=== PATIENT | female | born 1940 | race Caucasian/White ===

== ENCOUNTER → 2016-09-09 | Outpatient (REF) | payer MEDICARE, OTHER ==
[~2016-09-09] MED LIST: /BENA10TA PO; /CARB20TAB OR; /LAMO10TA OR; /LAMO20TA OR; ACET-654 PO; ASPI325T OR; CALCCHW12 OR; CARB100C PO; CLOP75TA2 PO; OMEP20CA3 PO; PRIM125TAB PO; PRIM250T3 OR
[2016-09-09 19:38] LABS: MEAN CORPUSCULAR HEMOGLOBIN 31.2 pg (27.0-33.0); MEAN CORPUSCULAR HGB CONC 32.9 g/dl (32.0-36.5); MEAN CORPUSCULAR VOLUME 94.8 fl (80.0-96.0); RED CELL DISTRIBUTION WIDTH 12.9 % (11.5-14.5); WHITE BLOOD COUNT 5.6 K/mm3 (4.0-10.0)
[2016-09-09 20:20] LABS: ALBUMIN 3.6 GM/DL (3.2-5.2); ALBUMIN/GLOBULIN RATIO 1.09 (1.00-1.93); BILIRUBIN,TOTAL 0.3 MG/DL (0.2-1.0); CALCIUM LEVEL 9.4 MG/DL (8.8-10.2); CARBAMAZEPINE (TEGRETOL) LEVEL 5.9 UG/ML (4.0-10.0); CREATININE FOR GFR 0.97 MG/DL (0.55-1.02); FREE T4 1.08 NG/DL (0.76-1.46); GLOMERULAR FILTRATION RATE 59.3 (>39); POTASSIUM SERUM 4.7 MEQ/L (3.5-5.1); TOTAL PROTEIN 6.9 GM/DL (6.4-8.2)
[2016-09-12 00:06] LABS: PHENOBARBITAL (PRIMIDONE) 19 ug/mL (15-40)
== END ==
LOC: M SFHCADAM 11:38
PROVIDERS: ATTEND Family Medicine
DX: R53.83 Other fatigue (principal); I11.9 Hypertensive heart disease without heart failure; E04.2 Nontoxic multinodular goiter; G40.89 Other seizures; E78.2 Mixed hyperlipidemia; M81.0 Age-related osteoporosis without current pathological fracture; E55.9 Vitamin D deficiency, unspecified
CPT/HCPCS: 80053; 80061; 80156; 80175; 80188; 82306; 84439; 84443; 85027; G0463

== ENCOUNTER → 2017-01-28 | Outpatient (REF) | payer MEDICARE, OTHER ==
[2017-01-31 14:13] LABS: PHENOBARBITAL (PRIMIDONE) 21 ug/mL (15-40)
== END ==
LOC: M LABNEURO 18:00 → M LAB REF 18:00
PROVIDERS: ATTEND Physician Assistant Medical
DX: Z51.81 Encounter for therapeutic drug level monitoring (principal); Z79.899 Other long term (current) drug therapy; R56.9 Unspecified convulsions

== ENCOUNTER → 2017-03-12 | Outpatient (CLI) | payer MEDICARE, OTHER | LOC: M ADAMS 10:59 | DX: R07.81 Pleurodynia (principal); M85.88 Other specified disorders of bone density and structure, other site; Z87.81 Personal history of (healed) traumatic fracture | CPT/HCPCS: 71101 ==

== ENCOUNTER → 2017-07-09 | Outpatient (REF) | payer MEDICARE, OTHER ==
[2017-07-09 12:55] LABS: HEMATOCRIT 38.5 % (36.0-47.0); HEMOGLOBIN 12.8 g/dl (12.0-15.5); MEAN CORPUSCULAR HGB CONC 33.2 g/dl (32.0-36.5); MEAN CORPUSCULAR VOLUME 93.2 fl (80.0-96.0); PLATELET COUNT, AUTOMATED 265 10^3/uL (150-450); RED BLOOD COUNT 4.13 10^6/uL (4.00-5.40); RED CELL DISTRIBUTION WIDTH 12.7 % (11.5-14.5); WHITE BLOOD COUNT 7.9 10^3/uL (4.0-10.0)
[2017-07-09 14:12] LABS: ALBUMIN 3.8 GM/DL (3.2-5.2); ALBUMIN/GLOBULIN RATIO 1.15 (1.00-1.93); ALKALINE PHOSPHATASE 164 U/L (45-117); ALT/SGPT 12 U/L (12-78); ANION GAP 6 MEQ/L (8-16); AST/SGOT 10 U/L (7-37); BILIRUBIN,TOTAL 0.3 MG/DL (0.2-1.0); BLOOD UREA NITROGEN 26 MG/DL (7-18); CALCIUM LEVEL 9.7 MG/DL (8.8-10.2); CARBON DIOXIDE LEVEL 31 MEQ/L (21-32); CHLORIDE LEVEL 102 MEQ/L (98-107); CREATININE FOR GFR 1.11 MG/DL (0.55-1.30); FREE T4 1.11 NG/DL (0.76-1.46); GLOMERULAR FILTRATION RATE 50.6 (>39); GLUCOSE, FASTING 76 MG/DL (70-100); POTASSIUM SERUM 5.1 MEQ/L (3.5-5.1); SODIUM LEVEL 139 MEQ/L (136-145); TOTAL PROTEIN 7.1 GM/DL (6.4-8.2)
== END ==
LOC: M SFHCADAM 10:37
DX: I11.9 Hypertensive heart disease without heart failure (principal); G40.89 Other seizures; E04.2 Nontoxic multinodular goiter
CPT/HCPCS: 84443

== ENCOUNTER → 2017-09-16 | Outpatient (REF) | payer MEDICARE, OTHER ==
[2017-09-16 19:02] LABS: CARBAMAZEPINE (TEGRETOL) LEVEL 5.3 UG/ML (4.0-10.0)
[2017-09-19 16:49] LABS: LAMOTRIGINE (LAMICTAL) 1.4 ug/mL (2.0-20.0); PHENOBARBITAL (PRIMIDONE) 21 ug/mL (15-40)
== END ==
LOC: M LABDRWCV 17:57
DX: R56.9 Unspecified convulsions (principal); Z51.81 Encounter for therapeutic drug level monitoring; Z79.899 Other long term (current) drug therapy
CPT/HCPCS: 80156

== ENCOUNTER 2018-04-06 18:04 | Emergency (ER) | payer MEDICARE, OTHER ==
[~2018-04-06] VITALS: Ht 172.7 cm; Wt 81.8 kg
[2018-04-06] MEDS ORDERED: MORPHINE 2 MG/ML 1ML SYRINGE (J2270) SC ONE (19:45)
[2018-04-06] MEDS ORDERED: MORPHINE 2 MG/ML 1ML SYRINGE (J2270) IV ONE ×2 (20:00→23:45)
[2018-04-06 21:29] LABS: HEMOGLOBIN 12.4 g/dl (12.0-15.5); MEAN CORPUSCULAR HEMOGLOBIN 30.7 pg (27.0-33.0); MEAN CORPUSCULAR HGB CONC 32.6 g/dl (32.0-36.5); MEAN CORPUSCULAR VOLUME 94.1 fl (80.0-96.0); PLATELET COUNT, AUTOMATED 264 10^3/uL (150-450); RED BLOOD COUNT 4.04 10^6/uL (4.00-5.40)
[2018-04-06 21:40] LABS: CALCIUM LEVEL 9.4 MG/DL (8.8-10.2); CREATININE FOR GFR 0.98 MG/DL (0.55-1.30); GLOMERULAR FILTRATION RATE 58.3 (>39); POTASSIUM SERUM 4.5 MEQ/L (3.5-5.1)
[2018-04-06 23:45] VITALS: BP 136/90
--- NOTE | 2018-04-07 08:33 | REP ---
Chest one-view HISTORY: Preop Comparison: 02/06/2013 The lungs are clear. The cardiac silhouette is enlarged. The pulmonary vasculature is normal in appearance. Impression: Cardiomegaly. Electronically Signed by Jonnathan Navarro MD 04/07/2018 08:25 A
--- NOTE | 2018-04-07 08:41 | REP ---
LEFT FEMUR, FOUR VIEWS: HISTORY: Fall. The patient is status post left total hip replacement. An intramedullary venkata is present. There is a fracture of the distal femur. There is lateral displacement of the distal fracture fragment. There is no dislocation. There is moderate narrowing of the knee joint space. The bony structure is osteopenic. IMPRESSION: Fracture of the distal femur. Electronically Signed by Jonnathan Navarro MD 04/07/2018 08:42 A
--- NOTE | 2018-04-07 08:44 | REP ---
LEFT HIP, AP PELVIS: HISTORY: Fall. The patient is status post left total hip replacement. There is no fracture. Calcification is present lateral to the left acetabulum. This represents ligamentous or tendon calcification or an old avulsion fracture fragment. There is moderate narrowing of the right hip joint space. There is no dislocation. The bony structure is osteopenic. IMPRESSION: The patient is status post left total hip replacement. Electronically Signed by Jonnathan Navarro MD 04/07/2018 08:55 A
== END 2018-04-07 00:14 | disposition short-term general hospital (02) ==
LOC: EDBD 18:04 → M ED 18:04
DX: S72.402A Unspecified fracture of lower end of left femur, initial encounter for closed fracture (principal); W05.0XXA Fall from non-moving wheelchair, initial encounter; Y92.9 Unspecified place or not applicable
CPT/HCPCS: 71045; 73502; 73552; 80048; 85027; 86850; 86900; 86901; 96374; 96376; 99285; J2270

== ENCOUNTER → 2018-06-08 | Outpatient (REF) | payer MEDICARE, OTHER, BC ==
[~2018-06-08] MED LIST changes: -/CARB20TAB OR; -/LAMO10TA OR; -/LAMO20TA OR; +CARB1TAB20 OR; +LAMI1TAB7 OR; +LAMI1TAB9 OR
[2018-06-08 09:19] LABS: HEMATOCRIT 34.3 % (36.0-47.0); HEMOGLOBIN 11.1 g/dl (12.0-15.5); MEAN CORPUSCULAR HEMOGLOBIN 29.8 pg (27.0-33.0); MEAN CORPUSCULAR HGB CONC 32.4 g/dl (32.0-36.5); MEAN CORPUSCULAR VOLUME 92.2 fl (80.0-96.0); PLATELET COUNT, AUTOMATED 256 10^3/uL (150-450); RED BLOOD COUNT 3.72 10^6/uL (4.00-5.40); WHITE BLOOD COUNT 6.9 10^3/uL (4.0-10.0)
[2018-06-08 09:40] LABS: BLOOD UREA NITROGEN 25 MG/DL (7-18); CALCIUM LEVEL 9.3 MG/DL (8.8-10.2); CARBON DIOXIDE LEVEL 27 MEQ/L (21-32); CHLORIDE LEVEL 101 MEQ/L (98-107); CREATININE FOR GFR 0.78 MG/DL (0.55-1.30); GLOMERULAR FILTRATION RATE > 60.0 (>39); GLUCOSE, FASTING 81 MG/DL (70-100); POTASSIUM SERUM 4.9 MEQ/L (3.5-5.1); SODIUM LEVEL 135 MEQ/L (136-145)
== END ==
PROVIDERS: ATTEND Family Medicine
DX: I10 Essential (primary) hypertension (principal)

== ENCOUNTER → 2018-06-15 | Outpatient (REF) ==
[2018-06-15 09:35] LABS: HEMATOCRIT 32.7 % (36.0-47.0); HEMOGLOBIN 10.8 g/dl (12.0-15.5); MEAN CORPUSCULAR HEMOGLOBIN 29.9 pg (27.0-33.0); MEAN CORPUSCULAR VOLUME 90.6 fl (80.0-96.0); PLATELET COUNT, AUTOMATED 241 10^3/uL (150-450); RED BLOOD COUNT 3.61 10^6/uL (4.00-5.40); WHITE BLOOD COUNT 7.1 10^3/uL (4.0-10.0)
[2018-06-15 10:01] LABS: BLOOD UREA NITROGEN 20 MG/DL (7-18); CALCIUM LEVEL 9.3 MG/DL (8.8-10.2); CARBON DIOXIDE LEVEL 27 MEQ/L (21-32); CHLORIDE LEVEL 100 MEQ/L (98-107); CREATININE FOR GFR 0.71 MG/DL (0.55-1.30); GLOMERULAR FILTRATION RATE > 60.0 (>39); GLUCOSE, FASTING 85 MG/DL (70-100); POTASSIUM SERUM 4.5 MEQ/L (3.5-5.1); SODIUM LEVEL 133 MEQ/L (136-145)
== END ==
PROVIDERS: ATTEND Family Medicine
DX: I10 Essential (primary) hypertension (principal)

== ENCOUNTER 2018-06-18 16:20 | Emergency (ER) | payer MEDICARE, OTHER ==
[~2018-06-18] VITALS: Ht 167.6 cm; Wt 92.7 kg
[2018-06-18] MEDS ORDERED: ONDANSETRON 4MG/2ML VIAL (J2405) IV ONE ×2 (16:30→17:00)
[2018-06-18] MEDS ORDERED: LABETALOL HCL 100 MG/20 ML VIAL IV PRN (16:45)
--- NOTE | 2018-06-18 17:07 | REP ---
CT of the brain without IV contrast: Comparison is 02/06/2013. There is a craniotomy bone flap in the right frontal temporal area, similar to the prior study. There is no hemorrhage. There is no edema, mass effect or midline shift. The sulci and ventricles are enlarged compatible with diffuse volume loss. This is unchanged. There are areas of decreased attenuation in the subcortical periventricular white matter compatible with chronic microvascular ischemia, unchanged. There is diffuse volume loss, unchanged. There is a lacunar infarct in the thalamus on the left, unchanged. Impression: There is no hemorrhage, acute infarct or mass. There are is a diffuse volume loss and chronic microvascular ischemia, unchanged. 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 There is a right frontotemporal craniotomy bone flap, unchanged. Electronically Signed by Roe Rojas MD 06/18/2018 04:58 P
--- NOTE | 2018-06-18 17:14 | REP ---
Acute abdominal series five views including AP chest, two supine views of the abdomen and a cross-table lateral view of the abdomen: AP chest: Comparison is 04/06/2018. The lung galvin are clear. There is cardiomegaly, unchanged. The rafaela, mediastinum, skeletal structures are unchanged. The study is performed with the patient supine, and is insensitive for free subdiaphragmatic air. Impression: No acute cardiopulmonary findings. The study is insensitive for free subdiaphragmatic air. Abdomen, supine and cross-table lateral views: The bowel gas pattern is normal. On the lateral view there is a large linear density mimicking an air-fluid level, likely an artifact. No air-fluid levels are identified otherwise. There is a left hip arthroplasty. Impression: No evidence of bowel obstruction. Normal bowel gas pattern. Unusual linear density on the cross-table lateral review, likely an artifact. Electronically Signed by Roe Rojas MD 06/18/2018 05:06 P
[2018-06-18] MEDS ORDERED: TUBE5INJ ID (17:24)
[2018-06-18] MEDS ORDERED: LISI10TA4 PO (17:24)
[2018-06-18] MEDS ORDERED: BAYE325T12 PO (17:24)
[2018-06-18] MEDS ORDERED: OMEP20CA3 PO (17:24)
[2018-06-18] MEDS ORDERED: RANI150T14 PO (17:24)
[2018-06-18] MEDS ORDERED: SENN18TA PO (17:24)
[2018-06-18] MEDS ORDERED: ACET-897 PO (17:24)
[2018-06-18] MEDS ORDERED: CARB20TAXR PO (17:24)
[2018-06-18] MEDS ORDERED: DULC10SU2 PR (17:24)
[2018-06-18] MEDS ORDERED: LAMI1TAB7 PO (17:24)
[2018-06-18] MEDS ORDERED: PRIM250T8 PO (17:24)
[2018-06-18] MEDS ORDERED: IRON65TA2 PO (17:24)
[2018-06-18] MEDS ORDERED: PROC25SU24 PR (17:24)
[2018-06-18] MEDS ORDERED: OYST250T6 PO (17:24)
[2018-06-18] MEDS ORDERED: MOM30SS PO (17:24)
[2018-06-18] MEDS ORDERED: LOVE1INJ2 SC (17:24)
[2018-06-18] MEDS ORDERED: COLA100C5 PO (17:24)
[2018-06-18] MEDS ORDERED: CLOT1CRE27 TOP (17:24)
[2018-06-18] MEDS ORDERED: ACET-907 PO (17:24)
[2018-06-18] MEDS ORDERED: ENEMENE PR (17:24)
[2018-06-18 17:56] LABS: ALBUMIN 3.8 GM/DL (3.2-5.2); ALT/SGPT 23 U/L (12-78); BILIRUBIN,DIRECT < 0.1 MG/DL (0.0-0.2); BILIRUBIN,TOTAL 0.4 MG/DL (0.2-1.0); BLOOD UREA NITROGEN 22 MG/DL (7-18); CALCIUM LEVEL 9.4 MG/DL (8.8-10.2); CARBON DIOXIDE LEVEL 26 MEQ/L (21-32); CHLORIDE LEVEL 98 MEQ/L (98-107); CPK CREATINE PHOSPHOKINASE 116 U/L (26-192); CREATININE FOR GFR 0.72 MG/DL (0.55-1.30); GLOMERULAR FILTRATION RATE > 60.0 (>39); GLUCOSE, FASTING 135 MG/DL (70-100); LIPASE 60 U/L (73-393); MB/CK RELATIVE INDEX 1.47 (< OR =4); POTASSIUM SERUM 4.8 MEQ/L (3.5-5.1); SODIUM LEVEL 134 MEQ/L (136-145); TOTAL PROTEIN 7.6 GM/DL (6.4-8.2); TROPONIN I < 0.02 NG/ML (< 0.10)
[2018-06-18 18:02] LABS: BASO % 0.2 % (0.0-1.0); HEMATOCRIT 39.4 % (36.0-47.0); HEMOGLOBIN 13.4 g/dl (12.0-15.5); LYMPH # 0.5 10^3/uL (1.5-4.5); LYMPH % 6.2 % (24.0-44.0); MEAN CORPUSCULAR HEMOGLOBIN 30.3 pg (27.0-33.0); MEAN CORPUSCULAR VOLUME 89.1 fl (80.0-96.0); MONO # 0.2 10^3/uL (0.0-0.8); MONO % 2.7 % (0.0-5.0); NEUTROPHILS # 7.8 10^3/uL (1.8-7.7); NEUTROPHILS % 90.6 % (36.0-66.0); PLATELET COUNT, AUTOMATED 279 10^3/uL (150-450); RED BLOOD COUNT 4.42 10^6/uL (4.00-5.40); WHITE BLOOD COUNT 8.6 10^3/uL (4.0-10.0)
--- NOTE | 2018-06-18 19:41 | ECGEPIP ---
Stationary ECG Study [facility] - ED Test Date: 2018-06-18 Pat Name: TERRIE FONSECA Department: Room: - Gender: F [employer] Chief Scientist: TC : 1940 Requested By: KRYSTLE Bey Order Number: [id number] Reading MD: Reuben Bosch Measurements Intervals [place] Rate: 83 P: 54 MS: 231 QRS: -40 QRSD: 101 T: 41 QT: 378 QTc: 445 Interpretive Statements SINUS RHYTHM WITH FIRST DEGREE AV BLOCK WITH OCCASIONAL VENTRICULAR PREMATURE COMP COMPLEXES MARKED LEFT AXIS DEVIATION PATTERN CONSISTENT WITH PULMONARY DISEASE INCOMPLETE RIGHT BUNDLE BRANCH BLOCK INFERIOR INFARCT AGE UNDETERMINED DELAYED R WAVE PROGRESSION CW 02/06/13 RATE INCREASED Electronically Signed On 06-18-2018 19:41:21 EDT by Reuben Bosch
[2018-06-18 20:05] VITALS: BP 122/66
[2018-06-18 21:33] LABS: ERYTHROCYTE SEDIMENTATION RATE 24 mm/hr (0-30)
== END 2018-06-18 20:17 | disposition home or self-care (01) ==
LOC: M ED 16:20 → EDBD 16:20 → M ED 20:17
DX: R51 Headache (principal); Z79.899 Other long term (current) drug therapy; Z88.8 Allergy status to other drugs, medicaments and biological substances; J30.89 Other allergic rhinitis
CPT/HCPCS: 36415; 51702; 70450; 74021; 80048; 80076; 81001; 82550; 82553; 83690; 84484; 85025; 85652; 93005; 93041; 96374; 96375; 99285; J2405

== ENCOUNTER → 2018-06-21 | Outpatient (REF) | payer MEDICARE, OTHER ==
[~2018-06-21] MED LIST changes: +ACET-897 PO; +ACET-907 PO; +BAYE325T12 PO; +CARB20TAXR PO; +CLOT1CRE27 TOP; +COLA100C5 PO; +DULC10SU2 PR; +ENEMENE PR; +IRON65TA2 PO; +LAMI1TAB7 PO; +LISI10TA4 PO; +LOVE1INJ2 SC; +MOM30SS PO; +OYST250T6 PO; +PRIM250T8 PO; +PROC25SU24 PR; +RANI150T14 PO; +SENN18TA PO; +TUBE5INJ ID
[2018-06-23 14:11] LABS: LAMOTRIGINE (LAMICTAL) 2.6 ug/mL (2.0-20.0)
== END ==
PROVIDERS: ATTEND Family Medicine
DX: R56.9 Unspecified convulsions (principal)

== ENCOUNTER → 2018-06-22 | Outpatient (REF) | payer MEDICARE, OTHER ==
[2018-06-22 09:21] LABS: HEMATOCRIT 37.1 % (36.0-47.0); MEAN CORPUSCULAR HEMOGLOBIN 30.2 pg (27.0-33.0); MEAN CORPUSCULAR HGB CONC 32.3 g/dl (32.0-36.5); MEAN CORPUSCULAR VOLUME 93.5 fl (80.0-96.0); PLATELET COUNT, AUTOMATED 261 10^3/uL (150-450); RED BLOOD COUNT 3.97 10^6/uL (4.00-5.40); WHITE BLOOD COUNT 5.9 10^3/uL (4.0-10.0)
[2018-06-22 09:33] LABS: BLOOD UREA NITROGEN 32 MG/DL (7-18); CALCIUM LEVEL 9.4 MG/DL (8.8-10.2); CARBON DIOXIDE LEVEL 29 MEQ/L (21-32); CHLORIDE LEVEL 103 MEQ/L (98-107); CREATININE FOR GFR 0.89 MG/DL (0.55-1.30); GLOMERULAR FILTRATION RATE > 60.0 (>39); GLUCOSE, FASTING 91 MG/DL (70-100); POTASSIUM SERUM 4.2 MEQ/L (3.5-5.1); SODIUM LEVEL 139 MEQ/L (136-145)
== END ==
PROVIDERS: ATTEND Family Medicine
DX: R56.9 Unspecified convulsions (principal)

== ENCOUNTER → 2018-07-07 | Outpatient (REF) | payer MEDICARE, OTHER ==
[2018-07-07 09:15] LABS: HEMATOCRIT 34.2 % (36.0-47.0); HEMOGLOBIN 11.2 g/dl (12.0-15.5); MEAN CORPUSCULAR HEMOGLOBIN 30.6 pg (27.0-33.0); MEAN CORPUSCULAR HGB CONC 32.7 g/dl (32.0-36.5); MEAN CORPUSCULAR VOLUME 93.4 fl (80.0-96.0); PLATELET COUNT, AUTOMATED 196 10^3/uL (150-450); RED BLOOD COUNT 3.66 10^6/uL (4.00-5.40); WHITE BLOOD COUNT 5.5 10^3/uL (4.0-10.0)
[2018-07-07 09:33] LABS: BLOOD UREA NITROGEN 26 MG/DL (7-18); CALCIUM LEVEL 8.9 MG/DL (8.8-10.2); CARBON DIOXIDE LEVEL 29 MEQ/L (21-32); CHLORIDE LEVEL 105 MEQ/L (98-107); CREATININE FOR GFR 0.89 MG/DL (0.55-1.30); GLOMERULAR FILTRATION RATE > 60.0 (>39); GLUCOSE, FASTING 83 MG/DL (70-100); POTASSIUM SERUM 4.8 MEQ/L (3.5-5.1); SODIUM LEVEL 140 MEQ/L (136-145)
== END ==
PROVIDERS: ATTEND Family Medicine
DX: I10 Essential (primary) hypertension (principal)

== ENCOUNTER → 2018-07-27 | Outpatient (CLI) | payer MEDICARE, OTHER ==
--- NOTE | 2018-07-27 15:15 | REP ---
Clinical: Status post fixation for intertrochanteric femur fracture. Technique: AP and cross-table lateral views of the left femur. Findings: The patient is known to be status post satisfactory open reduction and fixation. Overlying postsurgical changes noted. Anatomical alignment of the remaining osseous structures as well as the orthopedic hardware noted. Impression: Status post satisfactory open reduction and fixation. Electronically Signed by Shivam Pérez MD 07/27/2018 03:07 P
== END ==
LOC: M RAD 12:44
PROVIDERS: ATTEND Family Medicine
DX: Z47.89 Encounter for other orthopedic aftercare (principal)

== ENCOUNTER → 2018-08-04 | Outpatient (REF) | payer MEDICARE, OTHER ==
[2018-08-04 10:06] LABS: HEMATOCRIT 36.9 % (36.0-47.0); HEMOGLOBIN 12.1 g/dl (12.0-15.5); MEAN CORPUSCULAR HGB CONC 32.8 g/dl (32.0-36.5); MEAN CORPUSCULAR VOLUME 94.6 fl (80.0-96.0); PLATELET COUNT, AUTOMATED 236 10^3/uL (150-450)
[2018-08-04 10:42] LABS: BLOOD UREA NITROGEN 21 MG/DL (7-18); CALCIUM LEVEL 9.7 MG/DL (8.8-10.2); CARBON DIOXIDE LEVEL 29 MEQ/L (21-32); CHLORIDE LEVEL 101 MEQ/L (98-107); CREATININE FOR GFR 0.81 MG/DL (0.55-1.30); GLOMERULAR FILTRATION RATE > 60.0 (>39); GLUCOSE, FASTING 128 MG/DL (70-100); POTASSIUM SERUM 4.8 MEQ/L (3.5-5.1); SODIUM LEVEL 137 MEQ/L (136-145)
== END ==
PROVIDERS: ATTEND Family Medicine
DX: I10 Essential (primary) hypertension (principal)

== ENCOUNTER → 2018-09-01 | Outpatient (REF) | payer MEDICARE, OTHER ==
[2018-09-01 09:34] LABS: HEMOGLOBIN 11.6 g/dl (12.0-15.5); MEAN CORPUSCULAR HEMOGLOBIN 31.7 pg (27.0-33.0); MEAN CORPUSCULAR HGB CONC 33.1 g/dl (32.0-36.5); MEAN CORPUSCULAR VOLUME 95.6 fl (80.0-96.0); PLATELET COUNT, AUTOMATED 221 10^3/uL (150-450); RED BLOOD COUNT 3.66 10^6/uL (4.00-5.40); WHITE BLOOD COUNT 5.1 10^3/uL (4.0-10.0)
[2018-09-01 09:39] LABS: BLOOD UREA NITROGEN 20 MG/DL (7-18); CALCIUM LEVEL 9.6 MG/DL (8.8-10.2); CARBON DIOXIDE LEVEL 28 MEQ/L (21-32); CHLORIDE LEVEL 103 MEQ/L (98-107); CREATININE FOR GFR 0.77 MG/DL (0.55-1.30); GLOMERULAR FILTRATION RATE > 60.0 (>39); GLUCOSE, FASTING 84 MG/DL (70-100); POTASSIUM SERUM 4.6 MEQ/L (3.5-5.1); SODIUM LEVEL 137 MEQ/L (136-145)
== END ==
PROVIDERS: ATTEND Family Medicine
DX: I10 Essential (primary) hypertension (principal)

== ENCOUNTER → 2018-09-09 | Outpatient (CLI) | payer MEDICARE ==
[~2018-09-09] MED LIST changes: +OMEP20CA4 PO
--- NOTE | 2018-09-09 18:49 | REP ---
Left femur: Four views: History: Displaced supracondylar fracture. Findings: Four views left femur are compared with prior study from July 27, 2018. The patient status post right hip replacement with intramedullary venkata in place. In addition a laterally applied screw plate fixation device is seen fixing the distal femur where there is evidence of a healing comminuted distal femoral fracture. This is anatomically aligned. No periosteal callus formation is visible. There is diffuse osteopenia. Electronically Signed by Homero Morgan MD 09/10/2018 08:04 A
== END ==
LOC: M RAD 12:55
PROVIDERS: ATTEND Family Medicine
DX: S72.402D Unspecified fracture of lower end of left femur, subsequent encounter for closed fracture with routine healing (principal); X58.XXXD Exposure to other specified factors, subsequent encounter; Y92.89 Other specified places as the place of occurrence of the external cause

== ENCOUNTER → 2018-09-13 | Outpatient (REF) ==
[2018-09-13 13:50] LABS: HEMATOCRIT 37.9 % (36.0-47.0); HEMOGLOBIN 12.6 g/dl (12.0-15.5); MEAN CORPUSCULAR HEMOGLOBIN 31.4 pg (27.0-33.0); MEAN CORPUSCULAR HGB CONC 33.2 g/dl (32.0-36.5); MEAN CORPUSCULAR VOLUME 94.5 fl (80.0-96.0); PLATELET COUNT, AUTOMATED 263 10^3/uL (150-450); RED BLOOD COUNT 4.01 10^6/uL (4.00-5.40); WHITE BLOOD COUNT 6.7 10^3/uL (4.0-10.0)
[2018-09-13 14:09] LABS: C REACTIVE PROTEIN QUANTITATIV 2.57 MG/DL (0.00-0.30); CALCIUM LEVEL 9.6 MG/DL (8.8-10.2); GLOMERULAR FILTRATION RATE 56.9 (>39); POTASSIUM SERUM 4.7 MEQ/L (3.5-5.1); URIC ACID 5.6 MG/DL (2.6-6.0)
[2018-09-13 14:21] LABS: ERYTHROCYTE SEDIMENTATION RATE 32 mm/hr (0-30)
--- NOTE | 2018-09-13 17:00 | REP ---
RIGHT 1ST TOE: Single portable view of the right 1st toe was performed. There is no fracture or dislocation. There is no overt osseous destruction or evidence of periosteal reaction. IMPRESSION: No evidence of fracture or dislocation. No definite radiographic sign of osteomyelitis. Electronically Signed by Roe Garner MD 09/14/2018 05:24 P
== END ==
PROVIDERS: ATTEND Family Medicine
DX: R23.8 Other skin changes (principal)

== ENCOUNTER → 2018-09-13 | Outpatient (REF) | PROVIDERS: ATTEND Family Medicine | DX: L53.9 Erythematous condition, unspecified (principal) ==

== ENCOUNTER → 2018-09-15 | Outpatient (REF) ==
[2018-09-15 10:11] LABS: HEMATOCRIT 37.7 % (36.0-47.0); HEMOGLOBIN 12.2 g/dl (12.0-15.5); MEAN CORPUSCULAR HEMOGLOBIN 30.7 pg (27.0-33.0); MEAN CORPUSCULAR HGB CONC 32.4 g/dl (32.0-36.5); MEAN CORPUSCULAR VOLUME 94.7 fl (80.0-96.0); PLATELET COUNT, AUTOMATED 247 10^3/uL (150-450); RED BLOOD COUNT 3.98 10^6/uL (4.00-5.40)
[2018-09-15 10:33] LABS: C REACTIVE PROTEIN QUANTITATIV 1.91 MG/DL (0.00-0.30); CALCIUM LEVEL 9.3 MG/DL (8.8-10.2); CREATININE FOR GFR 0.98 MG/DL (0.55-1.30); GLOMERULAR FILTRATION RATE 58.3 (>39); POTASSIUM SERUM 4.5 MEQ/L (3.5-5.1)
[2018-09-15 10:36] LABS: ERYTHROCYTE SEDIMENTATION RATE 21 mm/hr (0-30)
== END ==
PROVIDERS: ATTEND Family Medicine
DX: L53.9 Erythematous condition, unspecified (principal)

== ENCOUNTER → 2018-11-03 | Outpatient (REF) | payer MEDICARE, OTHER ==
[2018-11-03 11:28] LABS: HEMATOCRIT 37.9 % (36.0-47.0); HEMOGLOBIN 12.5 g/dl (12.0-15.5); MEAN CORPUSCULAR HEMOGLOBIN 30.6 pg (27.0-33.0); MEAN CORPUSCULAR VOLUME 92.9 fl (80.0-96.0); PLATELET COUNT, AUTOMATED 263 10^3/uL (150-450); RED BLOOD COUNT 4.08 10^6/uL (4.00-5.40); WHITE BLOOD COUNT 6.4 10^3/uL (4.0-10.0)
[2018-11-03 11:59] LABS: BLOOD UREA NITROGEN 17 MG/DL (7-18); CALCIUM LEVEL 9.4 MG/DL (8.8-10.2); CARBON DIOXIDE LEVEL 27 MEQ/L (21-32); CHLORIDE LEVEL 103 MEQ/L (98-107); CREATININE FOR GFR 0.94 MG/DL (0.55-1.30); GLOMERULAR FILTRATION RATE > 60.0 (>39); GLUCOSE, FASTING 125 MG/DL (70-100); POTASSIUM SERUM 4.2 MEQ/L (3.5-5.1); SODIUM LEVEL 140 MEQ/L (136-145)
== END ==
PROVIDERS: ATTEND Physician Assistant
DX: I10 Essential (primary) hypertension (principal)

== ENCOUNTER → 2018-12-01 | Outpatient (REF) ==
[2018-12-01 08:58] LABS: HEMATOCRIT 36.5 % (36.0-47.0); HEMOGLOBIN 11.9 g/dl (12.0-15.5); MEAN CORPUSCULAR HEMOGLOBIN 30.5 pg (27.0-33.0); MEAN CORPUSCULAR HGB CONC 32.6 g/dl (32.0-36.5); MEAN CORPUSCULAR VOLUME 93.6 fl (80.0-96.0); PLATELET COUNT, AUTOMATED 244 10^3/uL (150-450); WHITE BLOOD COUNT 5.7 10^3/uL (4.0-10.0)
[2018-12-01 09:19] LABS: BLOOD UREA NITROGEN 16 MG/DL (7-18); CALCIUM LEVEL 9.3 MG/DL (8.8-10.2); CARBON DIOXIDE LEVEL 30 MEQ/L (21-32); CHLORIDE LEVEL 103 MEQ/L (98-107); CREATININE FOR GFR 0.79 MG/DL (0.55-1.30); GLOMERULAR FILTRATION RATE > 60.0 (>39); GLUCOSE, FASTING 84 MG/DL (70-100); POTASSIUM SERUM 4.3 MEQ/L (3.5-5.1); SODIUM LEVEL 140 MEQ/L (136-145)
== END ==
PROVIDERS: ATTEND Family Medicine
DX: I10 Essential (primary) hypertension (principal)

== ENCOUNTER → 2018-12-02 | Outpatient (REF) ==
[~2018-12-02] MED LIST changes: +OMEP1CAP73 PO; -OMEP20CA4 PO; +PRIM50TA6 PO; +TRAM50TA2 PO; +XARE10TA PO
[2018-12-02 13:41] LABS: HEMATOCRIT 41.6 % (36.0-47.0); HEMOGLOBIN 13.6 g/dl (12.0-15.5); MEAN CORPUSCULAR HEMOGLOBIN 30.6 pg (27.0-33.0); MEAN CORPUSCULAR HGB CONC 32.7 g/dl (32.0-36.5); MEAN CORPUSCULAR VOLUME 93.5 fl (80.0-96.0); PLATELET COUNT, AUTOMATED 271 10^3/uL (150-450); RED BLOOD COUNT 4.45 10^6/uL (4.00-5.40); WHITE BLOOD COUNT 7.8 10^3/uL (4.0-10.0)
[2018-12-02 14:04] LABS: ALBUMIN 3.8 GM/DL (3.2-5.2); ALT/SGPT 16 U/L (12-78); BILIRUBIN,TOTAL 0.3 MG/DL (0.2-1.0); BLOOD UREA NITROGEN 17 MG/DL (7-18); CALCIUM LEVEL 9.7 MG/DL (8.8-10.2); CARBON DIOXIDE LEVEL 30 MEQ/L (21-32); CHLORIDE LEVEL 100 MEQ/L (98-107); CREATININE FOR GFR 0.87 MG/DL (0.55-1.30); GLOMERULAR FILTRATION RATE > 60.0 (>39); GLUCOSE, FASTING 129 MG/DL (70-100); POTASSIUM SERUM 4.2 MEQ/L (3.5-5.1); SODIUM LEVEL 136 MEQ/L (136-145); TOTAL PROTEIN 7.1 GM/DL (6.4-8.2)
== END ==
PROVIDERS: ATTEND Physician Assistant
DX: R11.10 Vomiting, unspecified (principal)

== ENCOUNTER → 2018-12-20 | Outpatient (REF) ==
[~2018-12-20] MED LIST changes: -OMEP1CAP73 PO; +OMEP20CA4 PO; -PRIM50TA6 PO; -TRAM50TA2 PO; -XARE10TA PO
--- NOTE | 2018-12-20 12:16 | REP ---
CHEST, SINGLE VIEW: Single view of the chest is performed and compared to a prior study of 06/18/2018. There is mild cardiomegaly. No acute infiltrate is seen. Mediastinal silhouette us unremarkable except for some tortuosity of the thoracic aorta. IMPRESSION: No acute infiltrate. Electronically Signed by Roe Garnre MD 12/21/2018 05:33 P
== END ==
PROVIDERS: ATTEND Family Medicine
DX: I51.7 Cardiomegaly (principal)

== ENCOUNTER → 2019-01-26 | Outpatient (REF) ==
[2019-01-26 10:37] LABS: ALBUMIN 3.5 GM/DL (3.2-5.2); ALT/SGPT 15 U/L (12-78); BILIRUBIN,DIRECT < 0.1 MG/DL (0.0-0.2); BILIRUBIN,TOTAL 0.6 MG/DL (0.2-1.0); CARBAMAZEPINE (TEGRETOL) LEVEL 3.2 UG/ML (4.0-10.0); TOTAL PROTEIN 6.7 GM/DL (6.4-8.2)
[2019-01-31 14:10] LABS: LAMOTRIGINE (LAMICTAL) None Detected ug/mL (2.0-20.0)
== END ==
PROVIDERS: ATTEND Physician Assistant
DX: Z51.81 Encounter for therapeutic drug level monitoring (principal)

== ENCOUNTER → 2019-02-02 | Outpatient (REF) ==
[2019-02-02 09:05] LABS: HEMATOCRIT 37.3 % (36.0-47.0); HEMOGLOBIN 12.1 g/dl (12.0-15.5); MEAN CORPUSCULAR HEMOGLOBIN 30.9 pg (27.0-33.0); MEAN CORPUSCULAR HGB CONC 32.4 g/dl (32.0-36.5); MEAN CORPUSCULAR VOLUME 95.2 fl (80.0-96.0); PLATELET COUNT, AUTOMATED 265 10^3/uL (150-450); RED BLOOD COUNT 3.92 10^6/uL (4.00-5.40)
[2019-02-02 09:27] LABS: BLOOD UREA NITROGEN 19 MG/DL (7-18); CALCIUM LEVEL 9.2 MG/DL (8.8-10.2); CARBON DIOXIDE LEVEL 28 MEQ/L (21-32); CHLORIDE LEVEL 106 MEQ/L (98-107); GLOMERULAR FILTRATION RATE > 60.0 (>32); GLUCOSE, FASTING 95 MG/DL (70-100); POTASSIUM SERUM 4.3 MEQ/L (3.5-5.1); SODIUM LEVEL 140 MEQ/L (136-145)
== END ==
PROVIDERS: ATTEND Family Medicine
DX: I10 Essential (primary) hypertension (principal)

== ENCOUNTER 2019-02-20 23:11 | Inpatient (IN) | payer MEDICARE, OTHER ==
[~2019-02-20] VITALS: Ht 167.6 cm; Wt 99.1 kg
[2019-02-20] MEDS: carBAMazepine XR 200 MG TAB PO SCH (21:00)
[2019-02-20] MEDS: DOCUSATE SODIUM 100 MG CAP PO SCH (21:00)
[2019-02-20] MEDS: SENNA 8.6 MG TAB (SENOKOT) PO SCH (21:00)
[2019-02-20] MEDS: OMEPRAZOLE 20 MG CAP PO SCH (21:00)
[~2019-02-20 23:11] MED LIST changes: +OMEP-172 PO; -OMEP20CA4 PO
[2019-02-21] VITALS (8 sets, daily range): BP systolic 111–180; BP diastolic 67–98
[2019-02-21] MEDS ORDERED: PRIM50TA6 PO (00:26)
[2019-02-21] MEDS ORDERED: fentaNYL 100 MCG/2 ML INJECTION (J3010) IV ONE (01:00)
[2019-02-21] MEDS ORDERED: MORPHINE 2 MG/ML 1ML VIAL (J2270) IV PRN (01:45)
[2019-02-21] MEDS ORDERED: BISACODYL 10 MG SUPP PR PRN (01:45)
[2019-02-21] MEDS ORDERED: ACETAMINOPHEN TAB 650MG DOSE (2X325MG) PO PRN (01:45)
[2019-02-21] MEDS ORDERED: MOM 30ML SUSPENSION UDC PO PRN (01:45)
--- NOTE | 2019-02-21 01:54 | HPEPDOC ---
General Date of Admission 02/21/19 Date of Service: Feb 21, 2019 Chief Complaint The patient is a 78-year-old female admitted with a reason for visit of Hip Pain. Source: Patient, Old records Exam Limitations: No limitations Timing/Duration: 4-6 hours Severity: Moderate History of Present Illness Patient is 78 years old female with past medical history of hypertension, dementia, epilepsy, hyperlipidemia presented hospital after fall. Patient today fell down from the bed and broke her right distal femur. In emergency room patient was found to have on x-ray displaced fracture of the right distal femur. Orthopedic surgeon recommended to admit patient for possible surgical intervention. Patient stated that she has right lower extremity pain 5 out of 10. Patient denies fever, chills, nausea, palpitations, vomiting, shortness of breath, diarrhea or dysuria Home Medications Scheduled Acetaminophen (Tylenol Extra Strength) 500 Mg Tablet, 1,000 MG PO BID, (Reported) Aspirin (Aspirin) 325 Mg Tablet, 325 MG PO DAILY, (Reported) Calcium Carbonate/Vitamin D3 (Calcium 250-Vit D3 125 Tablet) 1 Each Tablet, 1 TAB PO BID, (Reported) Carbamazepine (Carbamazepine ER) 200 Mg Tab.er.12h, 200 MG PO BID, (Reported) Docusate Sodium (Colace) 100 Mg Capsule, 100 MG PO BID, (Reported) Lamotrigine (Lamictal) 100 Mg Tablet, 100 MG PO DAILY, (Reported) Lisinopril (Lisinopril) 10 Mg Tablet, 10 MG PO DAILY, (Reported) Omeprazole (Omeprazole) 20 Mg Capsule.dr, 20 MG PO BID, (Reported) Primidone (Primidone) 250 Mg Tablet, 250 MG PO BID, (Reported) Primidone (Primidone) 50 Mg Tablet, 50 MG PO DAILY, (Reported) TAKES AT NOON Ranitidine HCl (Ranitidine HCl) 150 Mg Tablet, 1 TAB PO BID, (Reported) Senna (Senna Lax) 8.6 Mg Tablet, 2 TAB PO QHS, (Reported) Scheduled PRN Acetaminophen (Tylenol) 325 Mg Tablet, 650 MG PO QID PRN for PAIN / FEVER, (Reported) Bisacodyl (Dulcolax) 10 Mg Supp.rect, 10 MG NE DAILY PRN for CONSTIPATION, (Reported) Milk Of Magnesia (Milk of Magnesia) 2,400 Mg/10 Ml Oral.susp, 10 ML PO DAILY PRN for CONSTIPATION, (Reported) Sodium Phosphate,[place]-Dibasic (Enema) 133 Ml Enema, 1 RAYNA NE DAILY PRN for CONSTIPATION, (Reported) Allergies Coded Allergies: alendronate sodium (Verified Allergy, Intermediate, DYSPHAGIA SECONDARY TO A SCHATZKI'S RING, 02/20/19) calcitonin (Verified Allergy, Mild, HEADACHE, 02/20/19) HAY FEVER (Verified Allergy, Unknown, 02/20/19) Past Medical History Medical History SEIZURES (DR BRAMBILA) ELEVATED CHOLESTEROL/ ELEV HDL GERD/ SCHATZI'S RING UGI 08/01 (NOT MENTIONED IN 08/10 UGI REPORT); DILATED VIA EGD 10/11 ESOPAGEAL DYSMOTILITY (UGI 08/10) + TYLER R HIP HAIRLINE FX HYPONATREMIA (LOUAH-WKRY-KWTY TEGRETOL) VITAMIN D DEFIENCY OSTEOPOROSIS--RECLAST GIVEN IN PAST (), HELD 2013 DOSE DUE TO DENTAL EXTRACTIONS 2012; DENTIST IN ME SCARED PT AWAY FROM FURTHER TX SCC OF LEFT INDEX FINGER ASPIRATION ON THIN LIQUIDS--SWALLOWING EVAL 08/10 MULTINODULAR GOITER US 08/10--NEG FNA 2003 NEUROPATHY LEGS--NCS DR BRAMBILA ADMITTED 02/11: AMS, PROB TEGRETOL TOXICITY HTN VIT B12 DEFIC (BORDERLINE) 03/15-- NORMALIZED ON ORAL TX BY 06/13, 10/14 DDD L/S SPINE, MINIMAL CENTRAL SPINAL STENOSIS L - MRI 03/15; DDD ANS SMALLL COMRPESSION FX L2 ON MRI 01/16 AT [facility] NEURO CHASE/OAB ? TIA 02/11 PEIP[facility] NEUROPATHY ON NCS/EMG AT NEURO PER 10/14 NOTE Surgical History L HIP FRACTURE REPAIR, R ARM FRACTURE REPAIR, REPAIR FRACTURED SKULL 06/2000 L HIP REPAIR 03/1997 DECLINED COLONOSCOPY 2006,2009, 2010 RIGHT HAND AND ARM FRACTURE REPAIR FINGER SURGERY ON RIGHT HAND Family History FATHER: 71 YRS, NATURAL CAUSES, DIAGNOSED WITH OTHER MOTHER: 84 YRS, NATURAL CAUSES, DIAGNOSED WITH OTHER 2 BROTHERS - 1 HEART DISEASE 1 WAR 1 SISTER BREAST CA, NO KNOWN FAMILY HISTORY OF ANY UROLOGICALLY RELATED DISEASES/CANCERS. Social History * Smoker: former Smoker Alcohol: Denies Drugs: denies A-FIB/CHADSVASC A-FIB History Current/History of A-Fib/PAF?: No Current PO Anticoag Therapy: No Review of Systems Constitutional: Denies: Chills Eyes: Denies: Pain, Vision change ENT: Denies: Head Aches Skin: Denies: Rash, Lesions Pulmonary: Denies: Dyspnea, Cough Cardiovascular: Denies: Chest Pain, Palpitations Gastrointestinal: Denies: Nausea Genitourinary: Denies: Dysuria, Frequency Hematologic: Denies: Bruising Endocrine: Denies: Polydipsia, Polyphagia Musculoskeletal: Reports: Leg Pain; Denies: Neck Pain Neurological: Denies: Weakness Psych: Reports: Mood Normal Physical Examination General Exam: Positive: Alert, Cooperative Eye Exam: Positive: PERRLA, Conjunctiva & lids normal Neck Exam: Positive: Supple; Negative: JVD Chest Exam: Positive: Clear to auscultation Heart Exam: Positive: Rate Normal Telemetry: Positive: No significant arrhythmia Abdomen Exam: Positive: Normal bowel sounds Extremity Exam: Positive: Tenderness (right femur); Negative: Clubbing, Cyanosis Skin Exam: Positive: Nl turgor and temperature Neuro Exam: Positive: Cranial Nerves 3-12 NL Psych Exam: Positive: Mental status NL Vital Signs Vital Signs Date Time Temp Pulse Resp B/P (MAP) Pulse Ox O2 Delivery O2 Flow Rate FiO2 02/21/19 00:41 89 94 02/21/19 00:00 167/89 (115) 02/20/19 23:33 96.8 19 Room Air Assessment/Plan Patient is 78 years old female with past medical history of hypertension, dementia, epilepsy, hyperlipidemia presented hospital after fall. Patient today fell down from the bed and broke her right distal femur. In emergency room patient was found to have on x-ray displaced fracture of the right distal femur. Orthopedic surgeon recommended to admit patient for possible surgical inter vention. Patient stated that she has right lower extremity pain 5 out of 10. Patient denies fever, chills, nausea, palpitations, vomiting, shortness of breath, diarrhea or dysuria Problems (1) Right femoral fracture Status: Acute Problem Text: Secondary to mechanical fall Pain management IV fluid Nothing by mouth for now Orthopedics surgeon recommendation: admit patient for possible surgical intervention in the morning Plan / VTE VTE Prophylaxis Ordered?: Yes ELSIE VAZQUEZ DO Feb 21, 2019 01:54
[2019-02-21 01:58] LABS: BASO % 0.2 % (0.0-1.0); EOS % 0.3 % (0.0-3.0); HEMATOCRIT 30.3 % (36.0-47.0); HEMOGLOBIN 9.9 g/dl (12.0-15.5); LYMPH # 1.4 10^3/uL (1.5-5.0); LYMPH % 15.5 % (24.0-44.0); MEAN CORPUSCULAR HEMOGLOBIN 30.6 pg (27.0-33.0); MEAN CORPUSCULAR HGB CONC 32.7 g/dl (32.0-36.5); MEAN CORPUSCULAR VOLUME 93.5 fl (80.0-96.0); MONO # 0.5 10^3/uL (0.0-0.8); MONO % 5.5 % (0.0-5.0); NEUTROPHILS # 7.3 10^3/uL (1.5-8.5); NEUTROPHILS % 78.2 % (36.0-66.0); PLATELET COUNT, AUTOMATED 217 10^3/uL (150-450); RED BLOOD COUNT 3.24 10^6/uL (4.00-5.40); WHITE BLOOD COUNT 9.3 10^3/uL (4.0-10.0)
[2019-02-21 02:08] LABS: INR 1.06; PROTHROMBIN TIME 13.5 SECONDS (11.8-14.0)
[2019-02-21 02:22] LABS: BLOOD UREA NITROGEN 16 MG/DL (7-18); CALCIUM LEVEL 7.4 MG/DL (8.8-10.2); CARBON DIOXIDE LEVEL 24 MEQ/L (21-32); CHLORIDE LEVEL 112 MEQ/L (98-107); CK-MB VALUE MASS < 1.0 NG/ML (<3.6); CPK CREATINE PHOSPHOKINASE 44 U/L (26-192); CREATININE FOR GFR 0.52 MG/DL (0.55-1.30); GLOMERULAR FILTRATION RATE > 60.0 (>32); GLUCOSE, FASTING 98 MG/DL (70-100); MB/CK RELATIVE INDEX 2.27 (< OR =4); POTASSIUM SERUM 3.6 MEQ/L (3.5-5.1); SODIUM LEVEL 143 MEQ/L (136-145); TROPONIN I < 0.02 NG/ML (< 0.10)
--- NOTE | 2019-02-21 02:44 | REPVR ---
PROCEDURE INFORMATION: Exam: CT Right Lower Extremity Without Contrast; Thigh Exam date and time: 02/21/2019 2:10 AM Age: 78 years old Clinical indication: Other: FX; Additional info: Fracture TECHNIQUE: Imaging protocol: CT of the Right lower extremity without contrast was performed. Exam focused on the thigh. Radiation optimization: All CT scans at this facility use at least one of these dose optimization techniques: automated exposure control; mA and/or kV adjustment per patient size (includes targeted exams where dose is matched to clinical indication); or iterative reconstruction. COMPARISON: CR Femur RIGHT 02/21/2019 12:09 AM FINDINGS: Bones/joints: Osteopenia. Acute distracted comminuted distal right femoral shaft fracture. Severe osteoarthritis in the right knee. Small knee joint effusion. Intra-articular loose bodies. Degenerative changes in the right hip. Soft tissues: Normal. IMPRESSION: Acute distracted comminuted distal right femoral shaft fracture. Severe osteoarthritis in the right knee. Small knee joint effusion. Intra-articular loose bodies. Electronically signed by: Santhosh Flores On 02/21/2019 02:44:08 AM
[2019-02-21] MEDS: NS 1,000 ML IV SCH ×2 (03:00→12:00)
[2019-02-21] MEDS ORDERED: ceFAZolin SOD 2 GM in IV 1 EA IV SCH (06:00)
[2019-02-21 06:17] LABS: HEMATOCRIT 30.9 % (36.0-47.0); HEMOGLOBIN 10.1 g/dl (12.0-15.5); MEAN CORPUSCULAR HEMOGLOBIN 30.9 pg (27.0-33.0); MEAN CORPUSCULAR HGB CONC 32.7 g/dl (32.0-36.5); MEAN CORPUSCULAR VOLUME 94.5 fl (80.0-96.0); PLATELET COUNT, AUTOMATED 217 10^3/uL (150-450); RED BLOOD COUNT 3.27 10^6/uL (4.00-5.40); WHITE BLOOD COUNT 8.5 10^3/uL (4.0-10.0)
[2019-02-21 06:44] LABS: BLOOD UREA NITROGEN 16 MG/DL (7-18); CALCIUM LEVEL 8.7 MG/DL (8.8-10.2); CARBON DIOXIDE LEVEL 27 MEQ/L (21-32); CHLORIDE LEVEL 105 MEQ/L (98-107); CREATININE FOR GFR 0.71 MG/DL (0.55-1.30); GLOMERULAR FILTRATION RATE > 60.0 (>32); GLUCOSE, FASTING 107 MG/DL (70-100); SODIUM LEVEL 138 MEQ/L (136-145)
[2019-02-21] MEDS: carBAMazepine XR 200 MG TAB PO SCH ×2 (08:04→22:47)
[2019-02-21] MEDS: PRIMIDONE 250 MG TAB PO SCH ×2 (08:04→22:47)
[2019-02-21] MEDS: OMEPRAZOLE 20 MG CAP PO SCH ×2 (08:05→22:46)
[2019-02-21] MEDS: lisinopriL 10 MG TAB PO SCH (08:05)
[2019-02-21] MEDS: lamoTRIgine 100MG TAB PO SCH (08:05)
[2019-02-21] MEDS: DOCUSATE SODIUM 100 MG CAP PO SCH ×2 (08:05→22:47)
--- NOTE | 2019-02-21 08:05 | REP ---
Clinical: Trauma. Femur fracture. Technique: AP, lateral, bilateral oblique views of the right knee. Findings: Age-related osteopenia and degenerative changes are appreciated. There is an oblique fracture of the distal femoral metadiaphysis. Overlying soft tissue swelling noted. Impression: Distal femur fracture. Advanced osteopenia and arthritic changes to the knee. Electronically Signed by Shivam Pérez MD 02/21/2019 07:56 A
--- NOTE | 2019-02-21 08:06 | REP ---
Clinical: Trauma. Fall. Technique: AP and cross-table lateral views of the right femur. Findings: There is a displaced oblique fracture of the distal femoral metadiaphysis with overlying soft tissue swelling. Age-related osteopenia and advanced degenerative changes to the knee noted. Impression: Distal femoral shaft fracture. Osteopenia and degenerative changes to the knee. Electronically Signed by Shivam Pérez MD 02/21/2019 07:57 A
--- NOTE | 2019-02-21 08:09 | REP ---
Clinical: Trauma. Fall. . Comparison: 12/20/2018 . Findings: The mediastinum and cardiac silhouette are stable and within normal limits for portable technique. Stable cardiomegaly. The lung galvin are clear without acute consolidation, effusion, or pneumothorax. Skeletal structures are intact. Impression: No acute cardiopulmonary process appreciated. Electronically Signed by Shivam Pérez MD 02/21/2019 08:00 A
--- NOTE | 2019-02-21 08:09 | REP ---
Clinical: Trauma. Fall. Technique: Frontal view of the pelvis with neutral and frog lateral views of the right hip. Findings: Age-related osteopenia and arthritic degenerative changes are appreciated along with prior left hip replacement. No obvious acute fracture or dislocation identified. Impression: No acute fracture dislocation. Electronically Signed by Shivam Pérez MD 02/21/2019 08:01 A
--- NOTE | 2019-02-21 08:41 | ECGEPIP ---
[facility] - ED Test Date: 2019-02-21 Pat Name: TERRIE FONSECA Department: Room: [place] [address] Gender: Female Senior Research Project Manager: MADELEINE : 1940 Requested By: RAQUEL Parker Order Number: [id number] Reading MD: Richard Mckeon Measurements Intervals [place] Rate: 88 P: 45 OR: 213 QRS: -51 QRSD: 81 T: 38 QT: 361 QTc: 437 Interpretive Statements SINUS RHYTHM WITH FIRST DEGREE AV BLOCK POSSIBLE RIGHT VENTRICULAR CONDUCTION DELAY INFERIOR MYOCARDIAL INFARCTION, PROBABLY OLD WITH POSTERIOR EXTENSION SIMILAR TO 06/18/18 Electronically Signed on 02-21-2019 8:40:46 EST by Richard Mckeon
[2019-02-21] MEDS ORDERED: ASPIRIN 325 MG TAB PO SCH (09:00)
[2019-02-21] MEDS ORDERED: HEPARIN SOD (PORCINE) 5000 UNITS/ML VIAL SC SCH (09:00)
--- NOTE | 2019-02-21 10:47 | IPNPDOC ---
Date Seen The patient was seen on 02/21/19. Progress Note SUBJECTIVE: Patient was seen and examined this morning laying comfortably in bed. She states she fell while trying to get out of bed while in [place] with her . She states she still has some pain in the right leg is worse when she moves it. She agrees to proceed with surgical intervention today. She has no additional questions. OBJECTIVE PHYSICAL EXAMINATION: VITAL SIGNS: Please see below. GENERAL: Alert, comfortable, in no acute distress HEENT: Normocephalic, atraumatic, PERRLA, EOMI, moist mucous membranes NECK: Supple, trachea midline, no lymphadenopathy, no JVD noted CARDIOVASCULAR: Regular rate and rhythm, normal S1 and S2. No murmurs, rubs, or gallops RESPIRATORY: Clear to auscultation bilaterally with equal air entry bilaterally. No wheezing, rhonchi, or rales. ABDOMEN: Obese, soft, nontender, nondistended, bowel sounds present. EXTREMITIES: Nonpitting swelling in the right leg compared to the left. No cyanosis. Pulses 2/4 in bilateral upper and lower extremities NEUROLOGIC: Alert and oriented [address], not oriented to time. Cranial nerves 2-12 grossly intact. No focal deficits appreciated PSYCHIATRIC: Mood and affect appropriate LABORATORY DATA, IMAGING STUDIES, MICROBIOLOGY: Please see below. ASSESSMENT AND PLAN: This is a 78-year-old female with [facility] for surgical intervention for right distal femur fracture after a mechanical fall #Right femoral fracture. Orthopedic surgery consult that, plan for surgical procedure this afternoon Continue with pain management, IV fluids while NPO PT/OT after surgery. #Seizure disorder. Continue home Lamictal, Mysoline, Tegretol #HTN -continue home lisinopril #GERD Continue home omeprazole DVT Prophylaxis: On hold for surgery, continue with heparin postoperatively DISPOSITION: pending surgical intervention ATTENDING NOTE I have personally evaluated and examined the patient. Discussed with residents/student regarding plan of care and agree with the above assessment and plan. VS, I&O, 24H, Fishbone Vital Signs/I&O Vital Signs Date Time Temp Pulse Resp B/P (MAP) Pulse Ox O2 Delivery O2 Flow Rate FiO2 02/21/19 08:20 18 02/21/19 08:05 169/84 02/21/19 05:50 97.7 96 97 Room Air I&O- Last 24 Hours up to 6 AM 02/21/19 05:59 Intake Total 0 ml Balance 0 ml Laboratory Data 24H LABS Laboratory Tests 2 02/21/19 01:45: Immature Granulocyte % (Auto) 0.3, Neutrophils (%) (Auto) 78.2H, Lymphocytes (%) (Auto) 15.5L, Monocytes (%) (Auto) 5.5H, Eosinophils (%) (Auto) 0.3, Basophils (%) (Auto) 0.2, Neutrophils # (Auto) 7.3, Lymphocytes # (Auto) 1.4L, Monocytes # (Auto) 0.5, Eosinophils # (Auto) 0.0, Basophils # (Auto) 0.0, Nucleated Red Blood Cells % (auto) 0.0, Anion Gap 7L, Glomerular Filtration Rate > 60.0, Calcium Level 7.4L, Total Creatine Kinase 44, Creatine Kinase MB < 1.0, Creatine Kinase MB Relative Index 2.27, Troponin I < 0.02 02/21/19 01:46: Prothrombin Time 13.5, Prothromb Time International Ratio 1.06 02/21/19 06:03: Nucleated Red Blood Cells % (auto) 0.0, Anion Gap 6L, Glomerular Filtration Rate > 60.0, Calcium Level 8.7#L CBC/BMP Laboratory Tests 02/21/19 01:45 02/21/19 06:03 HIRA RUBIN D.O. Feb 21, 2019 10:47 FRANKO BUTLER MD Feb 21, 2019 16:39
--- NOTE | 2019-02-21 11:33 | CR ---
DATE OF CONSULTATION: 02/21/2019 CHIEF COMPLAINT: Right knee pain. The patient presents to the ER today after having a fall from her bed and she immediately appreciated 10 out of 10 sharp knee pain with inability to ambulate that was made worse with any sort of movement and alleviated with rest, immobilization and pain medications. She denies any pain elsewhere. Denies any fevers, chills, nausea or vomiting. A complete 10 system review was significant for the pertinent positives and negatives in the HPI. All other systems were negative. HOME MEDICATIONS: - aspirin - carbamazepine - lamotrigine - lisinopril - omeprazole - primidone - ranitidine - senna ALLERGIES: 1. ALENDRONATE. 2. CALCITONIN. 3. Hay fever. PAST MEDICAL HISTORY: Seizures. Cholesterol. Gastroesophageal reflux disease (GERD). Esophageal dysmotility. Positive TYLER. Hyponatremia. Vitamin D deficiency. Osteoporosis. 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 Multinodular goiter. Neuropathy in her legs. B12 deficiency. SURGICAL HISTORY: Left hip fracture. Arm fracture. Finger surgery right hand. REVIEW OF SYSTEMS: Complete 10 system review was significant for the pertinent positives and negatives in the HPI. All other systems were negative. PHYSICAL EXAMINATION: Patient is awake, alert, oriented, well dressed. Appropriate affect. Breathing in room air. Normocephalic, atraumatic. Bilateral upper extremity examination: No tenderness to palpation. Full active range of motion of the shoulders, wrists, and elbows without any pain or discomfort. Skin is intact. Radial pulse 2+, regular rate. Positive anterior interosseous nerve (AIN), and posterior interosseous nerve (PIN), and ulnar motor nerve functions. Sensation intact to light touch, superficial sensory branches of the radial nerve, median nerve, and ulnar nerve. Left lower extremity: Negative logroll. No tenderness to palpation. Positive extensor hallucis longus (EHL), tibialis and gastroc motor function. Sensation intact to light touch in superficial, perineal, deep perineal. Skin is intact. Previous incision is well healed. Posterior tibial pulse 2+, regular rate. Right lower extremity: Tenderness to palpation about the knee with significant swelling. Skin is intact. Posterior tibial pulse 2+, regular rate. Sensation intact to light touch in superficial peroneal, deep peroneal, sural, saphenous, and tibial distributions. Positive extensor hallucis longus (EHL), patella, tibia and gastroc motor function. IMAGING: Reviewed, demonstrating a comminuted distal femur and femoral shaft fracture. IMPRESSION/PLAN: I discussed with the patient that the diagnosis was right femur shaft and distal femur fracture. I discussed with the patient that this is something that I recommend operative fixation in order to improve her mobilization and also to manage pain control, and unfortunately dislocating fractures have a tendency to migrate and become open fractures. This would help decrease those risks. We discussed the risks and benefits of this and consent was obtained both by the patient and verbally by the over the phone for intramedullary rodding of the right femur. Risks and benefits discussed including, but not limited to, infection, damage to surrounding structures, malunion, nonunion, incomplete relief. The patient will be bedrest. We appreciate admission to medicine service and clearance for surgery and work on pain control.
[2019-02-21] MEDS: PRIMIDONE 50 MG TAB PO SCH (11:49)
[2019-02-21] MEDS ORDERED: PROPOFOL 200 MG/20 ML VIAL As Ordered ONE (13:24)
[2019-02-21] MEDS ORDERED: LIDOCAINE 2% INJ 100 MG/5 ML SDV (FOR ANES.) As Ordered ONE (13:24)
[2019-02-21] MEDS ORDERED: MIDAZOLAM INJ 2 MG/2 ML VIAL (J2250) As Ordered ONE (13:25)
[2019-02-21] MEDS ORDERED: ONDANSETRON 4MG/2ML VIAL (J2405) As Ordered ONE (13:25)
[2019-02-21] MEDS ORDERED: fentaNYL 100 MCG/2 ML INJECTION (J3010) As Ordered ONE ×2 (13:25→15:19)
[2019-02-21] MEDS ORDERED: ROCURONIUM BROMIDE 50 MG/5 ML VIAL As Ordered ONE ×2 (13:51→15:45)
[2019-02-21] MEDS ORDERED: dexameTHASONE 4 MG/ML 1ML VIAL (J1100) As Ordered ONE (13:52)
[2019-02-21] MEDS ORDERED: ceFAZolin 2 GM/D5W 50 ML IV BAG (J0690 PER 500MG) As Ordered ONE (14:36)
[2019-02-21] MEDS ORDERED: SUGAMMADEX SODIUM 500 MG/5 ML VIAL (BRIDION) As Ordered ONE (15:13)
[2019-02-21] MEDS ORDERED: ACETAMINOPHEN 1000MG 100ML IV BTL (OFIRMEV) (J0131 PER 10MG) As Ordered ONE (15:13)
--- NOTE | 2019-02-21 17:43 | REP ---
Clinical: Status post open reduction and fixation. Technique: Intraoperative fluoroscopic imaging using portable C-arm technique. Findings: Satisfactory open reduction and fixation for distal femoral shaft fracture. Total fluoroscopic time 4 minutes 26 seconds. Impression: Satisfactory open reduction and fixation. Electronically Signed by Shivam Pérez MD 02/21/2019 05:35 P
[2019-02-21] MEDS ORDERED: oxyCODONE 5MG TAB PO PRN (17:45)
[2019-02-21] MEDS ORDERED: fentaNYL 100 MCG/2 ML INJECTION (J3010) IV PRN (17:45)
[2019-02-21] MEDS ORDERED: ONDANSETRON 4MG/2ML VIAL (J2405) IV PRN (17:45)
[2019-02-21] MEDS ORDERED: LR 1,000 ML IV SCH (17:45)
--- NOTE | 2019-02-21 18:29 | RO ---
DATE OF PROCEDURE: 02/21/2019 PREOPERATIVE DIAGNOSIS: Right distal femur shaft fracture. POSTOPERATIVE DIAGNOSIS: Right distal femur shaft fracture. PROCEDURE: Right intramedullary nailing of right femur shaft with distal femur component. SURGEON: Dr. Giovany Csoby ANESTHESIA: General PREOPERATIVE ANTIBIOTICS: 2 grams Ancef. COMPLICATIONS: None. BLOOD LOSS: 250 mL. PROMOTION WRITER: Dr. Mukul Green who was essential during dacosta retraction in portions of the procedure. INDICATIONS: This is an 78-year-old female who suffered an unstable right distal femur shaft fracture. We discussed with the family about these fractures. Patients not necessarily ambulatory due have an unfortunate consequence os eroding through the skin if treated nonoperatively along with it is a comfort care measure. Patient and family express understanding and agree with the plan and wish to proceed. DESCRIPTION: Patient was brought to the OR in supine position under general anesthesia. At which point the right leg was prepped and draped and draped in the usual fashion. We had time out confirming site, side and surgery and once this was done we placed the patient on the radiolucent triangle and used traction and reduction to obtain an acceptable reduction. We then made a longitudinal incision medial to the medial patella and tendon. We then used the drill tip guidewire confirmed on AP and lateral for the start point. Once we were happy with this we used the entry reamer and then we passed the guidewire all the way down to the greater trochanter. We wanted to end the nail just proximal to the lesser troch which was approximately 380 mm. We then while holding reduction, sequentially reamed up to 12.5 and did a size 11 nail. Once the nail was passed we used the lateral cross block with the jig. We then placed another cross block through the helical blade slot. We also placed two additional blocking screws to help get metaphyseal fixation more distally. We then held reduction of the nail in the shaft and locked the shaft proximally with [id number] technique with two side screws and confirmed these on AP and lateral. Once we were happy with this we assessed the fracture reduction and we were happy with this as well. We took final films on AP and lateral throughout the entire femur. We felt that we had adequate reduction in fixation at which point we irrigated all the wounds and closed the patella tendon and retinaculum with 0 Vicryl and subcutaneous tissue throughout with 2-0 Vicryl and marge for skin. Patient was dressed with gauze and Tegaderm. Patient was awakened and taken to postanesthesia care unit in stable condition. POSTOPERATIVE PLAN: The patient will be touch down weightbearing right lower extremity and antibiotic prophylaxis and start DVT prophylaxis. Appreciate medicine management of pain and placement.
[2019-02-21] MEDS: SENNA 8.6 MG TAB (SENOKOT) PO SCH (22:46)
[2019-02-21] MEDS: ceFAZolin SOD 1 GM in D5W MINI-BAG PLUS 50 ML IV SCH (22:47)
[2019-02-22] MEDS: NS 1,000 ML IV SCH ×3 (03:51→17:33)
[2019-02-22 05:00] VITALS: BP 136/74
[2019-02-22] MEDS: ceFAZolin SOD 1 GM in D5W MINI-BAG PLUS 50 ML IV SCH ×2 (06:49→15:05)
[2019-02-22] MEDS: ACETAMINOPHEN 500 MG TAB PO SCH ×3 (06:50→21:45)
[2019-02-22 07:02] LABS: HEMATOCRIT 26.2 % (36.0-47.0); HEMOGLOBIN 8.5 g/dl (12.0-15.5); MEAN CORPUSCULAR HEMOGLOBIN 31.4 pg (27.0-33.0); MEAN CORPUSCULAR HGB CONC 32.4 g/dl (32.0-36.5); MEAN CORPUSCULAR VOLUME 96.7 fl (80.0-96.0); PLATELET COUNT, AUTOMATED 222 10^3/uL (150-450); RED BLOOD COUNT 2.71 10^6/uL (4.00-5.40); WHITE BLOOD COUNT 9.1 10^3/uL (4.0-10.0)
[2019-02-22 07:15] LABS: BLOOD UREA NITROGEN 13 MG/DL (7-18); CALCIUM LEVEL 8.1 MG/DL (8.8-10.2); CARBON DIOXIDE LEVEL 26 MEQ/L (21-32); CHLORIDE LEVEL 104 MEQ/L (98-107); CREATININE FOR GFR 0.72 MG/DL (0.55-1.30); GLOMERULAR FILTRATION RATE > 60.0 (>32); GLUCOSE, FASTING 98 MG/DL (70-100); MAGNESIUM LEVEL 1.9 MG/DL (1.8-2.4); POTASSIUM SERUM 4.2 MEQ/L (3.5-5.1); SODIUM LEVEL 138 MEQ/L (136-145)
[2019-02-22] MEDS: DOCUSATE SODIUM 100 MG CAP PO SCH ×2 (09:18→21:44)
[2019-02-22] MEDS: lisinopriL 10 MG TAB PO SCH (09:18)
[2019-02-22] MEDS: lamoTRIgine 100MG TAB PO SCH (09:18)
[2019-02-22] MEDS: OMEPRAZOLE 20 MG CAP PO SCH ×2 (09:18→21:44)
[2019-02-22] MEDS: PRIMIDONE 250 MG TAB PO SCH ×2 (09:19→21:44)
[2019-02-22] MEDS: carBAMazepine XR 200 MG TAB PO SCH ×2 (09:19→21:44)
--- NOTE | 2019-02-22 09:22 | IPN ---
DATE: 02/22/2019 CHIEF COMPLAINT: Postoperative day 1 right distal femur fracture, retrograde nail. HISTORY OF PRESENT ILLNESS: This 78-year-old female seen today in the [facility] [address] for postop day 1 distal femur fracture open reduction fixation. She is doing well. She has no concerns or complaints. PHYSICAL EXAM: This is a well-appearing 78-year-old female. She is alert and oriented times three. Mood and affect pleasant and positive. She is lying supine on the bed. Vital signs stable, 3 liters nasal prongs. No chest pain, shortness of breath. Dressings distally have some moderate strike through. Thigh compartments are soft. She is able to wiggle her toes, dorsiflex, plantar flex. Foot is warm and well perfused with good pedal pulses. Normal sensation throughout the foot. Laboratory examination reveals hemoglobin 8.5 down from 10.1. ASSESSMENT/PLAN: This 78-year-old female is touchdown weightbearing. She is on Xarelto 10 mg p.o. once daily for VTE prophylaxis. We will see how things go with physical therapy and Lee Ann her nurse practitioner will aid in discharge planning and management.
--- NOTE | 2019-02-22 10:04 | IPNPDOC ---
Date Seen The patient was seen on 02/22/19. Progress Note SUBJECTIVE: Patient was seen and examined this morning laying comfortably in bed. She states she is feeling well this morning and denies any pain in her right leg. She says she just finished breakfast without any nausea or vomiting. She denies any issues or complaints today. OBJECTIVE PHYSICAL EXAMINATION: VITAL SIGNS: Please see below. GENERAL: Alert, comfortable, in no acute distress HEENT: Normocephalic, atraumatic, moist mucous membranes NECK: Supple, trachea midline, no lymphadenopathy, no JVD noted CARDIOVASCULAR: Regular rate and rhythm, normal S1 and S2. No murmurs, rubs, or gallops RESPIRATORY: Clear to auscultation bilaterally with equal air entry bilaterally. No wheezing, rhonchi, or rales. ABDOMEN: Obese, soft, nontender, nondistended, bowel sounds present. EXTREMITIES: Nonpitting swelling in the right leg compared to the left. No cyanosis. Pulses 2/4 in bilateral upper and lower extremities NEUROLOGIC: Alert and oriented [address], not oriented to time. Cranial nerves 2-12 grossly intact. No focal deficits appreciated PSYCHIATRIC: Mood and affect appropriate LABORATORY DATA, IMAGING STUDIES, MICROBIOLOGY: Please see below. ASSESSMENT AND PLAN: This is a 78-year-old female with [facility] for surgical intervention for right distal femur fracture after a mechanical fall #Right femoral fracture. POD#1 right distal femur fracture repair with retrograde nail Continue with pain management tolerating regular diet - PT/OT evaluations pending #Seizure disorder. Continue home Lamictal, Mysoline, Tegretol #HTN -continue home lisinopril #GERD Continue home omeprazole DVT Prophylaxis: Xarelto 10mg daily DISPOSITION: pending PT/OT clearance ATTENDING NOTE I have personally evaluated and examined the patient. Discussed with resident/student regarding plan of care and agree with the above assessment and plan. VS, I&O, 24H, Fishbone Vital Signs/I&O Vital Signs Date Time Temp Pulse Resp B/P (MAP) Pulse Ox O2 Delivery O2 Flow Rate FiO2 02/22/19 09:18 136/74 02/22/19 05:00 97.3 94 18 98 Nasal Cannula 3.0 I&O- Last 24 Hours up to 6 AM 02/22/19 06:00 Intake Total 1850 ml Output Total 0 ml Balance 1850 ml Laboratory Data 24H LABS Laboratory Tests 2 02/22/19 06:06: Nucleated Red Blood Cells % (auto) 0.0, Anion Gap 8, Glomerular Filtration Rate > 60.0, Calcium Level 8.1L, Magnesium Level 1.9 CBC/BMP Laboratory Tests 02/22/19 06:06 HIRA RUBIN D.O. Feb 22, 2019 10:04 FRANKO BUTLER MD Feb 22, 2019 14:24
[2019-02-22] MEDS: PRIMIDONE 50 MG TAB PO SCH (12:01)
[2019-02-22 14:00] VITALS: BP 124/69
[2019-02-22] MEDS: RIVAROXABAN 10 MG TAB (XARELTO) PO SCH (17:33)
[2019-02-22] MEDS: SENNA 8.6 MG TAB (SENOKOT) PO SCH (21:44)
[2019-02-22 22:00] VITALS: BP 124/68
[2019-02-23] MEDS: NS 1,000 ML IV SCH ×3 (01:17→21:23)
[2019-02-23] MEDS: ACETAMINOPHEN 500 MG TAB PO SCH ×3 (05:12→21:23)
[2019-02-23 06:00] VITALS: BP 125/69
[2019-02-23] MEDS ORDERED: TRAM50TA2 PO (07:35)
[2019-02-23] MEDS ORDERED: XARE10TA PO (07:35)
[2019-02-23 07:37] LABS: HEMATOCRIT 26.2 % (36.0-47.0); HEMOGLOBIN 8.1 g/dl (12.0-15.5); MEAN CORPUSCULAR HEMOGLOBIN 30.3 pg (27.0-33.0); MEAN CORPUSCULAR HGB CONC 30.9 g/dl (32.0-36.5); MEAN CORPUSCULAR VOLUME 98.1 fl (80.0-96.0); PLATELET COUNT, AUTOMATED 219 10^3/uL (150-450); RED BLOOD COUNT 2.67 10^6/uL (4.00-5.40); WHITE BLOOD COUNT 6.7 10^3/uL (4.0-10.0)
[2019-02-23 07:55] LABS: BLOOD UREA NITROGEN 12 MG/DL (7-18); CALCIUM LEVEL 8.3 MG/DL (8.8-10.2); CARBON DIOXIDE LEVEL 24 MEQ/L (21-32); CHLORIDE LEVEL 108 MEQ/L (98-107); CREATININE FOR GFR 0.63 MG/DL (0.55-1.30); GLOMERULAR FILTRATION RATE > 60.0 (>32); GLUCOSE, FASTING 121 MG/DL (70-100); POTASSIUM SERUM 3.9 MEQ/L (3.5-5.1); SODIUM LEVEL 139 MEQ/L (136-145)
[2019-02-23] MEDS: PRIMIDONE 250 MG TAB PO SCH ×2 (08:55→21:21)
[2019-02-23] MEDS: DOCUSATE SODIUM 100 MG CAP PO SCH ×2 (08:55→21:21)
[2019-02-23] MEDS: traMADol 50 MG TAB PO PRN ×2 (08:55→17:05)
[2019-02-23] MEDS: lisinopriL 10 MG TAB PO SCH (08:55)
[2019-02-23] MEDS: OMEPRAZOLE 20 MG CAP PO SCH ×2 (08:55→21:23)
[2019-02-23] MEDS: lamoTRIgine 100MG TAB PO SCH (08:55)
[2019-02-23] MEDS: carBAMazepine XR 200 MG TAB PO SCH ×2 (08:55→21:23)
--- NOTE | 2019-02-23 09:28 | IPNPDOC ---
Date Seen The patient was seen on 02/23/19. Progress Note SUBJECTIVE: Patient was seen and examined this morning laying comfortably in bed. She states she continues to feel well and her right leg pain is well controlled. She denies any new issues. OBJECTIVE PHYSICAL EXAMINATION: VITAL SIGNS: Please see below. GENERAL: Alert, comfortable, in no acute distress HEENT: Normocephalic, atraumatic, moist mucous membranes NECK: Supple, trachea midline, no lymphadenopathy, no JVD noted CARDIOVASCULAR: Regular rate and rhythm, normal S1 and S2. No murmurs, rubs, or gallops RESPIRATORY: Clear to auscultation bilaterally with equal air entry bilaterally. No wheezing, rhonchi, or rales. ABDOMEN: Obese, soft, nontender, nondistended, bowel sounds present. EXTREMITIES: Nonpitting swelling in the right leg compared to the left. No cyanosis. Pulses 2/4 in bilateral upper and lower extremities NEUROLOGIC: Alert and oriented [address], not oriented to time. No focal deficits appreciated PSYCHIATRIC: Mood and affect appropriate LABORATORY DATA, IMAGING STUDIES, MICROBIOLOGY: Please see below. ASSESSMENT AND PLAN: This is a 78-year-old female with [facility] for surgical intervention for right distal femur fracture after a mechanical fall #Right femoral fracture. POD#2 right distal femur fracture repair with retrograde nail Continue with pain management tolerating regular diet - PT/OT evaluation showed pt is at her baseline function #Seizure disorder. Continue home Lamictal, Mysoline, Tegretol #HTN -continue home lisinopril #GERD Continue home omeprazole DVT Prophylaxis: Xarelto 10mg daily postoperatively per ortho DISPOSITION: likely discharge back to [facility] tomorrow ATTENDING NOTE I have personally evaluated and examined the patient. Discussed with r esident/student regarding plan of care and agree with the above assessment and plan. VS, I&O, 24H, Fishbone Vital Signs/I&O Vital Signs Date Time Temp Pulse Resp B/P (MAP) Pulse Ox O2 Delivery O2 Flow Rate FiO2 02/23/19 09:25 18 02/23/19 08:55 Room Air 02/23/19 08:55 125/69 02/23/19 06:00 97.5 94 97 02/22/19 22:00 3.0 I&O- Last 24 Hours up to 6 AM 02/23/19 06:00 Intake Total 1170 ml Balance 1170 ml Laboratory Data 24H LABS Laboratory Tests 2 02/23/19 07:23: Nucleated Red Blood Cells % (auto) 0.0, Anion Gap 7L, Glomerular Filtration Rate > 60.0, Calcium Level 8.3L CBC/BMP Laboratory Tests 02/23/19 07:23 HIRA RUBIN D.O. Feb 23, 2019 09:28 FRANKO BUTLER MD Feb 23, 2019 10:40
[2019-02-23] MEDS: PRIMIDONE 50 MG TAB PO SCH (13:02)
[2019-02-23 14:00] VITALS: BP 127/72
[2019-02-23] MEDS: RIVAROXABAN 10 MG TAB (XARELTO) PO SCH (17:01)
[2019-02-23 20:14] VITALS: BP 127/78
[2019-02-23] MEDS: SENNA 8.6 MG TAB (SENOKOT) PO SCH (21:21)
[2019-02-24] MEDS: ACETAMINOPHEN 500 MG TAB PO SCH (05:02)
[2019-02-24 05:33] VITALS: BP 156/82
[2019-02-24 08:12] LABS: HEMATOCRIT 24.1 % (36.0-47.0); HEMOGLOBIN 7.6 g/dl (12.0-15.5); MEAN CORPUSCULAR HEMOGLOBIN 30.6 pg (27.0-33.0); MEAN CORPUSCULAR HGB CONC 31.5 g/dl (32.0-36.5); MEAN CORPUSCULAR VOLUME 97.2 fl (80.0-96.0); PLATELET COUNT, AUTOMATED 253 10^3/uL (150-450); RED BLOOD COUNT 2.48 10^6/uL (4.00-5.40)
[2019-02-24] MEDS: PRIMIDONE 250 MG TAB PO SCH (08:19)
[2019-02-24 08:20] VITALS: BP 156/82
[2019-02-24] MEDS: lamoTRIgine 100MG TAB PO SCH (08:20)
[2019-02-24] MEDS: NS 1,000 ML IV SCH (08:20)
[2019-02-24] MEDS: DOCUSATE SODIUM 100 MG CAP PO SCH (08:20)
[2019-02-24] MEDS: carBAMazepine XR 200 MG TAB PO SCH (08:20)
[2019-02-24] MEDS: OMEPRAZOLE 20 MG CAP PO SCH (08:20)
[2019-02-24] MEDS: traMADol 50 MG TAB PO PRN (08:20)
[2019-02-24] MEDS: lisinopriL 10 MG TAB PO SCH (08:20)
[2019-02-24 08:30] LABS: BLOOD UREA NITROGEN 8 MG/DL (7-18); CALCIUM LEVEL 8.1 MG/DL (8.8-10.2); CARBON DIOXIDE LEVEL 24 MEQ/L (21-32); CHLORIDE LEVEL 113 MEQ/L (98-107); CREATININE FOR GFR 0.63 MG/DL (0.55-1.30); GLOMERULAR FILTRATION RATE > 60.0 (>32); GLUCOSE, FASTING 94 MG/DL (70-100); POTASSIUM SERUM 3.7 MEQ/L (3.5-5.1); SODIUM LEVEL 143 MEQ/L (136-145)
--- NOTE | 2019-02-24 10:28 | DS.PDOC ---
Discharge Summary General Date of Admission Feb 21, 2019 at 01:32 Date of Discharge 02/24/2019 Attending Physician: FRANKO BUTLER MD Discharge Summary PROCEDURES PERFORMED DURING STAY: None. ADMITTING DIAGNOSES: 1. Right distal femur fracture. 2. Seizure disorder. 3. Hypertension. 4. GERD DISCHARGE DIAGNOSES: 1. Right distal femur fracture. 2. Seizure disorder. 3. Hypertension. 4. GERD COMPLICATIONS/CHIEF COMPLAINT: Right Femoral Fracture. HISTORY OF PRESENT ILLNESS: 78 years old female with past medical history of hypertension, dementia, epilepsy, hyperlipidemia presented hospital after fall. Patient today fell down from the bed and broke her right distal femur. In emerge ncy room patient was found to have on x-ray displaced fracture of the right distal femur. Orthopedic surgeon recommended to admit patient for possible surgical intervention. Patient stated that she has right lower extremity pain 5 out of 10. Patient denies fever, chills, nausea, palpitations, vomiting, shortness of breath, diarrhea or dysuria. In the emergency department, imaging revealed a right distal femur fracture. HOSPITAL COURSE: The patient was admitted to the hospital and orthopedic surgery was consult to consider surgical intervention. The orthopedic suggested proceeding with operative fixation in order to improve mobilization, manage pain control, and prevent migration of the fracture to an open fracture. The patient and her agreed to move forward with open reduction fixation. The patient has had a good surgical candidate and was cleared medically for surgery. The procedure was successful and the patient tolerated it well. Post-operatively, her pain was well controlled. She was started on Xarelto for DVT prophylaxis per orthopedic surgery. She was evaluated by physical therapy and occupational therapy who declared she was at her baseline functioning, as she uses a Jennifer lift and is deep and for all her ADLs at baseline. The patient was noted to have a downtrend in her H/H which was thought to be dilutional as she remained on IV fluids during her admission and there was no clear source of bleeding post- operatively. This can be followed up on in the outpatient setting. On the day of discharge, the patient was found to be stable and safe for discharge back to [facility] assisted living. DISCHARGE MEDICATIONS: Please see below. ALLERGIES: Please see below. PHYSICAL EXAMINATION ON DISCHARGE: VITAL SIGNS: Please see below. GENERAL: Alert, comfortable, in no acute distress HEENT: Normocephalic, atraumatic, moist mucous membranes NECK: Supple, trachea midline, no lymphadenopathy, no JVD noted CARDIOVASCULAR: Regular rate and rhythm, normal S1 and S2. No murmurs, rubs, or gallops RESPIRATORY: Clear to auscultation bilaterally with equal air entry bilaterally. No wheezing, rhonchi, or rales. ABDOMEN: Obese, soft, nontender, nondistended, bowel sounds present. EXTREMITIES: Nonpitting swelling in the right leg compared to the left. No cyanosis. Pulses 2/4 in bilateral upper and lower extremities SKIN: Warm, pink, dry NEUROLOGIC: Alert and oriented [address], not oriented to time. No focal deficits appreciated PSYCHIATRIC: Mood and affect appropriate LABORATORY DATA: Please see below. IMAGING: (impression per radiologist report) Hip/pelvis XR 02/21: No acute fracture dislocation. Femur XR 02/21: Distal femoral shaft fracture. Osteopenia and degenerative changes to the knee. Chest XR 02/21: No acute cardiopulmonary process appreciated. Knee XR 02/21: Distal femur fracture. Advanced osteopenia and arthritic changes to the knee. Extremity CT 02/21: Acute distracted comminuted distal right femoral shaft fracture. Severe osteoarthritis in the right knee. Small knee joint effusion. Intra-articular loose bodies. Fluoroscopy guidance 02/21: Satisfactory open reduction and fixation. PROGNOSIS: Fair ACTIVITY: As tolerated. DIET: As tolerated. DISCHARGE PLAN: Return to [facility], at baseline functioning DISPOSITION: [facility] Assisted Living DISCHARGE INSTRUCTIONS: 1. Follow-up with your PCP in 7-10 days 2. Follow up with Orthopedic surgery as scheduled 3. If your symptoms return or your condition worsens, please call your PCP or return to the ED for further evaluation. ITEMS TO FOLLOWUP ON ON OUTPATIENT: 1. Right distal femur fracture s/p internal repair 2. Downtrending H/H during admission, consider f/u CBC to make sure this has remained stable 3. Osteopenia seen on xray films DISCHARGE CONDITION: Stable. TIME SPENT ON DISCHARGE: 35 minutes. I have personally evaluated and examined the patient. Discussed with resident/student regarding plan of care and agree with the above assessment and plan. Vital Signs/I&Os Vital Signs Date Time Temp Pulse Resp B/P (MAP) Pulse Ox O2 Delivery O2 Flow Rate FiO2 02/24/19 08:50 18 Room Air 02/24/19 08:20 156/82 02/24/19 05:33 98.3 102 94 02/22/19 22:00 3.0 I&O- Last 24 Hours up to 6 AM 02/24/19 06:00 Intake Total 3750 ml Balance 3750 ml Laboratory Data Labs 24H Laboratory Tests 2 02/24/19 07:46: Nucleated Red Blood Cells % (auto) 0.4H, Anion Gap 6L, Glomerular Filtration Rate > 60.0, Calcium Level 8.1L CBC/BMP Laboratory Tests 02/24/19 07:46 Discharge Medications Scheduled Acetaminophen (Tylenol Extra Strength) 500 Mg Tablet, 1,000 MG PO BID, (Reported) Aspirin (Aspirin) 325 Mg Tablet, 325 MG PO DAILY, (Reported) Calcium Carbonate/Vitamin D3 (Calcium 250-Vit D3 125 Tablet) 1 Each Tablet, 1 TAB PO BID, (Reported) Carbamazepine (Carbamazepine ER) 200 Mg Tab.er.12h, 200 MG PO BID, (Reported) Docusate Sodium (Colace) 100 Mg Capsule, 100 MG PO BID, (Reported) Lamotrigine (Lamictal) 100 Mg Tablet, 100 MG PO DAILY, (Reported) Lisinopril (Lisinopril) 10 Mg Tablet, 10 MG PO DAILY, (Reported) Omeprazole (Omeprazole) 20 Mg Capsule.dr, 20 MG PO BID, (Reported) Primidone (Primidone) 250 Mg Tablet, 250 MG PO BID, (Reported) Primidone (Primidone) 50 Mg Tablet, 50 MG PO DAILY, (Reported) TAKES AT NOON Ranitidine HCl (Ranitidine HCl) 150 Mg Tablet, 1 TAB PO BID, (Reported) Rivaroxaban (Xarelto) 10 Mg Tablet, 10 MG PO DAILY Senna (Senna Lax) 8.6 Mg Tablet, 2 TAB PO QHS, (Reported) Scheduled PRN Acetaminophen (Tylenol) 325 Mg Tablet, 650 MG PO QID PRN for PAIN / FEVER, (Reported) Bisacodyl (Dulcolax) 10 Mg Supp.rect, 10 MG SD DAILY PRN for CONSTIPATION, (R eported) Milk Of Magnesia (Milk of Magnesia) 2,400 Mg/10 Ml Oral.susp, 10 ML PO DAILY PRN for CONSTIPATION, (Reported) Sodium Phosphate,[place]-Dibasic (Enema) 133 Ml Enema, 1 RAYNA SD DAILY PRN for CONSTIPATION, (Reported) Tramadol HCl (Tramadol HCl) 50 Mg Tablet, 1-2 TAB PO Q4H PRN for PAIN Allergies Coded Allergies: alendronate sodium (Verified Allergy, Intermediate, DYSPHAGIA SECONDARY TO A SCHATZKI'S RING, 02/20/19) calcitonin (Verified Allergy, Mild, HEADACHE, 02/20/19) HAY FEVER (Verified Allergy, Unknown, 02/20/19) HIRA RUBIN D.O. Feb 24, 2019 10:28 FRANKO BUTLER MD Feb 24, 2019 10:49
[2019-02-24] MEDS: PRIMIDONE 50 MG TAB PO SCH (11:31)
== END 2019-02-24 12:45 | DRG 482 ==
LOC: EDBD 23:11 → M ED 23:11 → M ED INP 02-21 01:32 → M MS5PR 02-21 02:45
PROVIDERS: ADMIT Internal Medicine; ATTEND Student in an Organized Health Care Education/Training Program
PROC: 0QS604Z Reposition Right Upper Femur with Internal Fixation Device, Open Approach (ICD-10-PCS; principal; 2019-02-21 14:30)
DX: S72.401A Unspecified fracture of lower end of right femur, initial encounter for closed fracture (principal); G40.909 Epilepsy, unspecified, not intractable, without status epilepticus; K21.9 Gastro-esophageal reflux disease without esophagitis; I10 Essential (primary) hypertension; F03.90 Unspecified dementia, unspecified severity, without behavioral disturbance, psychotic disturbance, mood disturbance, and anxiety; E78.5 Hyperlipidemia, unspecified; Z79.899 Other long term (current) drug therapy; Z79.82 Long term (current) use of aspirin; Z88.8 Allergy status to other drugs, medicaments and biological substances; E53.8 Deficiency of other specified B group vitamins; M81.0 Age-related osteoporosis without current pathological fracture; G62.9 Polyneuropathy, unspecified; E04.1 Nontoxic single thyroid nodule; C44.602 Unspecified malignant neoplasm of skin of right upper limb, including shoulder; E78.00 Pure hypercholesterolemia, unspecified

== ENCOUNTER → 2019-02-28 | Outpatient (REF) ==
[~2019-02-28] MED LIST changes: +PRIM50TA6 PO; +TRAM50TA2 PO; +XARE10TA PO
[2019-02-28 11:46] LABS: HEMATOCRIT 31.2 % (36.0-47.0); HEMOGLOBIN 9.5 g/dl (12.0-15.5); MEAN CORPUSCULAR HEMOGLOBIN 31.1 pg (27.0-33.0); MEAN CORPUSCULAR HGB CONC 30.4 g/dl (32.0-36.5); MEAN CORPUSCULAR VOLUME 102.3 fl (80.0-96.0); PLATELET COUNT, AUTOMATED 421 10^3/uL (150-450); RED BLOOD COUNT 3.05 10^6/uL (4.00-5.40); WHITE BLOOD COUNT 7.5 10^3/uL (4.0-10.0)
[2019-02-28 12:11] LABS: BLOOD UREA NITROGEN 17 MG/DL (7-18); CALCIUM LEVEL 8.8 MG/DL (8.8-10.2); CARBON DIOXIDE LEVEL 26 MEQ/L (21-32); CHLORIDE LEVEL 104 MEQ/L (98-107); CREATININE FOR GFR 0.78 MG/DL (0.55-1.30); GLOMERULAR FILTRATION RATE > 60.0 (>32); GLUCOSE, FASTING 120 MG/DL (70-100); PHENOBARBITAL LEVEL 18.7 UG/ML (15.0-40.0); POTASSIUM SERUM 4.6 MEQ/L (3.5-5.1); SODIUM LEVEL 139 MEQ/L (136-145)
== END ==
PROVIDERS: ATTEND Family Medicine
DX: Z79.899 Other long term (current) drug therapy (principal); R56.9 Unspecified convulsions

== ENCOUNTER → 2019-03-07 | Outpatient (REF) ==
[2019-03-07 15:29] LABS: HEMATOCRIT 33.6 % (36.0-47.0); HEMOGLOBIN 10.3 g/dl (12.0-15.5); MEAN CORPUSCULAR HEMOGLOBIN 31.1 pg (27.0-33.0); MEAN CORPUSCULAR HGB CONC 30.7 g/dl (32.0-36.5); MEAN CORPUSCULAR VOLUME 101.5 fl (80.0-96.0); PLATELET COUNT, AUTOMATED 418 10^3/uL (150-450); RED BLOOD COUNT 3.31 10^6/uL (4.00-5.40); WHITE BLOOD COUNT 6.5 10^3/uL (4.0-10.0)
[2019-03-07 15:55] LABS: CALCIUM LEVEL 8.8 MG/DL (8.8-10.2); CREATININE FOR GFR 0.97 MG/DL (0.55-1.30); GLOMERULAR FILTRATION RATE 58.8 (>32); POTASSIUM SERUM 4.8 MEQ/L (3.5-5.1)
== END ==
PROVIDERS: ATTEND Family Medicine
DX: D64.9 Anemia, unspecified (principal)

== ENCOUNTER → 2019-03-22 | Outpatient (REF) ==
[~2019-03-22] MED LIST changes: -OMEP-172 PO; +OMEP1CAP73 PO
[2019-03-24 14:07] LABS: LAMOTRIGINE (LAMICTAL) None Detected ug/mL (2.0-20.0)
== END ==
PROVIDERS: ATTEND Family Medicine
DX: Z79.899 Other long term (current) drug therapy (principal)

== ENCOUNTER → 2019-04-04 | Outpatient (REF) ==
[2019-04-04 10:11] LABS: HEMOGLOBIN 12.4 g/dl (12.0-15.5); MEAN CORPUSCULAR HEMOGLOBIN 30.2 pg (27.0-33.0); MEAN CORPUSCULAR VOLUME 97.6 fl (80.0-96.0); PLATELET COUNT, AUTOMATED 265 10^3/uL (150-450); WHITE BLOOD COUNT 6.6 10^3/uL (4.0-10.0)
[2019-04-04 10:29] LABS: BLOOD UREA NITROGEN 21 MG/DL (7-18); CALCIUM LEVEL 9.2 MG/DL (8.8-10.2); CARBAMAZEPINE (TEGRETOL) LEVEL 6.1 UG/ML (4.0-10.0); CARBON DIOXIDE LEVEL 28 MEQ/L (21-32); CHLORIDE LEVEL 105 MEQ/L (98-107); CREATININE FOR GFR 0.85 MG/DL (0.55-1.30); GLOMERULAR FILTRATION RATE > 60.0 (>32); GLUCOSE, FASTING 119 MG/DL (70-100); POTASSIUM SERUM 4.2 MEQ/L (3.5-5.1); SODIUM LEVEL 140 MEQ/L (136-145)
== END ==
PROVIDERS: ATTEND Family Medicine
DX: I10 Essential (primary) hypertension (principal)

== ENCOUNTER → 2019-04-08 | Outpatient (REF) ==
[2019-04-08 14:07] LABS: HEMATOCRIT 40.8 % (36.0-47.0); MEAN CORPUSCULAR HEMOGLOBIN 31.2 pg (27.0-33.0); MEAN CORPUSCULAR HGB CONC 31.9 g/dl (32.0-36.5); MEAN CORPUSCULAR VOLUME 97.8 fl (80.0-96.0); PLATELET COUNT, AUTOMATED 268 10^3/uL (150-450); RED BLOOD COUNT 4.17 10^6/uL (4.00-5.40); WHITE BLOOD COUNT 5.8 10^3/uL (4.0-10.0)
[2019-04-08 14:27] LABS: BLOOD UREA NITROGEN 23 MG/DL (7-18); CALCIUM LEVEL 9.1 MG/DL (8.8-10.2); CARBON DIOXIDE LEVEL 29 MEQ/L (21-32); CHLORIDE LEVEL 107 MEQ/L (98-107); CREATININE FOR GFR 0.89 MG/DL (0.55-1.30); GLOMERULAR FILTRATION RATE > 60.0 (>32); GLUCOSE, FASTING 106 MG/DL (70-100); POTASSIUM SERUM 4.2 MEQ/L (3.5-5.1); SODIUM LEVEL 141 MEQ/L (136-145)
== END ==
PROVIDERS: ATTEND Family Medicine
DX: I10 Essential (primary) hypertension (principal)

== ENCOUNTER → 2019-05-04 | Outpatient (REF) ==
[2019-05-04 12:51] LABS: HEMATOCRIT 41.3 % (36.0-47.0); HEMOGLOBIN 13.6 g/dl (12.0-15.5); MEAN CORPUSCULAR HEMOGLOBIN 30.8 pg (27.0-33.0); MEAN CORPUSCULAR HGB CONC 32.9 g/dl (32.0-36.5); MEAN CORPUSCULAR VOLUME 93.4 fl (80.0-96.0); PLATELET COUNT, AUTOMATED 284 10^3/uL (150-450); RED BLOOD COUNT 4.42 10^6/uL (4.00-5.40); WHITE BLOOD COUNT 7.9 10^3/uL (4.0-10.0)
[2019-05-04 12:57] LABS: BLOOD UREA NITROGEN 20 MG/DL (7-18); CALCIUM LEVEL 9.4 MG/DL (8.8-10.2); CARBAMAZEPINE (TEGRETOL) LEVEL 3.5 UG/ML (4.0-10.0); CARBON DIOXIDE LEVEL 27 MEQ/L (21-32); CHLORIDE LEVEL 104 MEQ/L (98-107); CREATININE FOR GFR 0.82 MG/DL (0.55-1.30); GLOMERULAR FILTRATION RATE > 60.0 (>32); GLUCOSE, FASTING 125 MG/DL (70-100); POTASSIUM SERUM 4.3 MEQ/L (3.5-5.1); SODIUM LEVEL 139 MEQ/L (136-145)
[2019-05-07 00:07] LABS: LAMOTRIGINE (LAMICTAL) None Detected ug/mL (2.0-20.0)
== END ==
PROVIDERS: ATTEND Family Medicine
DX: I10 Essential (primary) hypertension (principal)

== ENCOUNTER → 2019-06-02 | Outpatient (REF) | payer MEDICARE, OTHER ==
--- NOTE | 2019-06-02 11:51 | REPPI ---
REASON: Vomiting. Portable KUB was obtained. The examination is markedly limited. I seen no gross free intraperitoneal air or intestinal obstruction. Multiple gas-filled bowel loops are noted possibly indicating a mild ileus. There is a moderate to large amount of content in the rectosigmoid vault which needs to be correlated clinically. IMPRESSION: Markedly limited exam with findings as described above. Electronically Signed by Anibal Westfall DO 06/02/2019 12:38 P
[2019-06-02 11:59] LABS: BASO % 0.3 % (0.0-1.0); EOS % 0.4 % (0.0-3.0); HEMATOCRIT 41.5 % (36.0-47.0); HEMOGLOBIN 13.4 g/dl (12.0-15.5); LYMPH # 1.7 10^3/uL (1.5-5.0); LYMPH % 16.8 % (24.0-44.0); MEAN CORPUSCULAR HEMOGLOBIN 30.5 pg (27.0-33.0); MEAN CORPUSCULAR HGB CONC 32.3 g/dl (32.0-36.5); MEAN CORPUSCULAR VOLUME 94.5 fl (80.0-96.0); MONO # 0.6 10^3/uL (0.0-0.8); MONO % 5.4 % (0.0-5.0); NEUTROPHILS # 7.9 10^3/uL (1.5-8.5); NEUTROPHILS % 76.8 % (36.0-66.0); PLATELET COUNT, AUTOMATED 298 10^3/uL (150-450); RED BLOOD COUNT 4.39 10^6/uL (4.00-5.40); WHITE BLOOD COUNT 10.2 10^3/uL (4.0-10.0)
[2019-06-02 12:15] LABS: ALBUMIN 3.6 GM/DL (3.2-5.2); ALT/SGPT 14 U/L (12-78); BILIRUBIN,TOTAL 0.6 MG/DL (0.2-1.0); BLOOD UREA NITROGEN 18 MG/DL (7-18); CALCIUM LEVEL 9.6 MG/DL (8.8-10.2); CARBON DIOXIDE LEVEL 28 MEQ/L (21-32); CHLORIDE LEVEL 103 MEQ/L (98-107); CREATININE FOR GFR 0.79 MG/DL (0.55-1.30); GLOMERULAR FILTRATION RATE > 60.0 (>32); GLUCOSE, FASTING 115 MG/DL (70-100); POTASSIUM SERUM 4.3 MEQ/L (3.5-5.1); SODIUM LEVEL 136 MEQ/L (136-145); TOTAL PROTEIN 6.9 GM/DL (6.4-8.2)
== END ==
PROVIDERS: ATTEND Internal Medicine
DX: R11.10 Vomiting, unspecified (principal)

== ENCOUNTER → 2019-06-03 | Outpatient (REF) | payer MEDICARE, OTHER ==
--- NOTE | 2019-06-03 15:34 | REPPI ---
KUB: Two views. History: Shortness of breath. Nausea. Comparison study June 02, 2019. Findings: A left hip prosthesis is noted. There is air and stool in the transverse and descending colons. There is some gas in the sigmoid colon. No small bowel dilation is seen. No organomegaly or mass is observed. Impression: Unremarkable bowel gas pattern. No evidence of obstruction. Electronically Signed by Homero Morgan MD 06/03/2019 04:11 P
== END ==
PROVIDERS: ATTEND Nurse Practitioner Adult Health
DX: R06.02 Shortness of breath (principal); R11.0 Nausea

== ENCOUNTER → 2019-06-07 | Outpatient (REF) | payer MEDICARE, OTHER ==
[2019-06-07 11:53] LABS: HEMATOCRIT 41.7 % (36.0-47.0); HEMOGLOBIN 13.4 g/dl (12.0-15.5); MEAN CORPUSCULAR HEMOGLOBIN 30.2 pg (27.0-33.0); MEAN CORPUSCULAR HGB CONC 32.1 g/dl (32.0-36.5); MEAN CORPUSCULAR VOLUME 94.1 fl (80.0-96.0); PLATELET COUNT, AUTOMATED 306 10^3/uL (150-450); RED BLOOD COUNT 4.43 10^6/uL (4.00-5.40)
[2019-06-07 12:09] LABS: BLOOD UREA NITROGEN 19 MG/DL (7-18); CALCIUM LEVEL 9.5 MG/DL (8.8-10.2); CARBON DIOXIDE LEVEL 26 MEQ/L (21-32); CHLORIDE LEVEL 107 MEQ/L (98-107); CREATININE FOR GFR 0.85 MG/DL (0.55-1.30); GLOMERULAR FILTRATION RATE > 60.0 (>32); GLUCOSE, FASTING 118 MG/DL (70-100); POTASSIUM SERUM 4.4 MEQ/L (3.5-5.1); SODIUM LEVEL 139 MEQ/L (136-145)
== END ==
PROVIDERS: ATTEND Family Medicine
DX: I10 Essential (primary) hypertension (principal)

== ENCOUNTER → 2019-06-11 | Outpatient (REF) ==
[2019-06-12 00:40] LABS: HEMATOCRIT 34.6 % (36.0-47.0); HEMOGLOBIN 11.3 g/dl (12.0-15.5); MEAN CORPUSCULAR HEMOGLOBIN 30.2 pg (27.0-33.0); MEAN CORPUSCULAR HGB CONC 32.7 g/dl (32.0-36.5); MEAN CORPUSCULAR VOLUME 92.5 fl (80.0-96.0); PLATELET COUNT, AUTOMATED 264 10^3/uL (150-450); RED BLOOD COUNT 3.74 10^6/uL (4.00-5.40); WHITE BLOOD COUNT 8.6 10^3/uL (4.0-10.0)
[2019-06-12 00:48] LABS: ALBUMIN 3.2 GM/DL (3.2-5.2); ALT/SGPT 12 U/L (12-78); BILIRUBIN,TOTAL 0.3 MG/DL (0.2-1.0); BLOOD UREA NITROGEN 10 MG/DL (7-18); CALCIUM LEVEL 8.6 MG/DL (8.8-10.2); CARBON DIOXIDE LEVEL 29 MEQ/L (21-32); CHLORIDE LEVEL 102 MEQ/L (98-107); CREATININE FOR GFR 0.64 MG/DL (0.55-1.30); GLOMERULAR FILTRATION RATE > 60.0 (>32); GLUCOSE, FASTING 94 MG/DL (70-100); SODIUM LEVEL 137 MEQ/L (136-145); TOTAL PROTEIN 5.9 GM/DL (6.4-8.2)
== END ==
PROVIDERS: ATTEND Family Medicine
DX: R19.8 Other specified symptoms and signs involving the digestive system and abdomen (principal)

== ENCOUNTER → 2019-06-13 | Outpatient (REF) | payer MEDICARE, OTHER ==
--- NOTE | 2019-06-13 11:26 | REP ---
REASON: Assess for obstruction. Patient has vomiting. COMPARISON: Portable KUB of 06/30/2019. Supine and cross table lateral views of the abdomen were obtained with supine frontal chest. The spine frontal chest shows the cardiac silhouette to be magnified by technique. Cardiomegaly is suspected. No abnormal lung field opacities are present. Supine and cross table lateral views of the abdomen show the intestinal gas pattern to be nonspecific. There is no evidence of free intraperitoneal air on this limited exam. There is no evidence of intestinal obstruction. IMPRESSION: Nonspecific findings as described above. Electronically Signed by Anibal Westfall DO 06/13/2019 11:52 A
== END ==
PROVIDERS: ATTEND Family Medicine
DX: R11.10 Vomiting, unspecified (principal)

== ENCOUNTER → 2019-06-20 | Outpatient (REF) | PROVIDERS: ATTEND Family Medicine | DX: R11.10 Vomiting, unspecified (principal) ==

== ENCOUNTER → 2019-07-05 | Outpatient (REF) | payer MEDICARE, OTHER ==
[2019-07-05 12:04] LABS: HEMATOCRIT 40.4 % (36.0-47.0); HEMOGLOBIN 12.8 g/dl (12.0-15.5); MEAN CORPUSCULAR HEMOGLOBIN 29.7 pg (27.0-33.0); MEAN CORPUSCULAR HGB CONC 31.7 g/dl (32.0-36.5); MEAN CORPUSCULAR VOLUME 93.7 fl (80.0-96.0); PLATELET COUNT, AUTOMATED 297 10^3/uL (150-450); RED BLOOD COUNT 4.31 10^6/uL (4.00-5.40); WHITE BLOOD COUNT 6.4 10^3/uL (4.0-10.0)
[2019-07-05 12:15] LABS: BLOOD UREA NITROGEN 24 MG/DL (7-18); CALCIUM LEVEL 9.7 MG/DL (8.8-10.2); CARBAMAZEPINE (TEGRETOL) LEVEL < 0.5 UG/ML (4.0-10.0); CARBON DIOXIDE LEVEL 25 MEQ/L (21-32); CHLORIDE LEVEL 107 MEQ/L (98-107); CREATININE FOR GFR 0.76 MG/DL (0.55-1.30); GLOMERULAR FILTRATION RATE > 60.0 (>32); GLUCOSE, FASTING 94 MG/DL (70-100); POTASSIUM SERUM 4.4 MEQ/L (3.5-5.1); SODIUM LEVEL 141 MEQ/L (136-145)
== END ==
PROVIDERS: ATTEND Family Medicine
DX: I10 Essential (primary) hypertension (principal)

== ENCOUNTER → 2019-07-11 | Outpatient (REF) | payer MEDICARE, OTHER ==
[2019-07-11 17:12] LABS: APPEARANCE, URINE MANUAL CLOUDY (CLEAR); COLOR, URINE MANUAL YELLOW (YELLOW)
[2019-07-11 17:13] LABS: GLUCOSE, URINE (UA) MANUAL NEGATIVE (NEGATIVE); PROTEIN, URINE MANUAL 3+ mg/dL (NEGATIVE); SPECIFIC GRAVITY,URINE MANUAL 1.005 (1.002-1.035)
[2019-07-11 17:14] LABS: BILIRUBIN, URINE MANUAL NEGATIVE (NEGATIVE); BLOOD URINE MANUAL POSITIVE (NEGATIVE); KETONE, URINE MANUAL NEGATIVE (NEGATIVE); LEUKOCYTE ESTERASE, URINE MAN POSITIVE (NEGATIVE); NITRITE, URINE MANUAL NEGATIVE (NEGATIVE); UROBILINOGEN, URINE MANUAL NORMAL (NORMAL)
[2019-07-11 17:15] LABS: WBC, URINE TNTC /hpf (0-3)
[2019-07-11 17:16] LABS: BACTERIA, URINE LARGE AMOUNT; HYALINE CAST, URINE NONE SEEN /lpf (0-1); RBC, URINE NONE SEEN /hpf (0-3); SQUAMOUS EPITHELIAL CELL URINE SMALL AMOUNT /hpf (SMALL AMT)
== END ==
PROVIDERS: ATTEND Family Medicine
DX: N39.0 Urinary tract infection, site not specified (principal)

== ENCOUNTER → 2019-07-12 | Outpatient (REF) | payer MEDICARE, OTHER ==
[2019-07-12 10:57] LABS: BASO # 0.1 10^3/uL (0.0-0.2); BASO % 0.6 % (0.0-1.0); EOS # 0.3 10^3/uL (0.0-0.5); HEMATOCRIT 39.9 % (36.0-47.0); HEMOGLOBIN 13.1 g/dl (12.0-15.5); LYMPH # 1.3 10^3/uL (1.5-5.0); LYMPH % 16.5 % (24.0-44.0); MEAN CORPUSCULAR HEMOGLOBIN 30.8 pg (27.0-33.0); MEAN CORPUSCULAR HGB CONC 32.8 g/dl (32.0-36.5); MEAN CORPUSCULAR VOLUME 93.9 fl (80.0-96.0); MONO # 0.5 10^3/uL (0.0-0.8); MONO % 6.8 % (0.0-5.0); NEUTROPHILS # 5.6 10^3/uL (1.5-8.5); NEUTROPHILS % 71.6 % (36.0-66.0); PLATELET COUNT, AUTOMATED 352 10^3/uL (150-450); RED BLOOD COUNT 4.25 10^6/uL (4.00-5.40); WHITE BLOOD COUNT 7.8 10^3/uL (4.0-10.0)
[2019-07-12 11:37] LABS: ALBUMIN 3.3 GM/DL (3.2-5.2); BILIRUBIN,TOTAL 0.3 MG/DL (0.2-1.0); CALCIUM LEVEL 9.4 MG/DL (8.8-10.2); CREATININE FOR GFR 1.14 MG/DL (0.55-1.30); GLOMERULAR FILTRATION RATE 48.8 (>32); POTASSIUM SERUM 4.7 MEQ/L (3.5-5.1); TOTAL PROTEIN 6.6 GM/DL (6.4-8.2)
== END ==
PROVIDERS: ATTEND Family Medicine
DX: Z13.89 Encounter for screening for other disorder (principal); R82.90 Unspecified abnormal findings in urine

== ENCOUNTER → 2019-07-18 | Outpatient (REF) | PROVIDERS: ATTEND Internal Medicine | DX: Z03.818 Encounter for observation for suspected exposure to other biological agents ruled out (principal) ==

== ENCOUNTER → 2019-07-18 | Outpatient (REF) | PROVIDERS: ATTEND Family Medicine | DX: R56.9 Unspecified convulsions (principal) ==

== ENCOUNTER → 2019-08-04 | Outpatient (REF) ==
[2019-08-04 10:20] LABS: HEMATOCRIT 34.8 % (36.0-47.0); HEMOGLOBIN 11.2 g/dl (12.0-15.5); MEAN CORPUSCULAR HEMOGLOBIN 30.9 pg (27.0-33.0); MEAN CORPUSCULAR HGB CONC 32.2 g/dl (32.0-36.5); MEAN CORPUSCULAR VOLUME 96.1 fl (80.0-96.0); PLATELET COUNT, AUTOMATED 226 10^3/uL (150-450); RED BLOOD COUNT 3.62 10^6/uL (4.00-5.40); WHITE BLOOD COUNT 5.6 10^3/uL (4.0-10.0)
[2019-08-04 10:43] LABS: BLOOD UREA NITROGEN 26 MG/DL (7-18); CALCIUM LEVEL 9.2 MG/DL (8.8-10.2); CARBON DIOXIDE LEVEL 31 MEQ/L (21-32); CHLORIDE LEVEL 107 MEQ/L (98-107); CREATININE FOR GFR 0.84 MG/DL (0.55-1.30); GLOMERULAR FILTRATION RATE > 60.0 (>32); GLUCOSE, FASTING 102 MG/DL (70-100); POTASSIUM SERUM 4.3 MEQ/L (3.5-5.1); SODIUM LEVEL 144 MEQ/L (136-145)
== END ==
PROVIDERS: ATTEND Family Medicine
DX: I10 Essential (primary) hypertension (principal)

== ENCOUNTER → 2019-09-07 | Outpatient (REF) ==
[2019-09-07 10:25] LABS: HEMATOCRIT 38.9 % (36.0-47.0); HEMOGLOBIN 12.5 g/dl (12.0-15.5); MEAN CORPUSCULAR HEMOGLOBIN 30.4 pg (27.0-33.0); MEAN CORPUSCULAR HGB CONC 32.1 g/dl (32.0-36.5); MEAN CORPUSCULAR VOLUME 94.6 fl (80.0-96.0); PLATELET COUNT, AUTOMATED 254 10^3/uL (150-450); RED BLOOD COUNT 4.11 10^6/uL (4.00-5.40); WHITE BLOOD COUNT 7.6 10^3/uL (4.0-10.0)
[2019-09-07 10:40] LABS: BLOOD UREA NITROGEN 20 MG/DL (7-18); CARBON DIOXIDE LEVEL 26 MEQ/L (21-32); CHLORIDE LEVEL 106 MEQ/L (98-107); GLOMERULAR FILTRATION RATE > 60.0 (>32); GLUCOSE, FASTING 127 MG/DL (70-100); POTASSIUM SERUM 4.5 MEQ/L (3.5-5.1); SODIUM LEVEL 138 MEQ/L (136-145)
== END ==
PROVIDERS: ATTEND Family Medicine
DX: I10 Essential (primary) hypertension (principal)

== ENCOUNTER → 2019-10-04 | Outpatient (REF) | payer MEDICARE, OTHER ==
[2019-12-02 10:15] LABS: HEMATOCRIT 41.2 % (36.0-47.0); MEAN CORPUSCULAR HEMOGLOBIN 30.8 pg (27.0-33.0); MEAN CORPUSCULAR HGB CONC 31.6 g/dl (32.0-36.5); MEAN CORPUSCULAR VOLUME 97.6 fl (80.0-96.0); PLATELET COUNT, AUTOMATED 260 10^3/uL (150-450); RED BLOOD COUNT 4.22 10^6/uL (4.00-5.40); WHITE BLOOD COUNT 6.4 10^3/uL (4.0-10.0)
[2019-12-03 11:23] LABS: BLOOD UREA NITROGEN 21 MG/DL (7-18); CALCIUM LEVEL 9.4 MG/DL (8.8-10.2); CARBAMAZEPINE (TEGRETOL) LEVEL 3.9 UG/ML (4.0-10.0); CARBON DIOXIDE LEVEL 32 MEQ/L (21-32); CHLORIDE LEVEL 104 MEQ/L (98-107); CREATININE FOR GFR 0.88 MG/DL (0.55-1.30); GLOMERULAR FILTRATION RATE > 60.0 (>32); GLUCOSE, FASTING 101 MG/DL (70-100); POTASSIUM SERUM 4.5 MEQ/L (3.5-5.1); SODIUM LEVEL 138 MEQ/L (136-145)
[2019-12-05 06:52] LABS: LAMOTRIGINE (LAMICTAL) SEE SEPARATE REPORT
== END ==
PROVIDERS: ATTEND Internal Medicine
DX: I10 Essential (primary) hypertension (principal)

== ENCOUNTER → 2019-11-11 | Outpatient (REF) | payer MEDICARE, OTHER ==
[2019-11-11 10:37] LABS: HEMATOCRIT 40.3 % (36.0-47.0); HEMOGLOBIN 12.8 g/dl (12.0-15.5); MEAN CORPUSCULAR HEMOGLOBIN 30.6 pg (27.0-33.0); MEAN CORPUSCULAR HGB CONC 31.8 g/dl (32.0-36.5); MEAN CORPUSCULAR VOLUME 96.4 fl (80.0-96.0); PLATELET COUNT, AUTOMATED 243 10^3/uL (150-450); RED BLOOD COUNT 4.18 10^6/uL (4.00-5.40); WHITE BLOOD COUNT 6.8 10^3/uL (4.0-10.0)
[2019-11-11 10:58] LABS: BLOOD UREA NITROGEN 22 MG/DL (7-18); CALCIUM LEVEL 9.2 MG/DL (8.8-10.2); CARBON DIOXIDE LEVEL 30 MEQ/L (21-32); CHLORIDE LEVEL 106 MEQ/L (98-107); CREATININE FOR GFR 0.89 MG/DL (0.55-1.30); GLOMERULAR FILTRATION RATE > 60.0 (>32); GLUCOSE, FASTING 109 MG/DL (70-100); POTASSIUM SERUM 4.7 MEQ/L (3.5-5.1); SODIUM LEVEL 141 MEQ/L (136-145)
== END ==
PROVIDERS: ATTEND Internal Medicine
DX: I10 Essential (primary) hypertension (principal)

== ENCOUNTER → 2019-11-22 | Outpatient (REF) | payer MEDICARE, OTHER ==
[2019-11-28 13:07] LABS: LAMOTRIGINE (LAMICTAL) 0.8 ug/mL (2.0-20.0)
== END ==
PROVIDERS: ATTEND Internal Medicine
DX: G40.909 Epilepsy, unspecified, not intractable, without status epilepticus (principal)

== ENCOUNTER → 2019-12-30 | Outpatient (REF) | payer MEDICARE, OTHER ==
[2019-12-30 10:30] LABS: HEMATOCRIT 37.5 % (36.0-47.0); HEMOGLOBIN 12.2 g/dl (12.0-15.5); MEAN CORPUSCULAR HEMOGLOBIN 31.1 pg (27.0-33.0); MEAN CORPUSCULAR HGB CONC 32.5 g/dl (32.0-36.5); MEAN CORPUSCULAR VOLUME 95.7 fl (80.0-96.0); PLATELET COUNT, AUTOMATED 253 10^3/uL (150-450); RED BLOOD COUNT 3.92 10^6/uL (4.00-5.40); WHITE BLOOD COUNT 6.8 10^3/uL (4.0-10.0)
[2019-12-30 11:00] LABS: BLOOD UREA NITROGEN 20 MG/DL (7-18); CARBAMAZEPINE (TEGRETOL) LEVEL 5.7 UG/ML (4.0-10.0); CARBON DIOXIDE LEVEL 29 MEQ/L (21-32); CHLORIDE LEVEL 103 MEQ/L (98-107); CREATININE FOR GFR 0.86 MG/DL (0.55-1.30); GLOMERULAR FILTRATION RATE > 60.0 (>32); GLUCOSE, FASTING 98 MG/DL (70-100); POTASSIUM SERUM 4.7 MEQ/L (3.5-5.1); SODIUM LEVEL 138 MEQ/L (136-145)
[2020-01-05 14:13] LABS: LAMOTRIGINE (LAMICTAL) 2.2 ug/mL (2.0-20.0)
== END ==
PROVIDERS: ATTEND Internal Medicine
DX: R60.9 Edema, unspecified (principal)

== ENCOUNTER → 2020-01-12 | Outpatient (REF) | PROVIDERS: ATTEND Internal Medicine | DX: Z20.828 Contact with and (suspected) exposure to other viral communicable diseases (principal) ==

== ENCOUNTER → 2020-01-19 | Outpatient (REF) | payer MEDICARE, OTHER ==
[~2020-01-19] MED LIST changes: +LISI10TA22 PO; -LISI10TA4 PO
== END ==
LOC: EDSTATUS 02-28 16:05
PROVIDERS: ATTEND Internal Medicine
DX: Z20.828 Contact with and (suspected) exposure to other viral communicable diseases (principal)

== ENCOUNTER → 2020-01-25 | Outpatient (REF) | payer MEDICARE, OTHER | PROVIDERS: ATTEND Internal Medicine | DX: Z20.828 Contact with and (suspected) exposure to other viral communicable diseases (principal) ==

== ENCOUNTER → 2020-02-12 | Outpatient (REF) | payer MEDICARE, OTHER ==
[~2020-02-12] MED LIST changes: -LISI10TA22 PO; +LISI10TA4 PO
== END ==
PROVIDERS: ATTEND Internal Medicine
DX: Z20.828 Contact with and (suspected) exposure to other viral communicable diseases (principal)

== ENCOUNTER → 2020-02-16 | Outpatient (REF) | payer MEDICARE, OTHER | PROVIDERS: ATTEND Internal Medicine | DX: Z20.828 Contact with and (suspected) exposure to other viral communicable diseases (principal) ==

== ENCOUNTER → 2020-02-20 | Outpatient (REF) | payer MEDICARE, OTHER ==
[2020-02-20 12:00] LABS: RSV AMPLIFICATION NEGATIVE (NEGATIVE)
== END ==
PROVIDERS: ATTEND Internal Medicine
DX: Z20.828 Contact with and (suspected) exposure to other viral communicable diseases (principal)

== ENCOUNTER → 2020-02-22 | Outpatient (REF) | payer MEDICARE, OTHER | PROVIDERS: ATTEND Internal Medicine | DX: Z20.828 Contact with and (suspected) exposure to other viral communicable diseases (principal) ==

== ENCOUNTER → 2020-02-28 | Outpatient (REF) | payer MEDICARE, OTHER | PROVIDERS: ATTEND Internal Medicine | DX: Z20.828 Contact with and (suspected) exposure to other viral communicable diseases (principal) ==

== ENCOUNTER → 2020-03-05 | Outpatient (REF) | payer MEDICARE, OTHER | PROVIDERS: ATTEND Internal Medicine | DX: Z20.822 Contact with and (suspected) exposure to COVID-19 (principal) ==

== ENCOUNTER → 2020-03-07 | Outpatient (REF) | payer MEDICARE, OTHER ==
[2020-03-07 17:51] LABS: RSV AMPLIFICATION NEGATIVE (NEGATIVE)
== END ==
PROVIDERS: ATTEND Internal Medicine
DX: R19.7 Diarrhea, unspecified (principal)

== ENCOUNTER → 2020-03-09 | Outpatient (REF) | payer MEDICARE, OTHER | PROVIDERS: ATTEND Internal Medicine | DX: Z20.822 Contact with and (suspected) exposure to COVID-19 (principal) ==

== ENCOUNTER → 2020-03-14 | Outpatient (REF) | payer MEDICARE, OTHER | PROVIDERS: ATTEND Internal Medicine | DX: Z20.822 Contact with and (suspected) exposure to COVID-19 (principal) ==

== ENCOUNTER → 2020-03-20 | Outpatient (REF) | payer MEDICARE, OTHER ==
[~2020-03-20] MED LIST changes: +LISI10TA22 PO; -LISI10TA4 PO
== END ==
LOC: M LAB REF 14:31
PROVIDERS: ATTEND Dermatology
DX: C44.311 Basal cell carcinoma of skin of nose (principal)
CPT/HCPCS: 11102; 88305; G0463

== ENCOUNTER → 2020-03-21 | Outpatient (REF) | payer MEDICARE, OTHER ==
[~2020-03-21] MED LIST changes: -LISI10TA22 PO; +LISI10TA4 PO
== END ==
PROVIDERS: ATTEND Internal Medicine
DX: Z20.822 Contact with and (suspected) exposure to COVID-19 (principal)

== ENCOUNTER → 2020-03-28 | Outpatient (REF) | payer MEDICARE, OTHER | PROVIDERS: ATTEND Internal Medicine | DX: Z20.822 Contact with and (suspected) exposure to COVID-19 (principal) ==

== ENCOUNTER → 2020-03-29 | Outpatient (REF) | payer MEDICARE, OTHER ==
[2020-04-05 08:08] LABS: LAMOTRIGINE (LAMICTAL) 2.2 ug/mL (2.0-20.0)
== END ==
PROVIDERS: ATTEND Internal Medicine
DX: G40.89 Other seizures (principal)

== ENCOUNTER → 2020-04-04 | Outpatient (REF) | payer MEDICARE, OTHER | PROVIDERS: ATTEND Internal Medicine | DX: Z20.828 Contact with and (suspected) exposure to other viral communicable diseases (principal) ==

== ENCOUNTER → 2020-04-11 | Outpatient (REF) | payer MEDICARE, OTHER ==
[~2020-04-11] MED LIST changes: +LISI10TA22 PO; -LISI10TA4 PO
== END ==
PROVIDERS: ATTEND Internal Medicine
DX: Z20.822 Contact with and (suspected) exposure to COVID-19 (principal)

== ENCOUNTER → 2020-04-18 | Outpatient (REF) | payer MEDICARE, OTHER | PROVIDERS: ATTEND Internal Medicine | DX: Z20.822 Contact with and (suspected) exposure to COVID-19 (principal) ==

== ENCOUNTER → 2020-04-25 | Outpatient (REF) | payer MEDICARE, OTHER | PROVIDERS: ATTEND Internal Medicine | DX: Z20.822 Contact with and (suspected) exposure to COVID-19 (principal) ==

== ENCOUNTER → 2020-05-02 | Outpatient (REF) | payer MEDICARE, OTHER | PROVIDERS: ATTEND Internal Medicine | DX: Z20.822 Contact with and (suspected) exposure to COVID-19 (principal) ==

== ENCOUNTER → 2020-05-03 | Outpatient (REF) | payer MEDICARE, OTHER ==
[2020-05-03 09:08] LABS: HEMATOCRIT 39.7 % (36.0-47.0); HEMOGLOBIN 12.6 g/dl (12.0-15.5); MEAN CORPUSCULAR HGB CONC 31.7 g/dl (32.0-36.5); MEAN CORPUSCULAR VOLUME 97.8 fl (80.0-96.0); PLATELET COUNT, AUTOMATED 245 10^3/uL (150-450); RED BLOOD COUNT 4.06 10^6/uL (4.00-5.40); WHITE BLOOD COUNT 6.5 10^3/uL (4.0-10.0)
[2020-05-03 09:36] LABS: BLOOD UREA NITROGEN 26 MG/DL (7-18); CALCIUM LEVEL 9.5 MG/DL (8.8-10.2); CARBON DIOXIDE LEVEL 30 MEQ/L (21-32); CHLORIDE LEVEL 106 MEQ/L (98-107); CREATININE FOR GFR 0.75 MG/DL (0.55-1.30); GLOMERULAR FILTRATION RATE > 60.0 (>32); GLUCOSE, FASTING 94 MG/DL (70-100); POTASSIUM SERUM 4.4 MEQ/L (3.5-5.1); SODIUM LEVEL 141 MEQ/L (136-145)
== END ==
PROVIDERS: ATTEND Internal Medicine
DX: I10 Essential (primary) hypertension (principal)

== ENCOUNTER → 2020-05-09 | Outpatient (REF) | payer MEDICARE, OTHER | PROVIDERS: ATTEND Internal Medicine | DX: Z11.52 Encounter for screening for COVID-19 (principal) ==

== ENCOUNTER → 2020-05-18 | Outpatient (REF) | payer MEDICARE ==
[2020-05-18 09:52] LABS: ALBUMIN 3.6 GM/DL (3.2-5.2); BILIRUBIN,DIRECT 0.1 MG/DL (0.0-0.2); BILIRUBIN,TOTAL 0.2 MG/DL (0.2-1.0); CHOLESTEROL RISK RATIO 3.271 (<5); THYROID STIMULATING HORMONE 1.19 uIU/ML (0.358-3.740); TOTAL PROTEIN 6.9 GM/DL (6.4-8.2)
[2020-05-18 10:22] LABS: TOTAL 25(OH) VITAMIN D 25.1 NG/ML (30.0-100.0)
== END ==
PROVIDERS: ATTEND Internal Medicine
DX: I50.9 Heart failure, unspecified (principal); Z79.899 Other long term (current) drug therapy

== ENCOUNTER → 2020-05-22 | Outpatient (REF) | payer MEDICARE ==
[2020-05-22 14:14] LABS: HEMATOCRIT 39.6 % (36.0-47.0); HEMOGLOBIN 12.7 g/dl (12.0-15.5); MEAN CORPUSCULAR HEMOGLOBIN 31.4 pg (27.0-33.0); MEAN CORPUSCULAR HGB CONC 32.1 g/dl (32.0-36.5); MEAN CORPUSCULAR VOLUME 97.8 fl (80.0-96.0); PLATELET COUNT, AUTOMATED 257 10^3/uL (150-450); RED BLOOD COUNT 4.05 10^6/uL (4.00-5.40); WHITE BLOOD COUNT 6.6 10^3/uL (4.0-10.0)
[2020-05-22 14:43] LABS: ALBUMIN 3.5 GM/DL (3.2-5.2); ALT/SGPT 25 U/L (12-78); BILIRUBIN,TOTAL 0.2 MG/DL (0.2-1.0); BLOOD UREA NITROGEN 23 MG/DL (7-18); CARBON DIOXIDE LEVEL 32 MEQ/L (21-32); CHLORIDE LEVEL 103 MEQ/L (98-107); GLOMERULAR FILTRATION RATE > 60.0 (>32); GLUCOSE, FASTING 89 MG/DL (70-100); POTASSIUM SERUM 4.6 MEQ/L (3.5-5.1); SODIUM LEVEL 140 MEQ/L (136-145); TOTAL PROTEIN 6.9 GM/DL (6.4-8.2)
== END ==
PROVIDERS: ATTEND Nurse Practitioner Adult Health
DX: R41.82 Altered mental status, unspecified (principal)

== ENCOUNTER → 2020-06-06 | Outpatient (REF) | payer MEDICARE | PROVIDERS: ATTEND Internal Medicine | DX: R53.83 Other fatigue (principal) ==

== ENCOUNTER → 2020-06-08 | Outpatient (REF) | payer MEDICARE ==
[2020-06-08 15:32] LABS: INFLUENZA A AMPLIFICATION NEGATIVE (NEGATIVE); INFLUENZA B AMPLIFICATION NEGATIVE (NEGATIVE)
== END ==
PROVIDERS: ATTEND Internal Medicine
DX: Z11.52 Encounter for screening for COVID-19 (principal)

== ENCOUNTER → 2020-06-12 | Outpatient (REF) | payer MEDICARE | PROVIDERS: ATTEND Internal Medicine | DX: Z20.822 Contact with and (suspected) exposure to COVID-19 (principal) ==

== ENCOUNTER 2020-06-15 10:53 | Outpatient (CLI) | payer MEDICARE ==
[~2020-06-15] VITALS: Ht 167.6 cm; Wt 100.0 kg
[2020-06-15] VITALS (7 sets, daily range): BP systolic 129–142; BP diastolic 59–91
[2020-06-15] MEDS ORDERED: diphenhydrAMINE 50MG/ML VIAL (J1200) IV PRN (11:35)
[2020-06-15] MEDS ORDERED: NS 1,000 ML IV SCH (11:35)
[2020-06-15] MEDS ORDERED: ALBUTEROL SULFATE 2.5 MG/0.5 ML INH NEB SOLN INH PRN (11:35)
[2020-06-15] MEDS ORDERED: EPINEPHrine INJ 1 MG/ML 1ML AMP IM PRN (11:35)
[2020-06-15] MEDS ORDERED: ALBUTEROL 90 MCG/ACT 8GM HFA INHALER INH PRN (11:35)
[2020-06-15] MEDS ORDERED: methylPREDNISolone 125MG 2ML VIAL IV PRN (11:35)
[2020-06-15] MEDS ORDERED: CASIRIVIMAB (REGN10933) 1,200 MG, IMDEVIMAB (REGN10987) 1,200 MG in NS 230 ML IV ONE (12:00)
== END 2020-06-15 15:31 ==
LOC: M 4MAIN 10:53 → M INFU 10:53
PROVIDERS: ATTEND Nurse Practitioner Adult Health
DX: U07.1 COVID-19 (principal)

== ENCOUNTER → 2020-07-03 | Outpatient (REF) | payer MEDICARE ==
[2020-07-03 10:45] LABS: HEMATOCRIT 39.3 % (36.0-47.0); HEMOGLOBIN 12.2 g/dl (12.0-15.5); MEAN CORPUSCULAR HEMOGLOBIN 30.7 pg (27.0-33.0); PLATELET COUNT, AUTOMATED 269 10^3/uL (150-450); RED BLOOD COUNT 3.97 10^6/uL (4.00-5.40); WHITE BLOOD COUNT 7.8 10^3/uL (4.0-10.0)
[2020-07-03 11:13] LABS: BLOOD UREA NITROGEN 22 MG/DL (7-18); CALCIUM LEVEL 9.1 MG/DL (8.8-10.2); CARBON DIOXIDE LEVEL 27 MEQ/L (21-32); CHLORIDE LEVEL 106 MEQ/L (98-107); CREATININE FOR GFR 0.95 MG/DL (0.55-1.30); GLOMERULAR FILTRATION RATE > 60.0 (>32); GLUCOSE, FASTING 111 MG/DL (70-100); POTASSIUM SERUM 4.2 MEQ/L (3.5-5.1); SODIUM LEVEL 139 MEQ/L (136-145)
== END ==
PROVIDERS: ATTEND Internal Medicine
DX: I10 Essential (primary) hypertension (principal)

== ENCOUNTER → 2020-07-09 | Outpatient (REF) | payer MEDICARE ==
[2020-07-09 13:57] LABS: HEMATOCRIT 36.8 % (36.0-47.0); HEMOGLOBIN 11.7 g/dl (12.0-15.5); MEAN CORPUSCULAR HEMOGLOBIN 30.9 pg (27.0-33.0); MEAN CORPUSCULAR HGB CONC 31.8 g/dl (32.0-36.5); MEAN CORPUSCULAR VOLUME 97.1 fl (80.0-96.0); PLATELET COUNT, AUTOMATED 249 10^3/uL (150-450); RED BLOOD COUNT 3.79 10^6/uL (4.00-5.40); WHITE BLOOD COUNT 6.7 10^3/uL (4.0-10.0)
[2020-07-09 14:31] LABS: ALBUMIN 3.2 GM/DL (3.2-5.2); BILIRUBIN,TOTAL 0.2 MG/DL (0.2-1.0); CALCIUM LEVEL 8.6 MG/DL (8.8-10.2); CARBAMAZEPINE (TEGRETOL) LEVEL 7.1 UG/ML (4.0-10.0); CREATININE FOR GFR 0.97 MG/DL (0.55-1.30); GLOMERULAR FILTRATION RATE 58.7 (>32); POTASSIUM SERUM 4.5 MEQ/L (3.5-5.1); THYROID STIMULATING HORMONE 1.03 uIU/ML (0.358-3.740); TOTAL PROTEIN 6.4 GM/DL (6.4-8.2)
== END ==
PROVIDERS: ATTEND Internal Medicine
DX: G40.909 Epilepsy, unspecified, not intractable, without status epilepticus (principal); Z79.899 Other long term (current) drug therapy

== ENCOUNTER → 2020-07-11 | Outpatient (REF) | payer MEDICARE | PROVIDERS: ATTEND Internal Medicine | DX: Z51.81 Encounter for therapeutic drug level monitoring (principal); Z79.899 Other long term (current) drug therapy ==

== ENCOUNTER → 2020-07-12 | Outpatient (REF) | payer MEDICARE ==
--- NOTE | 2020-07-12 15:07 | REPPI ---
INDICATION: ABDOMINAL DISTENTION AMS 456-2. COMPARISON: 06/13/2019 and abdominal series FINDINGS: KUB shows the intestinal gas pattern to be nonspecific. The organ silhouettes insofar as delineated are unremarkable. There is no evidence of free intraperitoneal air. IMPRESSION: Nonspecific. No significant change compared to the prior exam other than technique. <Electronically signed by Anibal Westfall > 07/12/20 [id number]
[2020-07-12 17:03] LABS: ALBUMIN 3.4 GM/DL (3.2-5.2); ALT/SGPT 15 U/L (12-78); AMYLASE 56 U/L (25-115); BILIRUBIN,TOTAL 0.2 MG/DL (0.2-1.0); BLOOD UREA NITROGEN 26 MG/DL (7-18); CALCIUM LEVEL 8.8 MG/DL (8.8-10.2); CARBON DIOXIDE LEVEL 28 MEQ/L (21-32); CHLORIDE LEVEL 105 MEQ/L (98-107); CREATININE FOR GFR 0.88 MG/DL (0.55-1.30); GLOMERULAR FILTRATION RATE > 60.0 (>32); GLUCOSE, FASTING 101 MG/DL (70-100); LIPASE 57 U/L (73-393); POTASSIUM SERUM 4.6 MEQ/L (3.5-5.1); SODIUM LEVEL 140 MEQ/L (136-145); TOTAL PROTEIN 6.8 GM/DL (6.4-8.2)
[2020-07-12 18:55] LABS: HEMATOCRIT 39.3 % (36.0-47.0); HEMOGLOBIN 12.2 g/dl (12.0-15.5); MEAN CORPUSCULAR HEMOGLOBIN 30.9 pg (27.0-33.0); MEAN CORPUSCULAR VOLUME 99.5 fl (80.0-96.0); PLATELET COUNT, AUTOMATED 287 10^3/uL (150-450); RED BLOOD COUNT 3.95 10^6/uL (4.00-5.40); WHITE BLOOD COUNT 6.7 10^3/uL (4.0-10.0)
== END ==
PROVIDERS: ATTEND Internal Medicine
DX: R41.82 Altered mental status, unspecified (principal); R14.0 Abdominal distension (gaseous); Z79.899 Other long term (current) drug therapy

== ENCOUNTER → 2020-07-16 | Outpatient (CLI) | payer MEDICARE ==
--- NOTE | 2020-07-16 10:53 | REP ---
INDICATION: RUQ PAIN, ABNORMAL LFTS / WAITING IN CT AREA. COMPARISON: None. TECHNIQUE: Real-time sonographic evaluation of ABDOMEN performed. FINDINGS: Sludge and stones fill the gallbladder lumen. There is no gallbladder wall thickening or pericholecystic fluid.. There is no intrahepatic or extrahepatic biliary dilatation, common bile duct measures 4 mm in maximum diameter. The liver demonstrates homogeneous echotexture with no gross mass. The pancreas could not be visualized due to overlying bowel gas. Spleen is normal in size with no intrinsic abnormality, measuring 9.6 cm in length. The kidneys appear atrophic and are echogenic in echotexture suggesting medical renal disease. There is no hydronephrosis bilaterally. The right kidney measures 7.4 x 3.6 x 4.4 cm. Left renal dimensions are 8.5 x 4.5 x 5.6 cm. No free fluid is seen. IMPRESSION: Sludge and stones filling the gallbladder with no gallbladder wall thickening, pericholecystic fluid or biliary dilatation. Kidneys are atrophic and echogenic in echotexture suggesting medical renal disease, without hydronephrosis. <Electronically signed by Roe Garner > 07/16/20 [id number]
== END ==
LOC: M RAD 09:45
PROVIDERS: ATTEND Nurse Practitioner Adult Health
DX: R10.11 Right upper quadrant pain (principal)

== ENCOUNTER → 2020-07-19 | Outpatient (REF) | PROVIDERS: ATTEND Internal Medicine | DX: G40.909 Epilepsy, unspecified, not intractable, without status epilepticus (principal) ==

== ENCOUNTER → 2020-09-12 | Outpatient (REF) | payer MEDICARE ==
[2020-09-12 20:15] LABS: BLOOD UREA NITROGEN 22 MG/DL (7-18); CARBAMAZEPINE (TEGRETOL) LEVEL 4.8 UG/ML (4.0-10.0); CARBON DIOXIDE LEVEL 27 MEQ/L (21-32); CHLORIDE LEVEL 106 MEQ/L (98-107); CREATININE FOR GFR 0.83 MG/DL (0.55-1.30); GLOMERULAR FILTRATION RATE > 60.0 (>32); GLUCOSE, FASTING 107 MG/DL (70-100); POTASSIUM SERUM 3.8 MEQ/L (3.5-5.1); SODIUM LEVEL 142 MEQ/L (136-145)
[2020-09-12 20:28] LABS: BASO % 0.4 % (0.0-1.0); EOS # 0.2 10^3/uL (0.0-0.5); EOS % 1.8 % (0.0-3.0); HEMATOCRIT 40.4 % (36.0-47.0); HEMOGLOBIN 12.8 g/dl (12.0-15.5); LYMPH # 2.5 10^3/uL (1.5-5.0); MEAN CORPUSCULAR HEMOGLOBIN 30.4 pg (27.0-33.0); MEAN CORPUSCULAR HGB CONC 31.7 g/dl (32.0-36.5); MONO # 0.5 10^3/uL (0.0-0.8); MONO % 5.9 % (2.0-8.0); NEUTROPHILS # 5.3 10^3/uL (1.5-8.5); NEUTROPHILS % 62.4 % (36.0-66.0); PLATELET COUNT, AUTOMATED 308 10^3/uL (150-450); RED BLOOD COUNT 4.21 10^6/uL (4.00-5.40); WHITE BLOOD COUNT 8.5 10^3/uL (4.0-10.0)
== END ==
PROVIDERS: ATTEND Internal Medicine
DX: R41.89 Other symptoms and signs involving cognitive functions and awareness (principal)
CPT/HCPCS: 80048; 80156; 80175; 85025; G0463

== ENCOUNTER → 2020-09-13 | Outpatient (REF) | payer MEDICARE | PROVIDERS: ATTEND Internal Medicine | DX: R53.83 Other fatigue (principal) ==

== ENCOUNTER → 2020-09-14 | Outpatient (REF) | payer MEDICARE ==
[2020-09-13 13:48] LABS: AMORPHOUS SEDIMENT SMALL (NEGATIVE); APPEARANCE, URINE TURBID (CLEAR); BACTERIA, URINE AUTO 2+ (NEGATIVE); BILIRUBIN, URINE AUTO NEGATIVE (NEGATIVE); BLOOD, URINE BLOOD 1+ (NEGATIVE); COLOR, URINE AMBER (YELLOW); GLUCOSE, URINE (UA) AUTO NEGATIVE (NEGATIVE); KETONE, URINE AUTO TRACE mg/dL (NEGATIVE); LEUKOCYTE ESTERASE, URINE AUTO NEGATIVE (NEGATIVE); NITRITE, URINE AUTO NEGATIVE (NEGATIVE); PROTEIN, URINE AUTO 2+ mg/dL (NEGATIVE); RBC, URINE AUTO 11 /HPF (0-3); SPECIFIC GRAVITY URINE AUTO 1.024 (1.002-1.035); SQUAMOUS EPITHELIAL CELL UR AU 18 /HPF (0-6); TRANSITIONAL EPITHELIAL AUTO 2 /HPF; UROBILINOGEN, URINE AUTO 0.2 mg/dL (0.0-2.0); WBC, URINE AUTO TNTC /HPF (0-3)
== END ==
PROVIDERS: ATTEND Internal Medicine
DX: R53.83 Other fatigue (principal)

== ENCOUNTER → 2020-10-01 | Outpatient (REF) | payer MEDICARE ==
[2020-10-01 12:32] LABS: HEMATOCRIT 37.3 % (36.0-47.0); HEMOGLOBIN 12.1 g/dl (12.0-15.5); MEAN CORPUSCULAR HEMOGLOBIN 30.9 pg (27.0-33.0); MEAN CORPUSCULAR HGB CONC 32.4 g/dl (32.0-36.5); MEAN CORPUSCULAR VOLUME 95.2 fl (80.0-96.0); PLATELET COUNT, AUTOMATED 268 10^3/uL (150-450); RED BLOOD COUNT 3.92 10^6/uL (4.00-5.40); WHITE BLOOD COUNT 8.1 10^3/uL (4.0-10.0)
[2020-10-01 12:49] LABS: BLOOD UREA NITROGEN 22 MG/DL (7-18); CALCIUM LEVEL 9.1 MG/DL (8.8-10.2); CARBON DIOXIDE LEVEL 25 MEQ/L (21-32); CHLORIDE LEVEL 105 MEQ/L (98-107); CREATININE FOR GFR 0.67 MG/DL (0.55-1.30); GLOMERULAR FILTRATION RATE > 60.0 (>32); GLUCOSE, FASTING 96 MG/DL (70-100); POTASSIUM SERUM 4.9 MEQ/L (3.5-5.1); SODIUM LEVEL 138 MEQ/L (136-145)
== END ==
PROVIDERS: ATTEND Internal Medicine
DX: I10 Essential (primary) hypertension (principal)

== ENCOUNTER → 2021-01-02 | Outpatient (REF) | payer MEDICARE ==
[2021-01-02 12:39] LABS: HEMATOCRIT 37.7 % (36.0-47.0); HEMOGLOBIN 11.9 g/dl (12.0-15.5); MEAN CORPUSCULAR HEMOGLOBIN 29.8 pg (27.0-33.0); MEAN CORPUSCULAR HGB CONC 31.6 g/dl (32.0-36.5); MEAN CORPUSCULAR VOLUME 94.5 fl (80.0-96.0); PLATELET COUNT, AUTOMATED 289 10^3/uL (150-450); RED BLOOD COUNT 3.99 10^6/uL (4.00-5.40); WHITE BLOOD COUNT 8.3 10^3/uL (4.0-10.0)
[2021-01-02 13:02] LABS: BLOOD UREA NITROGEN 25 MG/DL (7-18); CALCIUM LEVEL 9.6 MG/DL (8.8-10.2); CARBON DIOXIDE LEVEL 31 MEQ/L (21-32); CHLORIDE LEVEL 103 MEQ/L (98-107); CREATININE FOR GFR 0.79 MG/DL (0.55-1.30); GLOMERULAR FILTRATION RATE > 60.0 (>32); GLUCOSE, FASTING 113 MG/DL (70-100); POTASSIUM SERUM 4.2 MEQ/L (3.5-5.1); SODIUM LEVEL 139 MEQ/L (136-145)
== END ==
PROVIDERS: ATTEND Internal Medicine
DX: I10 Essential (primary) hypertension (principal)

== ENCOUNTER → 2021-02-06 | Outpatient (REF) | payer MEDICARE ==
[2021-02-08 18:07] LABS: LAMOTRIGINE (LAMICTAL) 2.4 ug/mL (2.0-20.0)
== END ==
PROVIDERS: ATTEND Internal Medicine
DX: I10 Essential (primary) hypertension (principal)

== ENCOUNTER → 2021-03-07 | Outpatient (REF) | payer MEDICARE ==
[2021-03-07 15:04] LABS: CLOSTRIDIUM DIFFICILE PCR NEGATIVE (NEGATIVE)
== END ==
PROVIDERS: ATTEND Internal Medicine
DX: A04.72 Enterocolitis due to Clostridium difficile, not specified as recurrent (principal)

== ENCOUNTER → 2021-04-01 | Outpatient (CLI) | payer MEDICARE | PROVIDERS: ATTEND Internal Medicine | DX: L03.032 Cellulitis of left toe (principal); M85.872 Other specified disorders of bone density and structure, left ankle and foot; M77.32 Calcaneal spur, left foot ==

== ENCOUNTER → 2021-04-03 | Outpatient (REF) | payer MEDICARE ==
[2021-04-03 15:48] LABS: HEMATOCRIT 36.6 % (36.0-47.0); HEMOGLOBIN 11.4 g/dl (12.0-15.5); MEAN CORPUSCULAR HEMOGLOBIN 29.8 pg (27.0-33.0); MEAN CORPUSCULAR HGB CONC 31.1 g/dl (32.0-36.5); MEAN CORPUSCULAR VOLUME 95.8 fl (80.0-96.0); PLATELET COUNT, AUTOMATED 260 10^3/uL (150-450); RED BLOOD COUNT 3.82 10^6/uL (4.00-5.40); WHITE BLOOD COUNT 6.2 10^3/uL (4.0-10.0)
[2021-04-03 16:29] LABS: BLOOD UREA NITROGEN 24 MG/DL (7-18); CARBON DIOXIDE LEVEL 31 MEQ/L (21-32); CHLORIDE LEVEL 105 MEQ/L (98-107); CREATININE FOR GFR 0.94 MG/DL (0.55-1.30); GLOMERULAR FILTRATION RATE > 60.0 (>32); GLUCOSE, FASTING 116 MG/DL (70-100); POTASSIUM SERUM 4.2 MEQ/L (3.5-5.1); SODIUM LEVEL 138 MEQ/L (136-145)
== END ==
PROVIDERS: ATTEND Internal Medicine
DX: I10 Essential (primary) hypertension (principal)

== ENCOUNTER → 2021-04-08 | Outpatient (CLI) | payer MEDICARE | LOC: M RAD 11:48 | PROVIDERS: ATTEND Nurse Practitioner Primary Care | DX: R22.42 Localized swelling, mass and lump, left lower limb (principal); I73.9 Peripheral vascular disease, unspecified ==

== ENCOUNTER → 2021-07-03 | Outpatient (REF) | payer MEDICARE ==
[2021-07-03 13:15] LABS: HEMATOCRIT 38.5 % (36.0-47.0); HEMOGLOBIN 12.3 g/dl (12.0-15.5); MEAN CORPUSCULAR HEMOGLOBIN 30.4 pg (27.0-33.0); MEAN CORPUSCULAR HGB CONC 31.9 g/dl (32.0-36.5); MEAN CORPUSCULAR VOLUME 95.3 fl (80.0-96.0); PLATELET COUNT, AUTOMATED 248 10^3/uL (150-450); RED BLOOD COUNT 4.04 10^6/uL (4.00-5.40); WHITE BLOOD COUNT 6.9 10^3/uL (4.0-10.0)
[2021-07-03 13:48] LABS: BLOOD UREA NITROGEN 22 MG/DL (7-18); CALCIUM LEVEL 10.1 MG/DL (8.8-10.2); CARBON DIOXIDE LEVEL 30 MEQ/L (21-32); CHLORIDE LEVEL 104 MEQ/L (98-107); CREATININE FOR GFR 0.88 MG/DL (0.55-1.30); GLOMERULAR FILTRATION RATE > 60.0 (>32); GLUCOSE, FASTING 104 MG/DL (70-100); POTASSIUM SERUM 4.3 MEQ/L (3.5-5.1); SODIUM LEVEL 141 MEQ/L (136-145)
== END ==
PROVIDERS: ATTEND Internal Medicine
DX: I10 Essential (primary) hypertension (principal)

== ENCOUNTER → 2021-08-14 | Outpatient (CLI) | payer MEDICARE ==
[~2021-08-14] MED LIST changes: +BARIUM SULFATE 700 MG TABLET (E-Z-DISK) As Ordered ONE; +E-Z-PAQUE 96% w/w SUSP 176GM BTL As Ordered ONE; +VARIBAR NECTAR 40% w/v 240ML SUSP BTL As Ordered ONE; +VARIBAR PUDDING 40% w/v 230ML TUBE As Ordered ONE
== END ==
LOC: M RAD 10:45
PROVIDERS: ATTEND Internal Medicine
DX: J39.2 Other diseases of pharynx (principal)

== ENCOUNTER → 2021-09-04 | Outpatient (REF) | payer MEDICARE ==
[~2021-09-04] MED LIST changes: -BARIUM SULFATE 700 MG TABLET (E-Z-DISK) As Ordered ONE; -E-Z-PAQUE 96% w/w SUSP 176GM BTL As Ordered ONE; -VARIBAR NECTAR 40% w/v 240ML SUSP BTL As Ordered ONE; -VARIBAR PUDDING 40% w/v 230ML TUBE As Ordered ONE
[2021-09-07 00:08] LABS: LAMOTRIGINE (LAMICTAL) 1.5 ug/mL (2.0-20.0)
== END ==
PROVIDERS: ATTEND Internal Medicine
DX: I10 Essential (primary) hypertension (principal)

== ENCOUNTER → 2021-10-02 | Outpatient (REF) | payer MEDICARE ==
[2021-10-02 11:58] LABS: HEMATOCRIT 37.1 % (36.0-47.0); HEMOGLOBIN 11.9 g/dl (12.0-15.5); MEAN CORPUSCULAR HEMOGLOBIN 30.7 pg (27.0-33.0); MEAN CORPUSCULAR HGB CONC 32.1 g/dl (32.0-36.5); MEAN CORPUSCULAR VOLUME 95.9 fl (80.0-96.0); PLATELET COUNT, AUTOMATED 245 10^3/uL (150-450); RED BLOOD COUNT 3.87 10^6/uL (4.00-5.40); WHITE BLOOD COUNT 7.5 10^3/uL (4.0-10.0)
[2021-10-02 13:51] LABS: BLOOD UREA NITROGEN 19 MG/DL (7-18); CALCIUM LEVEL 9.1 MG/DL (8.8-10.2); CARBON DIOXIDE LEVEL 32 MEQ/L (21-32); CHLORIDE LEVEL 102 MEQ/L (98-107); CREATININE FOR GFR 0.76 MG/DL (0.55-1.30); GLOMERULAR FILTRATION RATE > 60.0 (>32); GLUCOSE, FASTING 123 MG/DL (70-100); POTASSIUM SERUM 4.7 MEQ/L (3.5-5.1); SODIUM LEVEL 138 MEQ/L (136-145)
== END ==
PROVIDERS: ATTEND Internal Medicine
DX: I10 Essential (primary) hypertension (principal)

== ENCOUNTER → 2022-01-08 | Outpatient (REF) | payer MEDICARE ==
[2022-01-08 10:12] LABS: HEMATOCRIT 35.9 % (36.0-47.0); HEMOGLOBIN 11.5 g/dl (12.0-15.5); MEAN CORPUSCULAR HEMOGLOBIN 30.1 pg (27.0-33.0); PLATELET COUNT, AUTOMATED 262 10^3/uL (150-450); RED BLOOD COUNT 3.82 10^6/uL (4.00-5.40); WHITE BLOOD COUNT 7.4 10^3/uL (4.0-10.0)
[2022-01-08 10:54] LABS: BLOOD UREA NITROGEN 30 MG/DL (7-18); CALCIUM LEVEL 9.1 MG/DL (8.8-10.2); CARBON DIOXIDE LEVEL 26 MEQ/L (21-32); CHLORIDE LEVEL 103 MEQ/L (98-107); CREATININE FOR GFR 0.86 MG/DL (0.55-1.30); GLOMERULAR FILTRATION RATE > 60.0 (>32); GLUCOSE, FASTING 99 MG/DL (70-100); POTASSIUM SERUM 5.1 MEQ/L (3.5-5.1); SODIUM LEVEL 139 MEQ/L (136-145)
== END ==
PROVIDERS: ATTEND Internal Medicine
DX: I10 Essential (primary) hypertension (principal)

== ENCOUNTER → 2022-01-25 | Outpatient (REF) ==
[2022-01-25 08:44] LABS: HEMATOCRIT 32.2 % (36.0-47.0); HEMOGLOBIN 10.4 g/dl (12.0-15.5); MEAN CORPUSCULAR HEMOGLOBIN 30.9 pg (27.0-33.0); MEAN CORPUSCULAR HGB CONC 32.3 g/dl (32.0-36.5); MEAN CORPUSCULAR VOLUME 95.5 fl (80.0-96.0); PLATELET COUNT, AUTOMATED 205 10^3/uL (150-450); RED BLOOD COUNT 3.37 10^6/uL (4.00-5.40); WHITE BLOOD COUNT 6.5 10^3/uL (4.0-10.0)
[2022-01-25 09:03] LABS: ALBUMIN 3.3 G/DL (3.2-5.2); ALT/SGPT 11 U/L (7.0-40); BILIRUBIN,TOTAL 0.2 MG/DL (0.3-1.2); BLOOD UREA NITROGEN 40 MG/DL (9-23); CALCIUM LEVEL 8.5 MG/DL (8.3-10.6); CARBON DIOXIDE LEVEL 26 MMOL/L (20-31); CHLORIDE LEVEL 102 MMOL/L (98-107); CREATININE FOR GFR 0.81 MG/DL (0.55-1.30); GLOMERULAR FILTRATION RATE > 60.0 (>32); GLUCOSE, FASTING 105 MG/DL (74-106); POTASSIUM SERUM 4.8 MMOL/L (3.5-5.1); SODIUM LEVEL 137 MMOL/L (136-145); TOTAL PROTEIN 5.9 G/DL (5.7-8.2)
== END ==
LOC: SKLAB4 06:33
PROVIDERS: ATTEND Internal Medicine
DX: R11.2 Nausea with vomiting, unspecified (principal)

== ENCOUNTER → 2022-02-05 | Outpatient (REF) | payer MEDICARE | PROVIDERS: ATTEND Internal Medicine | DX: I10 Essential (primary) hypertension (principal) ==

== ENCOUNTER → 2022-04-29 | Outpatient (REF) | payer MEDICARE | PROVIDERS: ATTEND Nurse Practitioner Family | DX: R05.9 Cough, unspecified (principal) ==

== ENCOUNTER → 2022-04-30 | Outpatient (REF) | payer MEDICARE ==
[2022-04-30 12:40] LABS: HEMOGLOBIN 11.5 g/dl (12.0-15.5); MEAN CORPUSCULAR HEMOGLOBIN 29.7 pg (27.0-33.0); MEAN CORPUSCULAR HGB CONC 31.1 g/dl (32.0-36.5); MEAN CORPUSCULAR VOLUME 95.6 fl (80.0-96.0); PLATELET COUNT, AUTOMATED 210 10^3/uL (150-450); RED BLOOD COUNT 3.87 10^6/uL (4.00-5.40); WHITE BLOOD COUNT 5.7 10^3/uL (4.0-10.0)
[2022-04-30 13:20] LABS: ALBUMIN 3.2 G/DL (3.2-5.2); ALKALINE PHOSPHATASE 171 U/L (46-116); ALT/SGPT 12 U/L (7.0-40); AST/SGOT 16 U/L (<34); BILIRUBIN,TOTAL 0.3 MG/DL (0.3-1.2); BLOOD UREA NITROGEN 22 MG/DL (9-23); CALCIUM LEVEL 8.7 MG/DL (8.3-10.6); CARBON DIOXIDE LEVEL 27 MMOL/L (20-31); CHLORIDE LEVEL 104 MMOL/L (98-107); CREATININE FOR GFR 0.77 MG/DL (0.55-1.30); GLOMERULAR FILTRATION RATE > 60.0 (>32); GLUCOSE, FASTING 135 MG/DL (74-106); POTASSIUM SERUM 4.2 MMOL/L (3.5-5.1); SODIUM LEVEL 141 MMOL/L (136-145); TOTAL PROTEIN 6.4 G/DL (5.7-8.2)
== END ==
PROVIDERS: ATTEND Nurse Practitioner Family
DX: N39.0 Urinary tract infection, site not specified (principal)

== ENCOUNTER → 2022-05-07 | Outpatient (REF) | payer MEDICARE ==
[2022-05-07 10:28] LABS: BASO % 0.3 % (0.0-1.0); EOS # 0.2 10^3/uL (0.0-0.5); EOS % 3.2 % (0.0-3.0); HEMATOCRIT 33.9 % (36.0-47.0); HEMOGLOBIN 10.8 g/dl (12.0-15.5); LYMPH % 32.9 % (24.0-44.0); MEAN CORPUSCULAR HGB CONC 31.9 g/dl (32.0-36.5); MEAN CORPUSCULAR VOLUME 94.2 fl (80.0-96.0); MONO # 0.4 10^3/uL (0.0-0.8); MONO % 6.1 % (2.0-8.0); NEUTROPHILS # 3.4 10^3/uL (1.5-8.5); PLATELET COUNT, AUTOMATED 258 10^3/uL (150-450)
[2022-05-07 11:52] LABS: ALBUMIN 3.1 G/DL (3.2-5.2); BILIRUBIN,TOTAL 0.3 MG/DL (0.3-1.2); CALCIUM LEVEL 8.7 MG/DL (8.3-10.6); CREATININE FOR GFR 0.97 MG/DL (0.55-1.30); GLOMERULAR FILTRATION RATE 58.4 (>32); POTASSIUM SERUM 4.3 MMOL/L (3.5-5.1)
== END ==
PROVIDERS: ATTEND Nurse Practitioner Family
DX: U07.1 COVID-19 (principal); Z79.899 Other long term (current) drug therapy

== ENCOUNTER → 2022-05-27 | Outpatient (REF) | payer MEDICARE ==
[2022-05-27 11:30] LABS: BASO % 0.3 % (0.0-1.0); EOS # 0.2 10^3/uL (0.0-0.5); EOS % 2.7 % (0.0-3.0); HEMOGLOBIN 11.9 g/dl (12.0-15.5); LYMPH # 2.7 10^3/uL (1.5-5.0); LYMPH % 34.4 % (24.0-44.0); MEAN CORPUSCULAR HEMOGLOBIN 30.2 pg (27.0-33.0); MEAN CORPUSCULAR HGB CONC 32.2 g/dl (32.0-36.5); MEAN CORPUSCULAR VOLUME 93.9 fl (80.0-96.0); MONO # 0.5 10^3/uL (0.0-0.8); MONO % 6.8 % (2.0-8.0); NEUTROPHILS # 4.4 10^3/uL (1.5-8.5); NEUTROPHILS % 55.4 % (36.0-66.0); PLATELET COUNT, AUTOMATED 243 10^3/uL (150-450); RED BLOOD COUNT 3.94 10^6/uL (4.00-5.40); WHITE BLOOD COUNT 7.9 10^3/uL (4.0-10.0)
[2022-05-27 12:10] LABS: ALBUMIN 3.5 G/DL (3.2-5.2); ALKALINE PHOSPHATASE 174 U/L (46-116); ALT/SGPT 11 U/L (7.0-40); AST/SGOT 14 U/L (<34); BILIRUBIN,TOTAL 0.2 MG/DL (0.3-1.2); BLOOD UREA NITROGEN 28 MG/DL (9-23); CALCIUM LEVEL 9.1 MG/DL (8.3-10.6); CARBON DIOXIDE LEVEL 25 MMOL/L (20-31); CHLORIDE LEVEL 105 MMOL/L (98-107); CREATININE FOR GFR 0.75 MG/DL (0.55-1.30); GLOMERULAR FILTRATION RATE > 60.0 (>32); GLUCOSE, FASTING 122 MG/DL (74-106); POTASSIUM SERUM 5.2 MMOL/L (3.5-5.1); SODIUM LEVEL 137 MMOL/L (136-145); TOTAL PROTEIN 6.7 G/DL (5.7-8.2)
== END ==
PROVIDERS: ATTEND Nurse Practitioner Family
DX: I11.9 Hypertensive heart disease without heart failure (principal); R53.83 Other fatigue

== ENCOUNTER → 2022-05-29 | Outpatient (REF) | payer MEDICARE ==
[2022-06-03 08:42] LABS: LAMOTRIGINE (LAMICTAL) 1.5 ug/mL (2.0-20.0)
== END ==
PROVIDERS: ATTEND Nurse Practitioner Family
DX: Z51.81 Encounter for therapeutic drug level monitoring (principal); G40.909 Epilepsy, unspecified, not intractable, without status epilepticus

== ENCOUNTER → 2022-07-04 | Outpatient (REF) | payer MEDICARE ==
[2022-07-04 10:14] LABS: BLOOD UREA NITROGEN 23 MG/DL (9-23); CALCIUM LEVEL 8.6 MG/DL (8.3-10.6); CARBON DIOXIDE LEVEL 31 MMOL/L (20-31); CHLORIDE LEVEL 105 MMOL/L (98-107); CREATININE FOR GFR 0.93 MG/DL (0.55-1.30); GLOMERULAR FILTRATION RATE > 60.0 (>32); GLUCOSE, FASTING 113 MG/DL (74-106); POTASSIUM SERUM 4.2 MMOL/L (3.5-5.1); SODIUM LEVEL 142 MMOL/L (136-145)
== END ==
PROVIDERS: ATTEND Nurse Practitioner Family
DX: I11.9 Hypertensive heart disease without heart failure (principal)

== ENCOUNTER 2022-07-30 10:30 | Inpatient (IN) | payer MEDICARE ==
[~2022-07-30] VITALS: Ht 160 cm; Wt 98.5 kg
[2022-07-30 11:38] LABS: VENOUS BASE EXCESS -0.2 (-2.0-2.0); VENOUS HCO3 26.2 MMOL/L (23.0-27.0); VENOUS O2 SATURATION 84.8 % (60.0-80.0); VENOUS PARTIAL PRESSURE CO2 50.1 mmHg (38.0-50.0); VENOUS PARTIAL PRESSURE O2 50.8 mmHg (30.0-50.0); VENOUS PH 7.337 UNITS (7.330-7.430); VENOUS TOTAL CO2 27.8 MMOL/L (24.0-28.0)
[2022-07-30 11:38] LABS: BASO % 0.3 % (0.0-1.0); EOS # 0.1 10^3/uL (0.0-0.5); EOS % 1.3 % (0.0-3.0); HEMATOCRIT 39.8 % (36.0-47.0); HEMOGLOBIN 12.5 g/dl (12.0-15.5); LYMPH # 1.5 10^3/uL (1.5-5.0); LYMPH % 21.3 % (24.0-44.0); MEAN CORPUSCULAR HEMOGLOBIN 30.5 pg (27.0-33.0); MEAN CORPUSCULAR HGB CONC 31.4 g/dl (32.0-36.5); MEAN CORPUSCULAR VOLUME 97.1 fl (80.0-96.0); MONO # 0.5 10^3/uL (0.0-0.8); MONO % 6.3 % (2.0-8.0); NEUTROPHILS # 5.1 10^3/uL (1.5-8.5); NEUTROPHILS % 70.7 % (36.0-66.0); PLATELET COUNT, AUTOMATED 215 10^3/uL (150-450); WHITE BLOOD COUNT 7.2 10^3/uL (4.0-10.0)
[2022-07-30 11:49] LABS: INR 1.08; PROTHROMBIN TIME 14.2 SECONDS (12.5-14.5)
[2022-07-30] MEDS ORDERED: ISOVUE-370 76% 100ML VIAL As Ordered ONE (11:51)
[2022-07-30 12:02] LABS: ALBUMIN 3.7 G/DL (3.2-5.2); ALKALINE PHOSPHATASE 205 U/L (46-116); ALT/SGPT 41 U/L (7.0-40); AST/SGOT 33 U/L (<34); BILIRUBIN,DIRECT 0.2 MG/DL (<0.4); BILIRUBIN,TOTAL 0.6 MG/DL (0.3-1.2); BLOOD UREA NITROGEN 19 MG/DL (9-23); CALCIUM LEVEL 8.4 MG/DL (8.3-10.6); CARBON DIOXIDE LEVEL 26 MMOL/L (20-31); CHLORIDE LEVEL 110 MMOL/L (98-107); CK-MB VALUE MASS < 1.0 NG/ML (<3.6); CPK CREATINE PHOSPHOKINASE 27 U/L (34-145); CREATININE FOR GFR 0.78 MG/DL (0.55-1.30); GLOMERULAR FILTRATION RATE > 60.0 (>32); GLUCOSE, FASTING 100 MG/DL (74-106); POTASSIUM SERUM 3.9 MMOL/L (3.5-5.1); SODIUM LEVEL 147 MMOL/L (136-145); TOTAL PROTEIN 6.8 G/DL (5.7-8.2)
[2022-07-30 12:04] LABS: THYROID STIMULATING HORMONE 0.754 uIU/ML (0.55-4.78)
[2022-07-30 13:16] LABS: OSMOLALITY SERUM 312 MOSM/KG (280-301)
[2022-07-30] MEDS ORDERED: cefTRIAXone SOD 1 GM in D5W MINI-BAG PLUS 50 ML IV ONE (14:15)
[2022-07-30 16:50] VITALS: BP 165/92
[2022-07-30 20:40] VITALS: BP 141/70
[2022-07-31] MEDS ORDERED: OYST500T92 PO (01:15)
[2022-07-31] MEDS ORDERED: ASPI-655 PO (01:15)
[2022-07-31] MEDS ORDERED: [UNRECOGNIZED DRUG - CODE] EXT (01:15)
[2022-07-31] MEDS ORDERED: CLOP75TA2 PO (01:15)
[2022-07-31] MEDS ORDERED: BISA1TAB PO (01:15)
[2022-07-31] MEDS ORDERED: VANI1CRE5 EXT (01:15)
[2022-07-31] MEDS ORDERED: FURO20TA2 PO (01:15)
[2022-07-31] MEDS ORDERED: LISI2.5T9 PO (01:15)
[2022-07-31] MEDS ORDERED: PANT20TA6 PO (01:15)
[2022-07-31] MEDS ORDERED: PROL60SO SC (01:15)
[2022-07-31] MEDS ORDERED: ACET650T61 PO (01:33)
[2022-07-31] MEDS ORDERED: PRESCAP PO (01:33)
[2022-07-31] MEDS ORDERED: BACI500O8 TOP (01:33)
[2022-07-31] MEDS ORDERED: SENN1TAB41 PO (01:33)
[2022-07-31] MEDS ORDERED: MILKSUS3 PO (01:33)
[2022-07-31] MEDS ORDERED: GABA-1171 PO (01:33)
[2022-07-31] MEDS ORDERED: HOME MED LIST COMPLETE! XX SCH (01:35)
[2022-07-31] MEDS ORDERED: URSO300C3 PO (01:35)
[2022-07-31 05:40] VITALS: BP 105/60
[2022-07-31 05:56] LABS: HEMATOCRIT 36.3 % (36.0-47.0); HEMOGLOBIN 11.6 g/dl (12.0-15.5); MEAN CORPUSCULAR HEMOGLOBIN 30.9 pg (27.0-33.0); MEAN CORPUSCULAR VOLUME 96.5 fl (80.0-96.0); PLATELET COUNT, AUTOMATED 211 10^3/uL (150-450); RED BLOOD COUNT 3.76 10^6/uL (4.00-5.40); WHITE BLOOD COUNT 6.9 10^3/uL (4.0-10.0)
[2022-07-31 06:19] LABS: BLOOD UREA NITROGEN 17 MG/DL (9-23); CALCIUM LEVEL 7.4 MG/DL (8.3-10.6); CARBON DIOXIDE LEVEL 27 MMOL/L (20-31); CHLORIDE LEVEL 110 MMOL/L (98-107); GLOMERULAR FILTRATION RATE > 60.0 (>32); GLUCOSE, FASTING 106 MG/DL (74-106); MAGNESIUM LEVEL 2.2 MG/DL (1.8-2.4); POTASSIUM SERUM 3.7 MMOL/L (3.5-5.1); SODIUM LEVEL 145 MMOL/L (136-145)
[2022-07-31] MEDS ORDERED: BISACODYL 10MG SUPP PR PRN (06:55)
[2022-07-31] MEDS ORDERED: FLEET ENEMA PR PRN (06:55)
[2022-07-31] MEDS ORDERED: ACETAMINOPHEN TAB 650MG DOSE (2X325MG) PO PRN (06:55)
[2022-07-31] MEDS ORDERED: MOM 30ML SUSPENSION UDC PO PRN (06:55)
[2022-07-31] MEDS ORDERED: ASPIRIN ENTERIC 325MG TAB PO SCH (09:00)
[2022-07-31] MEDS ORDERED: PANTOPRAZOLE 20 MG TAB PO SCH (09:00)
[2022-07-31] MEDS ORDERED: ASPIRIN 81MG ENTERIC TABLET PO SCH (09:00)
[2022-07-31] MEDS ORDERED: carBAMazepine XR 200 MG TAB PO SCH (09:00)
[2022-07-31] MEDS: lamoTRIgine 100MG TAB PO SCH (09:06)
[2022-07-31] MEDS: SENOKOT S TAB PO SCH ×2 (09:10→21:01)
[2022-07-31] MEDS: CLOPIDOGREL 75 MG TAB PO SCH (09:10)
[2022-07-31] MEDS: ursodioL 300MG CAP PO SCH ×2 (09:10→21:00)
[2022-07-31] MEDS: BISACODYL 5MG TAB PO SCH (09:10)
[2022-07-31] MEDS: FUROSEMIDE 20 MG TAB PO SCH (09:12)
[2022-07-31] MEDS: ATORVASTATIN 20 MG TAB PO SCH (09:12)
[2022-07-31] MEDS: GABAPENTIN 100 MG CAP PO SCH ×2 (09:12→21:00)
[2022-07-31] MEDS: BACITRACIN OINTMENT 30GM TUBE TOP SCH (09:12)
[2022-07-31] MEDS: LISINOPRIL *2.5 MG* TAB PO SCH (09:13)
[2022-07-31] MEDS: VANICREAM MOISTURIZING SKIN CREAM 113GM TUBE TOP SCH (09:13)
[2022-07-31] MEDS ORDERED: ISOVUE-370 76% 100ML VIAL As Ordered ONE (11:57)
[2022-07-31 14:00] VITALS: BP 112/65
[2022-07-31] MEDS ORDERED: cefTRIAXone SOD 1 GM in D5W MINI-BAG PLUS 50 ML IV SCH (14:00)
[2022-07-31] MEDS ORDERED: RIVAROXABAN 10MG TAB (XARELTO) PO SCH (18:00)
[2022-07-31] MEDS ORDERED: PRIMIDONE 250 MG TAB PO SCH (21:00)
[2022-07-31] MEDS: carBAMazepine 100MG 5ML SUSP ORAL SYRINGE *DRAW UP EXACT DOSE PO SCH (21:08)
[2022-07-31 21:12] VITALS: BP 111/62
[2022-08-01 05:20] VITALS: BP 111/63
[2022-08-01 06:56] LABS: BLOOD UREA NITROGEN 23 MG/DL (9-23); CALCIUM LEVEL 7.5 MG/DL (8.3-10.6); CARBON DIOXIDE LEVEL 26 MMOL/L (20-31); CHLORIDE LEVEL 106 MMOL/L (98-107); CREATININE FOR GFR 0.84 MG/DL (0.55-1.30); GLOMERULAR FILTRATION RATE > 60.0 (>32); GLUCOSE, FASTING 108 MG/DL (74-106); POTASSIUM SERUM 3.7 MMOL/L (3.5-5.1); SODIUM LEVEL 140 MMOL/L (136-145)
[2022-08-01] MEDS ORDERED: ATOR1TAB21 PO (08:06)
[2022-08-01] MEDS: SENOKOT S TAB PO SCH (08:23)
[2022-08-01 08:24] VITALS: BP 113/61
[2022-08-01] MEDS: ursodioL 300MG CAP PO SCH (08:24)
[2022-08-01] MEDS: LISINOPRIL *2.5 MG* TAB PO SCH (08:24)
[2022-08-01] MEDS: BISACODYL 5MG TAB PO SCH (08:24)
[2022-08-01] MEDS: lamoTRIgine 100MG TAB PO SCH (08:24)
[2022-08-01] MEDS: CLOPIDOGREL 75 MG TAB PO SCH (08:24)
[2022-08-01] MEDS: ATORVASTATIN 20 MG TAB PO SCH (08:24)
[2022-08-01] MEDS: VANICREAM MOISTURIZING SKIN CREAM 113GM TUBE TOP SCH (08:25)
[2022-08-01] MEDS: FUROSEMIDE 20 MG TAB PO SCH (08:25)
[2022-08-01] MEDS: BACITRACIN OINTMENT 30GM TUBE TOP SCH (08:25)
[2022-08-01] MEDS: GABAPENTIN 100 MG CAP PO SCH (08:25)
[2022-08-01] MEDS ORDERED: ASPIRIN 81MG ENTERIC TABLET PO SCH (09:00)
[2022-08-01] MEDS ORDERED: OMEPRAZOLE/SODIUM BICARB 20-840MG 10ML ORAL SYRINGE GT SCH (09:00)
[2022-08-01] MEDS ORDERED: ASPIRIN 81MG CHEW TABLET PO SCH (09:00)
[2022-08-01] MEDS: carBAMazepine 100MG 5ML SUSP ORAL SYRINGE *DRAW UP EXACT DOSE PO SCH (09:21)
[2022-08-01 14:00] VITALS: BP 122/69
== END 2022-08-01 14:02 | DRG 689 ==
LOC: EDBD 10:30 → M ED 10:30 → M ED INP 14:22 → M MSPAV 16:55
PROVIDERS: ADMIT Internal Medicine; ATTEND Internal Medicine
DX: N39.0 Urinary tract infection, site not specified (principal); G93.41 Metabolic encephalopathy; G45.9 Transient cerebral ischemic attack, unspecified; G40.909 Epilepsy, unspecified, not intractable, without status epilepticus; E66.01 Morbid (severe) obesity due to excess calories; E78.5 Hyperlipidemia, unspecified; K21.9 Gastro-esophageal reflux disease without esophagitis; E55.9 Vitamin D deficiency, unspecified; M81.0 Age-related osteoporosis without current pathological fracture; M51.37 Other intervertebral disc degeneration, lumbosacral region; Z86.73 Personal history of transient ischemic attack (TIA), and cerebral infarction without residual deficits; Z85.828 Personal history of other malignant neoplasm of skin; Z87.891 Personal history of nicotine dependence; K59.09 Other constipation; I10 Essential (primary) hypertension; Z66 Do not resuscitate; Z79.82 Long term (current) use of aspirin; Z79.899 Other long term (current) drug therapy; Z88.8 Allergy status to other drugs, medicaments and biological substances; Z91.048 Other nonmedicinal substance allergy status; G25.81 Restless legs syndrome

== ENCOUNTER → 2022-08-04 | Outpatient (REF) | payer MEDICARE ==
[~2022-08-04] MED LIST changes: +ACET650T61 PO; +ASPI-655 PO; +ATOR1TAB21 PO; +BACI500O8 TOP; +BISA1TAB PO; +FURO20TA2 PO; +GABA-1171 PO; +LISI2.5T9 PO; +MILKSUS3 PO; +OYST500T92 PO; +PANT20TA6 PO; +PRESCAP PO; +PROL60SO SC; +SENN1TAB41 PO; +URSO300C3 PO; +VANI1CRE5 EXT; +[UNRECOGNIZED DRUG - CODE] EXT
[2022-08-04 12:05] LABS: BLOOD UREA NITROGEN 22 MG/DL (9-23); CALCIUM LEVEL 7.9 MG/DL (8.3-10.6); CARBON DIOXIDE LEVEL 29 MMOL/L (20-31); CHLORIDE LEVEL 100 MMOL/L (98-107); CREATININE FOR GFR 0.81 MG/DL (0.55-1.30); GLOMERULAR FILTRATION RATE > 60.0 (>32); GLUCOSE, FASTING 117 MG/DL (74-106); POTASSIUM SERUM 4.2 MMOL/L (3.5-5.1); SODIUM LEVEL 135 MMOL/L (136-145)
== END ==
PROVIDERS: ATTEND Nurse Practitioner Family
DX: I50.9 Heart failure, unspecified (principal)

== ENCOUNTER → 2022-08-14 | Outpatient (REF) | payer MEDICARE ==
[~2022-08-14] MED LIST changes: +SENN-111 PO; -SENN18TA PO
== END ==
PROVIDERS: ATTEND Internal Medicine
DX: R09.89 Other specified symptoms and signs involving the circulatory and respiratory systems (principal)

== ENCOUNTER → 2022-08-22 | Outpatient (REF) | payer MEDICARE ==
[2022-08-22 09:33] LABS: BLOOD UREA NITROGEN 16 MG/DL (9-23); CALCIUM LEVEL 8.2 MG/DL (8.3-10.6); CARBON DIOXIDE LEVEL 30 MMOL/L (20-31); CHLORIDE LEVEL 105 MMOL/L (98-107); CREATININE FOR GFR 0.61 MG/DL (0.55-1.30); GLOMERULAR FILTRATION RATE > 60.0 (>32); GLUCOSE, FASTING 100 MG/DL (74-106); POTASSIUM SERUM 4.1 MMOL/L (3.5-5.1); SODIUM LEVEL 140 MMOL/L (136-145)
== END ==
PROVIDERS: ATTEND Internal Medicine
DX: I50.9 Heart failure, unspecified (principal)

== ENCOUNTER → 2022-09-03 | Outpatient (REF) | payer MEDICARE | PROVIDERS: ATTEND Internal Medicine | DX: G40.909 Epilepsy, unspecified, not intractable, without status epilepticus (principal) ==

== ENCOUNTER → 2022-09-24 | Outpatient (REF) | payer MEDICARE ==
[2022-09-24 08:57] LABS: CHOLESTEROL RISK RATIO 3.33 (<5)
[2022-09-24 08:59] LABS: BLOOD UREA NITROGEN 33 MG/DL (9-23); CARBON DIOXIDE LEVEL 29 MMOL/L (20-31); CHLORIDE LEVEL 101 MMOL/L (98-107); CREATININE FOR GFR 0.91 MG/DL (0.55-1.30); GLOMERULAR FILTRATION RATE > 60.0 (>32); GLUCOSE, FASTING 109 MG/DL (74-106); POTASSIUM SERUM 4.7 MMOL/L (3.5-5.1); SODIUM LEVEL 141 MMOL/L (136-145)
== END ==
PROVIDERS: ATTEND Nurse Practitioner Family
DX: I50.9 Heart failure, unspecified (principal)

== ENCOUNTER → 2022-09-29 | Outpatient (REF) | payer MEDICARE ==
[2022-09-29 17:26] LABS: ALBUMIN 3.7 G/DL (3.2-5.2); ALKALINE PHOSPHATASE 201 U/L (46-116); ALT/SGPT 12 U/L (7.0-40); AST/SGOT < 8 U/L (<34); BILIRUBIN,TOTAL 0.2 MG/DL (0.3-1.2); BLOOD UREA NITROGEN 26 MG/DL (9-23); CALCIUM LEVEL 8.7 MG/DL (8.3-10.6); CARBON DIOXIDE LEVEL 29 MMOL/L (20-31); CHLORIDE LEVEL 99 MMOL/L (98-107); CREATININE FOR GFR 0.63 MG/DL (0.55-1.30); GLOMERULAR FILTRATION RATE > 60.0 (>32); GLUCOSE, FASTING 119 MG/DL (74-106); SODIUM LEVEL 136 MMOL/L (136-145); TOTAL PROTEIN 6.8 G/DL (5.7-8.2)
[2022-09-29 17:29] LABS: BASO % 0.4 % (0.0-1.0); EOS # 0.2 10^3/uL (0.0-0.5); EOS % 2.2 % (0.0-3.0); HEMATOCRIT 35.3 % (36.0-47.0); HEMOGLOBIN 11.3 g/dl (12.0-15.5); LYMPH % 29.9 % (24.0-44.0); MEAN CORPUSCULAR HEMOGLOBIN 30.8 pg (27.0-33.0); MEAN CORPUSCULAR VOLUME 96.2 fl (80.0-96.0); MONO # 0.5 10^3/uL (0.0-0.8); MONO % 7.1 % (2.0-8.0); NEUTROPHILS # 4.1 10^3/uL (1.5-8.5); NEUTROPHILS % 60.3 % (36.0-66.0); PLATELET COUNT, AUTOMATED 250 10^3/uL (150-450); RED BLOOD COUNT 3.67 10^6/uL (4.00-5.40); WHITE BLOOD COUNT 6.8 10^3/uL (4.0-10.0)
== END ==
PROVIDERS: ATTEND Nurse Practitioner Family
DX: I50.9 Heart failure, unspecified (principal); I51.7 Cardiomegaly; I77.819 Aortic ectasia, unspecified site; R68.83 Chills (without fever); R06.2 Wheezing

== ENCOUNTER → 2022-09-29 | Outpatient (REF) | payer MEDICARE | PROVIDERS: ATTEND Internal Medicine | DX: I51.7 Cardiomegaly (principal); I77.819 Aortic ectasia, unspecified site; R68.83 Chills (without fever); R06.2 Wheezing ==

== ENCOUNTER → 2022-10-06 | Outpatient (REF) | payer MEDICARE ==
[2022-10-06 08:14] LABS: HEMATOCRIT 34.2 % (36.0-47.0); HEMOGLOBIN 10.9 g/dl (12.0-15.5); MEAN CORPUSCULAR HEMOGLOBIN 30.5 pg (27.0-33.0); MEAN CORPUSCULAR HGB CONC 31.9 g/dl (32.0-36.5); MEAN CORPUSCULAR VOLUME 95.8 fl (80.0-96.0); PLATELET COUNT, AUTOMATED 237 10^3/uL (150-450); RED BLOOD COUNT 3.57 10^6/uL (4.00-5.40); WHITE BLOOD COUNT 8.4 10^3/uL (4.0-10.0)
[2022-10-06 08:53] LABS: BLOOD UREA NITROGEN 26 MG/DL (9-23); CALCIUM LEVEL 9.3 MG/DL (8.3-10.6); CARBON DIOXIDE LEVEL 28 MMOL/L (20-31); CHLORIDE LEVEL 104 MMOL/L (98-107); CREATININE FOR GFR 0.71 MG/DL (0.55-1.30); GLOMERULAR FILTRATION RATE > 60.0 (>32); GLUCOSE, FASTING 115 MG/DL (74-106); POTASSIUM SERUM 4.4 MMOL/L (3.5-5.1); SODIUM LEVEL 141 MMOL/L (136-145)
[2022-10-06 08:54] LABS: THYROID STIMULATING HORMONE 1.758 uIU/ML (0.55-4.78)
== END ==
PROVIDERS: ATTEND Internal Medicine
DX: I11.9 Hypertensive heart disease without heart failure (principal); Z79.899 Other long term (current) drug therapy

== ENCOUNTER → 2022-10-08 | Outpatient (REF) | payer MEDICARE | PROVIDERS: ATTEND Nurse Practitioner Family | DX: D64.9 Anemia, unspecified (principal) ==

== ENCOUNTER → 2022-10-20 | Outpatient (REF) | payer MEDICARE ==
[2022-10-20 08:25] LABS: HEMATOCRIT 36.5 % (36.0-47.0); HEMOGLOBIN 11.7 g/dl (12.0-15.5); MEAN CORPUSCULAR HGB CONC 32.1 g/dl (32.0-36.5); MEAN CORPUSCULAR VOLUME 96.6 fl (80.0-96.0); PLATELET COUNT, AUTOMATED 247 10^3/uL (150-450); RED BLOOD COUNT 3.78 10^6/uL (4.00-5.40); WHITE BLOOD COUNT 7.6 10^3/uL (4.0-10.0)
[2022-10-20 08:47] LABS: PERCENT SATURATION 19.1 % (13.2-45.0)
[2022-10-20 08:49] LABS: FERRITIN 47.1 NG/ML (7.3-270.7)
== END ==
PROVIDERS: ATTEND Nurse Practitioner Family
DX: D64.9 Anemia, unspecified (principal)

== ENCOUNTER → 2023-01-05 | Outpatient (REF) | payer MEDICARE ==
[2023-01-05 11:28] LABS: HEMOGLOBIN 11.5 g/dl (12.0-15.5); MEAN CORPUSCULAR HEMOGLOBIN 31.2 pg (27.0-33.0); MEAN CORPUSCULAR HGB CONC 31.9 g/dl (32.0-36.5); MEAN CORPUSCULAR VOLUME 97.6 fl (80.0-96.0); PLATELET COUNT, AUTOMATED 245 10^3/uL (150-450); RED BLOOD COUNT 3.69 10^6/uL (4.00-5.40); WHITE BLOOD COUNT 6.8 10^3/uL (4.0-10.0)
[2023-01-05 11:55] LABS: BLOOD UREA NITROGEN 47 MG/DL (9-23); CALCIUM LEVEL 9.1 MG/DL (8.3-10.6); CARBON DIOXIDE LEVEL 31 MMOL/L (20-31); CHLORIDE LEVEL 99 MMOL/L (98-107); CREATININE FOR GFR 0.91 MG/DL (0.55-1.30); GLOMERULAR FILTRATION RATE > 60.0 (>32); GLUCOSE, FASTING 130 MG/DL (74-106); POTASSIUM SERUM 4.1 MMOL/L (3.5-5.1); SODIUM LEVEL 139 MMOL/L (136-145)
== END ==
PROVIDERS: ATTEND Nurse Practitioner Family
DX: I11.9 Hypertensive heart disease without heart failure (principal)

== ENCOUNTER → 2023-02-25 | Outpatient (REF) | payer MEDICARE ==
[2023-02-25 18:13] LABS: APPEARANCE, URINE CLOUDY (CLEAR); BACTERIA, URINE AUTO 1+ (NEGATIVE); BASO % 0.3 % (0.0-1.0); BILIRUBIN, URINE AUTO NEGATIVE (NEGATIVE); BLOOD, URINE BLOOD NEGATIVE (NEGATIVE); COLOR, URINE YELLOW (YELLOW); EOS # 0.2 10^3/uL (0.0-0.5); EOS % 1.7 % (0.0-3.0); GLUCOSE, URINE (UA) AUTO NEGATIVE (NEGATIVE); HEMATOCRIT 33.6 % (36.0-47.0); HEMOGLOBIN 10.8 g/dl (12.0-15.5); KETONE, URINE AUTO NEGATIVE (NEGATIVE); LEUKOCYTE ESTERASE, URINE AUTO 3+ (NEGATIVE); LYMPH # 1.7 10^3/uL (1.5-5.0); LYMPH % 16.7 % (24.0-44.0); MEAN CORPUSCULAR HEMOGLOBIN 31.7 pg (27.0-33.0); MEAN CORPUSCULAR HGB CONC 32.1 g/dl (32.0-36.5); MEAN CORPUSCULAR VOLUME 98.5 fl (80.0-96.0); MONO # 0.7 10^3/uL (0.0-0.8); MONO % 6.8 % (2.0-8.0); MUCUS, URINE SMALL (NEGATIVE); NEUTROPHILS # 7.7 10^3/uL (1.5-8.5); NEUTROPHILS % 74.3 % (36.0-66.0); NITRITE, URINE AUTO NEGATIVE (NEGATIVE); PLATELET COUNT, AUTOMATED 269 10^3/uL (150-450); PROTEIN, URINE AUTO 1+ mg/dL (NEGATIVE); RBC, URINE AUTO 4 /HPF (0-3); RED BLOOD COUNT 3.41 10^6/uL (4.00-5.40); SPECIFIC GRAVITY URINE AUTO 1.012 (1.002-1.035); SQUAMOUS EPITHELIAL CELL UR AU 8 /HPF (0-6); UROBILINOGEN, URINE AUTO 0.2 mg/dL (0.0-2.0); WBC, URINE AUTO TNTC /HPF (0-3); WHITE BLOOD COUNT 10.4 10^3/uL (4.0-10.0)
[2023-02-25 18:49] LABS: BLOOD UREA NITROGEN 35 MG/DL (9-23); CALCIUM LEVEL 7.8 MG/DL (8.3-10.6); CARBON DIOXIDE LEVEL 24 MMOL/L (20-31); CHLORIDE LEVEL 105 MMOL/L (98-107); CREATININE FOR GFR 0.77 MG/DL (0.55-1.30); GLOMERULAR FILTRATION RATE > 60.0 (>32); GLUCOSE, FASTING 110 MG/DL (74-106); POTASSIUM SERUM 4.3 MMOL/L (3.5-5.1); SODIUM LEVEL 140 MMOL/L (136-145)
== END ==
PROVIDERS: ATTEND Nurse Practitioner Family
DX: M54.9 Dorsalgia, unspecified (principal)

== ENCOUNTER → 2023-02-27 | Outpatient (REF) | payer MEDICARE | PROVIDERS: ATTEND Nurse Practitioner Family | DX: N39.0 Urinary tract infection, site not specified (principal); Z53.8 Procedure and treatment not carried out for other reasons ==

== ENCOUNTER → 2023-03-11 | Outpatient (REF) | payer MEDICARE | PROVIDERS: ATTEND Internal Medicine | DX: G40.909 Epilepsy, unspecified, not intractable, without status epilepticus (principal) ==

== ENCOUNTER → 2023-04-06 | Outpatient (REF) | payer MEDICARE ==
[2023-04-06 11:03] LABS: HEMATOCRIT 33.3 % (36.0-47.0); HEMOGLOBIN 10.6 g/dl (12.0-15.5); MEAN CORPUSCULAR HEMOGLOBIN 30.2 pg (27.0-33.0); MEAN CORPUSCULAR HGB CONC 31.8 g/dl (32.0-36.5); MEAN CORPUSCULAR VOLUME 94.9 fl (80.0-96.0); PLATELET COUNT, AUTOMATED 247 10^3/uL (150-450); RED BLOOD COUNT 3.51 10^6/uL (4.00-5.40); WHITE BLOOD COUNT 7.1 10^3/uL (4.0-10.0)
[2023-04-06 11:27] LABS: BLOOD UREA NITROGEN 17 MG/DL (9-23); CALCIUM LEVEL 8.5 MG/DL (8.3-10.6); CARBON DIOXIDE LEVEL 25 MMOL/L (20-31); CHLORIDE LEVEL 109 MMOL/L (98-107); CREATININE FOR GFR 0.74 MG/DL (0.55-1.30); GLOMERULAR FILTRATION RATE > 60.0 (>32); GLUCOSE, FASTING 123 MG/DL (74-106); POTASSIUM SERUM 3.8 MMOL/L (3.5-5.1); SODIUM LEVEL 142 MMOL/L (136-145)
== END ==
PROVIDERS: ATTEND Internal Medicine
DX: I11.0 Hypertensive heart disease with heart failure (principal); I50.9 Heart failure, unspecified

== ENCOUNTER → 2023-04-29 | Outpatient (CLI) | payer MEDICARE ==
[~2023-04-29] MED LIST changes: +BARIUM SULFATE 700 MG TABLET (E-Z-DISK) As Ordered ONE; +E-Z-PAQUE 96% w/w SUSP 176GM BTL As Ordered ONE; +VARIBAR NECTAR 40% w/v 240ML SUSP BTL As Ordered ONE; +VARIBAR PUDDING 40% w/v 230ML TUBE As Ordered ONE
== END ==
LOC: M RAD 11:30
PROVIDERS: ATTEND Internal Medicine
DX: R13.10 Dysphagia, unspecified (principal)

== ENCOUNTER → 2023-07-08 | Outpatient (REF) | payer MEDICARE ==
[~2023-07-08] MED LIST changes: -BARIUM SULFATE 700 MG TABLET (E-Z-DISK) As Ordered ONE; -E-Z-PAQUE 96% w/w SUSP 176GM BTL As Ordered ONE; -PROC25SU24 PR; +PROC25SU27 PR; -SENN1TAB41 PO; +SENN1TAB85 PO; -VARIBAR NECTAR 40% w/v 240ML SUSP BTL As Ordered ONE; -VARIBAR PUDDING 40% w/v 230ML TUBE As Ordered ONE
[2023-07-08 10:45] LABS: HEMATOCRIT 34.9 % (36.0-47.0); MEAN CORPUSCULAR HEMOGLOBIN 28.9 pg (27.0-33.0); MEAN CORPUSCULAR HGB CONC 31.5 g/dl (32.0-36.5); MEAN CORPUSCULAR VOLUME 91.6 fl (80.0-96.0); PLATELET COUNT, AUTOMATED 207 10^3/uL (150-450); RED BLOOD COUNT 3.81 10^6/uL (4.00-5.40); WHITE BLOOD COUNT 7.5 10^3/uL (4.0-10.0)
[2023-07-08 11:12] LABS: BLOOD UREA NITROGEN 17 MG/DL (9-23); CALCIUM LEVEL 8.5 MG/DL (8.3-10.6); CARBON DIOXIDE LEVEL 28 MMOL/L (20-31); CHLORIDE LEVEL 109 MMOL/L (98-107); CREATININE FOR GFR 0.76 MG/DL (0.55-1.30); GLOMERULAR FILTRATION RATE > 60.0 (>32); GLUCOSE, FASTING 93 MG/DL (74-106); POTASSIUM SERUM 4.5 MMOL/L (3.5-5.1); SODIUM LEVEL 143 MMOL/L (136-145)
== END ==
PROVIDERS: ATTEND Internal Medicine
DX: I11.9 Hypertensive heart disease without heart failure (principal)

== ENCOUNTER → 2023-08-08 | Outpatient (REF) | payer MEDICARE ==
[2023-08-08 14:18] LABS: BASO % 0.5 % (0.0-1.0); EOS # 0.3 10^3/uL (0.0-0.5); EOS % 3.8 % (0.0-3.0); HEMATOCRIT 34.5 % (36.0-47.0); LYMPH % 24.6 % (24.0-44.0); MEAN CORPUSCULAR HEMOGLOBIN 29.4 pg (27.0-33.0); MEAN CORPUSCULAR HGB CONC 31.9 g/dl (32.0-36.5); MEAN CORPUSCULAR VOLUME 92.2 fl (80.0-96.0); MONO # 0.5 10^3/uL (0.0-0.8); MONO % 5.7 % (2.0-8.0); NEUTROPHILS # 5.3 10^3/uL (1.5-8.5); NEUTROPHILS % 65.2 % (36.0-66.0); PLATELET COUNT, AUTOMATED 233 10^3/uL (150-450); RED BLOOD COUNT 3.74 10^6/uL (4.00-5.40); WHITE BLOOD COUNT 8.1 10^3/uL (4.0-10.0)
[2023-08-08 14:41] LABS: BLOOD UREA NITROGEN 25 MG/DL (9-23); CALCIUM LEVEL 8.7 MG/DL (8.3-10.6); CARBON DIOXIDE LEVEL 28 MMOL/L (20-31); CHLORIDE LEVEL 109 MMOL/L (98-107); CREATININE FOR GFR 0.68 MG/DL (0.55-1.30); GLOMERULAR FILTRATION RATE > 60.0 (>32); GLUCOSE, FASTING 96 MG/DL (74-106); POTASSIUM SERUM 4.6 MMOL/L (3.5-5.1); SODIUM LEVEL 142 MMOL/L (136-145)
== END ==
PROVIDERS: ATTEND Internal Medicine
DX: R09.81 Nasal congestion (principal); Z79.899 Other long term (current) drug therapy

== ENCOUNTER → 2023-08-10 | Outpatient (REF) | payer MEDICARE | PROVIDERS: ATTEND Internal Medicine | DX: J06.9 Acute upper respiratory infection, unspecified (principal); Z53.8 Procedure and treatment not carried out for other reasons ==

== ENCOUNTER → 2023-08-10 | Outpatient (REF) | payer MEDICARE | PROVIDERS: ATTEND Internal Medicine | DX: I51.7 Cardiomegaly (principal); R09.81 Nasal congestion ==

== ENCOUNTER → 2023-09-02 | Outpatient (REF) | payer MEDICARE ==
[2023-09-02 10:17] LABS: HEMATOCRIT 36.2 % (36.0-47.0); HEMOGLOBIN 11.4 g/dl (12.0-15.5); MEAN CORPUSCULAR HEMOGLOBIN 29.5 pg (27.0-33.0); MEAN CORPUSCULAR HGB CONC 31.5 g/dl (32.0-36.5); MEAN CORPUSCULAR VOLUME 93.8 fl (80.0-96.0); PLATELET COUNT, AUTOMATED 209 10^3/uL (150-450); RED BLOOD COUNT 3.86 10^6/uL (4.00-5.40)
[2023-09-02 10:44] LABS: BLOOD UREA NITROGEN 20 MG/DL (9-23); CALCIUM LEVEL 9.1 MG/DL (8.3-10.6); CARBON DIOXIDE LEVEL 29 MMOL/L (20-31); CHLORIDE LEVEL 107 MMOL/L (98-107); CREATININE FOR GFR 0.65 MG/DL (0.55-1.30); GLOMERULAR FILTRATION RATE > 60.0 (>32); GLUCOSE, FASTING 142 MG/DL (74-106); POTASSIUM SERUM 4.1 MMOL/L (3.5-5.1); SODIUM LEVEL 139 MMOL/L (136-145)
[2023-09-03 09:33] LABS: CARBAMAZEPINE (TEGRETOL) SO 4.2 mg/L (4.0-12.0)
[2023-09-04 18:22] LABS: PHENOBARBITAL (PRIMIDONE) 12.8 mg/L (15.0-40.0); PRIMIDONE, SERUM 5.2 mg/L (5.0-12.0)
[2023-09-05 06:17] LABS: LAMOTRIGINE (LAMICTAL) 0.8 mcg/mL (2.5-15.0)
== END ==
PROVIDERS: ATTEND Internal Medicine
DX: G40.909 Epilepsy, unspecified, not intractable, without status epilepticus (principal); Z79.899 Other long term (current) drug therapy

== ENCOUNTER → 2023-09-05 | Outpatient (CLI) | payer MEDICARE ==
[2023-09-05 18:51] LABS: BASO % 0.4 % (0.0-1.0); EOS # 0.3 10^3/uL (0.0-0.5); EOS % 4.2 % (0.0-3.0); HEMATOCRIT 35.5 % (36.0-47.0); HEMOGLOBIN 11.4 g/dl (12.0-15.5); LYMPH # 2.6 10^3/uL (1.5-5.0); LYMPH % 33.8 % (24.0-44.0); MEAN CORPUSCULAR HEMOGLOBIN 30.5 pg (27.0-33.0); MEAN CORPUSCULAR HGB CONC 32.1 g/dl (32.0-36.5); MEAN CORPUSCULAR VOLUME 94.9 fl (80.0-96.0); MONO # 0.5 10^3/uL (0.0-0.8); MONO % 6.3 % (2.0-8.0); NEUTROPHILS # 4.2 10^3/uL (1.5-8.5); NEUTROPHILS % 55.2 % (36.0-66.0); PLATELET COUNT, AUTOMATED 224 10^3/uL (150-450); RED BLOOD COUNT 3.74 10^6/uL (4.00-5.40); WHITE BLOOD COUNT 7.6 10^3/uL (4.0-10.0)
[2023-09-05 19:23] LABS: BLOOD UREA NITROGEN 21 MG/DL (9-23); CARBON DIOXIDE LEVEL 29 MMOL/L (20-31); CHLORIDE LEVEL 107 MMOL/L (98-107); CREATININE FOR GFR 0.65 MG/DL (0.55-1.30); GLOMERULAR FILTRATION RATE > 60.0 (>32); GLUCOSE, FASTING 76 MG/DL (74-106); POTASSIUM SERUM 4.7 MMOL/L (3.5-5.1); SODIUM LEVEL 142 MMOL/L (136-145)
[2023-09-05 19:53] LABS: AMORPHOUS SEDIMENT SMALL (NEGATIVE); APPEARANCE, URINE TURBID (CLEAR); BACTERIA, URINE AUTO NEGATIVE (NEGATIVE); BILIRUBIN, URINE AUTO NEGATIVE (NEGATIVE); BLOOD, URINE BLOOD 1+ (NEGATIVE); COLOR, URINE YELLOW (YELLOW); GLUCOSE, URINE (UA) AUTO NEGATIVE (NEGATIVE); KETONE, URINE AUTO TRACE mg/dL (NEGATIVE); LEUKOCYTE ESTERASE, URINE AUTO TRACE (NEGATIVE); NITRITE, URINE AUTO NEGATIVE (NEGATIVE); PROTEIN, URINE AUTO 2+ mg/dL (NEGATIVE); RBC, URINE AUTO 8 /HPF (0-3); SPECIFIC GRAVITY URINE AUTO 1.018 (1.002-1.035); SQUAMOUS EPITHELIAL CELL UR AU 14 /HPF (0-6); WBC, URINE AUTO 56 /HPF (0-3)
== END ==
LOC: M LAB 17:44
PROVIDERS: ATTEND Internal Medicine
DX: R53.83 Other fatigue (principal); R46.4 Slowness and poor responsiveness

== ENCOUNTER → 2023-09-21 | Outpatient (REF) | payer MEDICARE | PROVIDERS: ATTEND Internal Medicine | DX: M79.89 Other specified soft tissue disorders (principal); M25.872 Other specified joint disorders, left ankle and foot ==

== ENCOUNTER → 2023-10-02 | Outpatient (REF) | payer MEDICARE ==
[2023-10-02 15:41] LABS: HEMATOCRIT 35.6 % (36.0-47.0); HEMOGLOBIN 11.4 g/dl (12.0-15.5); MEAN CORPUSCULAR HEMOGLOBIN 30.8 pg (27.0-33.0); MEAN CORPUSCULAR VOLUME 96.2 fl (80.0-96.0); PLATELET COUNT, AUTOMATED 222 10^3/uL (150-450); WHITE BLOOD COUNT 7.1 10^3/uL (4.0-10.0)
[2023-10-02 16:04] LABS: BLOOD UREA NITROGEN 21 MG/DL (9-23); CALCIUM LEVEL 8.8 MG/DL (8.3-10.6); CARBON DIOXIDE LEVEL 27 MMOL/L (20-31); CHLORIDE LEVEL 109 MMOL/L (98-107); CREATININE FOR GFR 0.62 MG/DL (0.55-1.30); GLOMERULAR FILTRATION RATE > 60.0 (>32); GLUCOSE, FASTING 100 MG/DL (74-106); POTASSIUM SERUM 4.3 MMOL/L (3.5-5.1); SODIUM LEVEL 144 MMOL/L (136-145)
== END ==
PROVIDERS: ATTEND Internal Medicine
DX: R53.83 Other fatigue (principal)

== ENCOUNTER → 2023-10-07 | Outpatient (REF) | payer MEDICARE ==
[2023-10-07 10:43] LABS: HEMATOCRIT 37.7 % (36.0-47.0); HEMOGLOBIN 11.6 g/dl (12.0-15.5); MEAN CORPUSCULAR HEMOGLOBIN 30.3 pg (27.0-33.0); MEAN CORPUSCULAR HGB CONC 30.8 g/dl (32.0-36.5); MEAN CORPUSCULAR VOLUME 98.4 fl (80.0-96.0); PLATELET COUNT, AUTOMATED 226 10^3/uL (150-450); RED BLOOD COUNT 3.83 10^6/uL (4.00-5.40); WHITE BLOOD COUNT 6.8 10^3/uL (4.0-10.0)
[2023-10-07 11:12] LABS: BLOOD UREA NITROGEN 27 MG/DL (9-23); CALCIUM LEVEL 9.3 MG/DL (8.3-10.6); CARBON DIOXIDE LEVEL 27 MMOL/L (20-31); CHLORIDE LEVEL 110 MMOL/L (98-107); CREATININE FOR GFR 0.73 MG/DL (0.55-1.30); GLOMERULAR FILTRATION RATE > 60.0 (>32); GLUCOSE, FASTING 180 MG/DL (74-106); POTASSIUM SERUM 4.1 MMOL/L (3.5-5.1); SODIUM LEVEL 145 MMOL/L (136-145)
[2023-10-07 11:15] LABS: THYROID STIMULATING HORMONE 0.607 uIU/ML (0.55-4.78)
== END ==
PROVIDERS: ATTEND Internal Medicine
DX: I11.9 Hypertensive heart disease without heart failure (principal); Z79.899 Other long term (current) drug therapy

== ENCOUNTER → 2023-10-21 | Outpatient (REF) | PROVIDERS: ATTEND Internal Medicine | DX: M79.89 Other specified soft tissue disorders (principal) ==

== ENCOUNTER → 2023-10-29 | Outpatient (REF) | payer MEDICARE | PROVIDERS: ATTEND Nurse Practitioner Adult Health | DX: M85.88 Other specified disorders of bone density and structure, other site (principal); M79.89 Other specified soft tissue disorders; M77.31 Calcaneal spur, right foot ==

== ENCOUNTER → 2023-11-11 | Outpatient (REF) | payer MEDICARE ==
[2023-11-11 09:45] LABS: HEMATOCRIT 36.6 % (36.0-47.0); HEMOGLOBIN 11.8 g/dl (12.0-15.5); MEAN CORPUSCULAR HEMOGLOBIN 30.6 pg (27.0-33.0); MEAN CORPUSCULAR HGB CONC 32.2 g/dl (32.0-36.5); MEAN CORPUSCULAR VOLUME 95.1 fl (80.0-96.0); PLATELET COUNT, AUTOMATED 216 10^3/uL (150-450); RED BLOOD COUNT 3.85 10^6/uL (4.00-5.40); WHITE BLOOD COUNT 6.9 10^3/uL (4.0-10.0)
[2023-11-11 10:21] LABS: BLOOD UREA NITROGEN 18 MG/DL (9-23); CALCIUM LEVEL 9.5 MG/DL (8.3-10.6); CARBON DIOXIDE LEVEL 29 MMOL/L (20-31); CHLORIDE LEVEL 107 MMOL/L (98-107); CREATININE FOR GFR 0.65 MG/DL (0.55-1.30); GLOMERULAR FILTRATION RATE > 60.0 (>32); GLUCOSE, FASTING 153 MG/DL (74-106); POTASSIUM SERUM 3.9 MMOL/L (3.5-5.1); SODIUM LEVEL 143 MMOL/L (136-145)
[2023-11-12 10:26] LABS: CARBAMAZEPINE (TEGRETOL) SO 2.1 mg/L (4.0-12.0)
[2023-11-14 11:08] LABS: PHENOBARBITAL (PRIMIDONE) 10.1 mg/L (15.0-40.0); PRIMIDONE, SERUM < 2.5 mg/L (5.0-12.0)
[2023-11-14 17:03] LABS: LAMOTRIGINE (LAMICTAL) 0.7 mcg/mL (2.5-15.0)
== END ==
PROVIDERS: ATTEND Internal Medicine
DX: G40.909 Epilepsy, unspecified, not intractable, without status epilepticus (principal)

== ENCOUNTER → 2023-11-25 | Outpatient (REF) | payer MEDICARE ==
[2023-11-25 13:16] LABS: BASO % 0.3 % (0.0-1.0); EOS # 0.2 10^3/uL (0.0-0.5); EOS % 2.8 % (0.0-3.0); HEMATOCRIT 34.1 % (36.0-47.0); HEMOGLOBIN 10.8 g/dl (12.0-15.5); LYMPH # 1.9 10^3/uL (1.5-5.0); MEAN CORPUSCULAR HEMOGLOBIN 30.6 pg (27.0-33.0); MEAN CORPUSCULAR HGB CONC 31.7 g/dl (32.0-36.5); MEAN CORPUSCULAR VOLUME 96.6 fl (80.0-96.0); MONO # 0.4 10^3/uL (0.0-0.8); NEUTROPHILS # 4.6 10^3/uL (1.5-8.5); NEUTROPHILS % 63.6 % (36.0-66.0); PLATELET COUNT, AUTOMATED 200 10^3/uL (150-450); RED BLOOD COUNT 3.53 10^6/uL (4.00-5.40); WHITE BLOOD COUNT 7.2 10^3/uL (4.0-10.0)
[2023-11-25 13:28] LABS: ALBUMIN 3.1 G/DL (3.2-5.2); ALKALINE PHOSPHATASE 196 U/L (46-116); ALT/SGPT < 9 U/L (7.0-40); AST/SGOT < 8 U/L (<34); BILIRUBIN,TOTAL 0.2 MG/DL (0.3-1.2); BLOOD UREA NITROGEN 27 MG/DL (9-23); CALCIUM LEVEL 8.8 MG/DL (8.3-10.6); CARBON DIOXIDE LEVEL 28 MMOL/L (20-31); CHLORIDE LEVEL 109 MMOL/L (98-107); CREATININE FOR GFR 0.64 MG/DL (0.55-1.30); GLOMERULAR FILTRATION RATE > 60.0 (>32); GLUCOSE, FASTING 96 MG/DL (74-106); POTASSIUM SERUM 4.1 MMOL/L (3.5-5.1); SODIUM LEVEL 141 MMOL/L (136-145); TOTAL PROTEIN 6.1 G/DL (5.7-8.2)
[2023-11-26 13:54] LABS: CARBAMAZEPINE (TEGRETOL) SO 5.5 mg/L (4.0-12.0)
== END ==
PROVIDERS: ATTEND Internal Medicine
DX: N18.9 Chronic kidney disease, unspecified (principal); Z79.899 Other long term (current) drug therapy

== ENCOUNTER → 2024-01-06 | Outpatient (REF) | payer MEDICARE ==
[~2024-01-06] MED LIST changes: -SENN-111 PO; +SENN-165 PO
[2024-01-06 09:48] LABS: HEMATOCRIT 36.5 % (36.0-47.0); HEMOGLOBIN 11.6 g/dl (12.0-15.5); MEAN CORPUSCULAR HEMOGLOBIN 30.4 pg (27.0-33.0); MEAN CORPUSCULAR HGB CONC 31.8 g/dl (32.0-36.5); MEAN CORPUSCULAR VOLUME 95.8 fl (80.0-96.0); PLATELET COUNT, AUTOMATED 230 10^3/uL (150-450); RED BLOOD COUNT 3.81 10^6/uL (4.00-5.40); WHITE BLOOD COUNT 6.8 10^3/uL (4.0-10.0)
[2024-01-06 10:11] LABS: BLOOD UREA NITROGEN 22 MG/DL (9-23); CALCIUM LEVEL 9.4 MG/DL (8.3-10.6); CARBON DIOXIDE LEVEL 27 MMOL/L (20-31); CHLORIDE LEVEL 108 MMOL/L (98-107); CREATININE FOR GFR 0.64 MG/DL (0.55-1.30); GLOMERULAR FILTRATION RATE > 60.0 (>32); GLUCOSE, FASTING 92 MG/DL (74-106); POTASSIUM SERUM 4.4 MMOL/L (3.5-5.1); SODIUM LEVEL 143 MMOL/L (136-145)
== END ==
PROVIDERS: ATTEND Internal Medicine
DX: I11.9 Hypertensive heart disease without heart failure (principal)

== ENCOUNTER → 2024-03-09 | Outpatient (REF) | payer MEDICARE ==
[~2024-03-09] MED LIST changes: -BAYE325T12 PO; +BAYE325T2 PO
[2024-03-10 11:47] LABS: CARBAMAZEPINE (TEGRETOL) SO 3.8 mg/L (4.0-12.0)
== END ==
PROVIDERS: ATTEND Internal Medicine
DX: G40.909 Epilepsy, unspecified, not intractable, without status epilepticus (principal)

== ENCOUNTER → 2024-04-06 | Outpatient (REF) | payer MEDICARE ==
[2024-04-06 10:49] LABS: HEMATOCRIT 37.3 % (36.0-47.0); HEMOGLOBIN 11.8 g/dl (12.0-15.5); MEAN CORPUSCULAR HEMOGLOBIN 30.3 pg (27.0-33.0); MEAN CORPUSCULAR HGB CONC 31.6 g/dl (32.0-36.5); MEAN CORPUSCULAR VOLUME 95.9 fl (80.0-96.0); PLATELET COUNT, AUTOMATED 229 10^3/uL (150-450); RED BLOOD COUNT 3.89 10^6/uL (4.00-5.40); WHITE BLOOD COUNT 7.1 10^3/uL (4.0-10.0)
[2024-04-06 11:17] LABS: BLOOD UREA NITROGEN 25 MG/DL (9-23); CALCIUM LEVEL 8.8 MG/DL (8.3-10.6); CARBON DIOXIDE LEVEL 27 MMOL/L (20-31); CHLORIDE LEVEL 109 MMOL/L (98-107); CREATININE FOR GFR 0.66 MG/DL (0.55-1.30); GLOMERULAR FILTRATION RATE > 60.0 (>32); GLUCOSE, FASTING 139 MG/DL (74-106); POTASSIUM SERUM 4.3 MMOL/L (3.5-5.1); SODIUM LEVEL 144 MMOL/L (136-145)
== END ==
PROVIDERS: ATTEND Internal Medicine
DX: I11.9 Hypertensive heart disease without heart failure (principal)

== ENCOUNTER → 2024-04-11 | Outpatient (REF) | payer MEDICARE ==
[2024-04-11 17:59] LABS: AMORPHOUS SEDIMENT SMALL (NEGATIVE); APPEARANCE, URINE HAZY (CLEAR); BACTERIA, URINE AUTO NEGATIVE (NEGATIVE); BILIRUBIN, URINE AUTO NEGATIVE (NEGATIVE); BLOOD, URINE BLOOD 1+ (NEGATIVE); COLOR, URINE AMBER (YELLOW); GLUCOSE, URINE (UA) AUTO NEGATIVE (NEGATIVE); KETONE, URINE AUTO NEGATIVE (NEGATIVE); LEUKOCYTE ESTERASE, URINE AUTO TRACE (NEGATIVE); MUCUS, URINE SMALL (NEGATIVE); NITRITE, URINE AUTO NEGATIVE (NEGATIVE); PROTEIN, URINE AUTO NEGATIVE (NEGATIVE); RBC, URINE AUTO 2 /HPF (0-3); SPECIFIC GRAVITY URINE AUTO 1.021 (1.002-1.035); SQUAMOUS EPITHELIAL CELL UR AU 50 /HPF (0-6); UROBILINOGEN, URINE AUTO 0.2 mg/dL (0.0-2.0); WBC, URINE AUTO 6 /HPF (0-3)
== END ==
PROVIDERS: ATTEND Internal Medicine
DX: N39.0 Urinary tract infection, site not specified (principal)

== ENCOUNTER → 2024-05-25 | Outpatient (REF) | payer MEDICARE ==
[~2024-05-25] MED LIST changes: +DENO60SY2 SC; -PROL60SO SC
[2024-05-25 09:26] LABS: BASO % 0.5 % (0.0-1.0); EOS # 0.2 10^3/uL (0.0-0.5); EOS % 3.7 % (0.0-3.0); HEMATOCRIT 34.4 % (36.0-47.0); HEMOGLOBIN 11.2 g/dl (12.0-15.5); LYMPH # 1.7 10^3/uL (1.5-5.0); LYMPH % 26.5 % (24.0-44.0); MEAN CORPUSCULAR HEMOGLOBIN 31.1 pg (27.0-33.0); MEAN CORPUSCULAR HGB CONC 32.6 g/dl (32.0-36.5); MEAN CORPUSCULAR VOLUME 95.6 fl (80.0-96.0); MONO # 0.4 10^3/uL (0.0-0.8); MONO % 6.8 % (2.0-8.0); NEUTROPHILS # 3.9 10^3/uL (1.5-8.5); NEUTROPHILS % 62.2 % (36.0-66.0); PLATELET COUNT, AUTOMATED 205 10^3/uL (150-450); WHITE BLOOD COUNT 6.3 10^3/uL (4.0-10.0)
[2024-05-25 09:56] LABS: ALBUMIN 3.1 G/DL (3.2-5.2); ALKALINE PHOSPHATASE 181 U/L (35-104); ALT/SGPT 9 U/L (7.0-40); AST/SGOT 8 U/L (<34); BILIRUBIN,TOTAL 0.3 MG/DL (0.3-1.2); BLOOD UREA NITROGEN 20 MG/DL (9-23); CALCIUM LEVEL 8.8 MG/DL (8.3-10.6); CARBON DIOXIDE LEVEL 26 MMOL/L (20-31); CHLORIDE LEVEL 108 MMOL/L (98-107); CREATININE FOR GFR 0.64 MG/DL (0.55-1.30); GLOMERULAR FILTRATION RATE > 60.0 (>32); GLUCOSE, FASTING 87 MG/DL (74-106); POTASSIUM SERUM 4.4 MMOL/L (3.5-5.1); SODIUM LEVEL 143 MMOL/L (136-145); TOTAL PROTEIN 6.2 G/DL (5.7-8.2)
== END ==
PROVIDERS: ATTEND Internal Medicine
DX: G40.909 Epilepsy, unspecified, not intractable, without status epilepticus (principal)

== ENCOUNTER → 2024-06-06 | Outpatient (REF) | payer MEDICARE ==
[2024-06-06 10:49] LABS: HEMOGLOBIN A1c 4.9 % (4.0-6.0)
== END ==
PROVIDERS: ATTEND Internal Medicine
DX: G40.909 Epilepsy, unspecified, not intractable, without status epilepticus (principal); Z79.899 Other long term (current) drug therapy

== ENCOUNTER → 2024-07-04 | Outpatient (REF) | payer MEDICARE ==
[2024-07-04 09:42] LABS: HEMATOCRIT 33.9 % (36.0-47.0); HEMOGLOBIN 10.7 g/dl (12.0-15.5); MEAN CORPUSCULAR HEMOGLOBIN 30.6 pg (27.0-33.0); MEAN CORPUSCULAR HGB CONC 31.6 g/dl (32.0-36.5); MEAN CORPUSCULAR VOLUME 96.9 fl (80.0-96.0); PLATELET COUNT, AUTOMATED 202 10^3/uL (150-450); WHITE BLOOD COUNT 5.5 10^3/uL (4.0-10.0)
[2024-07-04 10:04] LABS: CALCIUM LEVEL 8.8 MG/DL (8.3-10.6); CREATININE FOR GFR 0.75 MG/DL (0.55-1.30); POTASSIUM SERUM 4.5 MMOL/L (3.5-5.1)
== END ==
PROVIDERS: ATTEND Internal Medicine
DX: I11.9 Hypertensive heart disease without heart failure (principal)

== ENCOUNTER → 2024-09-07 | Outpatient (REF) | payer MEDICARE ==
[2024-09-09 13:18] LABS: CARBAMAZEPINE (TEGRETOL) SO 3.5 mg/L (4.0-12.0)
[2024-09-10 14:56] LABS: LAMOTRIGINE (LAMICTAL) 0.9 mcg/mL (2.5-15.0)
[2024-09-10 17:46] LABS: PHENOBARBITAL (PRIMIDONE) 10.1 mg/L (15.0-40.0); PRIMIDONE, SERUM 6.9 mg/L (5.0-12.0)
== END ==
PROVIDERS: ATTEND Internal Medicine
DX: I11.9 Hypertensive heart disease without heart failure (principal)

== ENCOUNTER → 2024-10-05 | Outpatient (REF) | payer MEDICARE ==
[2024-10-05 10:08] LABS: PLATELET COUNT, AUTOMATED 207 10^3/uL (150-450)
[2024-10-05 10:43] LABS: CALCIUM LEVEL 8.8 MG/DL (8.3-10.6); CARBON DIOXIDE LEVEL 28.0 MMOL/L (20-31); CHLORIDE LEVEL 106.0 MMOL/L (98-107); CREATININE FOR GFR 0.71 MG/DL (0.55-1.30); GLOMERULAR FILTRATION RATE 83.3 (>32); POTASSIUM SERUM 4.1 MMOL/L (3.5-5.1); SODIUM LEVEL 143.0 MMOL/L (136-145)
== END ==
PROVIDERS: ATTEND Internal Medicine
DX: I11.9 Hypertensive heart disease without heart failure (principal); Z79.899 Other long term (current) drug therapy

== ENCOUNTER → 2024-11-09 | Outpatient (REF) | payer MEDICARE ==
[~2024-11-09] MED LIST changes: -ASPI-655 PO; +ASPI-737 PO
[2024-11-09 12:08] LABS: PLATELET COUNT, AUTOMATED 197 10^3/uL (150-450)
== END ==
PROVIDERS: ATTEND Physician Assistant
DX: I10 Essential (primary) hypertension (principal)

== ENCOUNTER → 2025-01-04 | Outpatient (REF) | payer MEDICARE ==
[2025-01-04 12:42] LABS: PLATELET COUNT, AUTOMATED 222 10^3/uL (150-450)
[2025-01-04 13:08] LABS: CALCIUM LEVEL 8.4 MG/DL (8.3-10.6); CARBON DIOXIDE LEVEL 29.0 MMOL/L (20-31); CHLORIDE LEVEL 105.0 MMOL/L (98-107); CREATININE FOR GFR 0.79 MG/DL (0.55-1.30); GLOMERULAR FILTRATION RATE 72.8 (>32); POTASSIUM SERUM 4.0 MMOL/L (3.5-5.1); SODIUM LEVEL 142.0 MMOL/L (136-145)
== END ==
PROVIDERS: ATTEND Internal Medicine
DX: I11.9 Hypertensive heart disease without heart failure (principal)

== ENCOUNTER 2025-01-13 19:49 | Emergency (ER) | payer MEDICARE ==
[2025-01-13 20:25] LABS: BASO # 0.0 10^3/uL (0.0-0.2); BASO % 0.4 % (0.0-1.0); EOS # 0.2 10^3/uL (0.0-0.5); EOS % 3.0 % (0.0-3.0); LYMPH # 1.7 10^3/uL (1.5-5.0); LYMPH % 30.5 % (24.0-44.0); MONO # 0.4 10^3/uL (0.0-0.8); MONO % 6.7 % (2.0-8.0); NEUTROPHILS # 3.4 10^3/uL (1.5-8.5); NEUTROPHILS % 59.0 % (36.0-66.0); PLATELET COUNT, AUTOMATED 208 10^3/uL (150-450)
[2025-01-13 20:55] LABS: ALT/SGPT < 9 U/L (7.0-40); AST/SGOT 14 U/L (<34); CALCIUM LEVEL 8.8 MG/DL (8.3-10.6); CARBON DIOXIDE LEVEL 28 MMOL/L (20-31); CHLORIDE LEVEL 109 MMOL/L (98-107); CREATININE FOR GFR 0.70 MG/DL (0.55-1.30); GLOMERULAR FILTRATION RATE 84.2 (>32); POTASSIUM SERUM 4.4 MMOL/L (3.5-5.1); SODIUM LEVEL 147 MMOL/L (136-145)
[2025-01-13] MEDS: KETOROLAC 30 MG/ML 1 ML VIAL IV ONE (21:02)
[2025-01-13 21:46] LABS: INR 0.99
[2025-01-13] MEDS ORDERED: ISOVUE-370 76% 100 ML VIAL As Ordered ONE (22:07)
[2025-01-13 23:52] LABS: KETONE, URINE AUTO RFX TRACE mg/dL (NEGATIVE); LEUKOCYTE ESTERASE UR AUTO RFX NEGATIVE (NEGATIVE); MUCUS, URINE RFX LARGE (NEGATIVE); NITRITE, URINE AUTO RFX NEGATIVE (NEGATIVE); RBC, URINE AUTO RFX 14 /HPF (0-3); SQUAM EPITHELIAL CELL UR AURFX 65 /HPF (0-6); WBC, URINE AUTO RFX 5 /HPF (0-3)
[2025-01-14 01:57] VITALS: BP 143/69; TEMP 97.5; O2SAT 97
== END 2025-01-14 02:00 | disposition home or self-care (01) ==
LOC: M ED 19:49 → M ED INP 22:06 → UNDOADMIN 22:06 → M ED 01-14 02:00
DX: R10.9 Unspecified abdominal pain (principal); K59.00 Constipation, unspecified; I44.0 Atrioventricular block, first degree; I10 Essential (primary) hypertension; K21.9 Gastro-esophageal reflux disease without esophagitis; E55.9 Vitamin D deficiency, unspecified; Z86.73 Personal history of transient ischemic attack (TIA), and cerebral infarction without residual deficits; Z88.8 Allergy status to other drugs, medicaments and biological substances; Z91.09 Other allergy status, other than to drugs and biological substances; Z79.1 Long term (current) use of non-steroidal anti-inflammatories (NSAID); Z79.899 Other long term (current) drug therapy; Z79.02 Long term (current) use of antithrombotics/antiplatelets; Z79.82 Long term (current) use of aspirin; Z96.622 Presence of left artificial elbow joint
CPT/HCPCS: 74177; 80048; 80076; 81001; 83605; 83690; 84145; 85025; 85610; 85730; 93005; 96374; 99285; J1885; Q9967

== ENCOUNTER → 2025-01-23 | Outpatient (REF) | payer MEDICARE | PROVIDERS: ATTEND Internal Medicine | DX: Z79.899 Other long term (current) drug therapy (principal) ==

== ENCOUNTER → 2025-01-24 | Outpatient (REF) | payer MEDICARE | PROVIDERS: ATTEND Physician Assistant | DX: M25.542 Pain in joints of left hand (principal) ==

== ENCOUNTER → 2025-02-21 | Outpatient (REF) | payer MEDICARE | PROVIDERS: ATTEND Internal Medicine | DX: R05.9 Cough, unspecified (principal) ==